=== PATIENT | male | born 1950 | race Two or more races ===

== ENCOUNTER 2020-03-30 10:50 | Emergency (ER) | payer OTHER ==
[~2020-03-30] VITALS: Ht 180.3 cm; Wt 81.6 kg
[2020-03-30] MEDS ORDERED: SODIUM CHLORIDE 0.9% 1,000 ML IVB ONE (11:15)
[2020-03-30 11:41] LABS: Basophils # (auto) 0.1 10 ^3/uL (0-0.2); Basophils % (auto) 0.9 % (0.0-2.0); Eosinophils # (auto) 0.2 10 ^3/uL (0-0.8); Hematocrit 47.5 % (41.0-53.0); Hemoglobin 16.2 g/dL (13.5-17.5); Lymphocytes # (auto) 1.3 10 ^3/uL (0.4-5.4); Lymphocytes % (auto) 19.1 % (10.0-50.0); Mean Corpuscular Hemoglobin 30.5 pg (28.0-32.0); Mean Corpuscular Hgb Conc. 34.1 g/dL (32.0-36.0); Mean Corpuscular Volume 89.4 fL (80.0-100.0); Monocytes # (auto) 0.3 10 ^3/uL (0-1.3); Monocytes % (auto) 5.1 % (0.0-12.0); Neutrophils # (auto) 4.7 10 ^3/uL (1.6-8.6); Neutrophils % (auto) 71.9 % (37.0-80.0); Platelet Count (auto) 198 10^3/uL (140-450); Red Blood Cells 5.31 10^6/uL (4.5-5.90); White Blood Cell 6.6 10^3/uL (4.4-10.8)
[2020-03-30] MEDS ORDERED: LABETALOL HCL 5 MG/ML 4ML SYRINGE IV ONE (11:45)
[2020-03-30 11:54] LABS: Albumin 3.4 g/dL (3.4-5.0); Calcium 8.9 mg/dL (8.5-10.1); Potassium 3.3 mmol/L (3.5-5.1)
[2020-03-30 11:58] LABS: Bilirubin, Total 0.6 mg/dL (0.2-1.0); Total Protein 7.1 g/dL (6.4-8.2)
[2020-03-30] MEDS ORDERED: POTASSIUM EFFERVESENT TAB 25 MEQ PO ONE (12:45)
[2020-03-30 14:39] LABS: Urine Bacteria NONE SEEN /hpf (None Seen); Urine Blood TRACE /uL (Negative); Urine Specific Gravity 1.019 (1.001-1.035); Urine WBC 2 /hpf (0 - 3)
[2020-03-30 14:54] LABS: Alcohol, Urine < 3.0 mg/dL (0-10); Amphetamine Screen, Urine NEGATIVE (NEGATIVE); Barbiturate Scree,Urine NEGATIVE (NEGATIVE); Benzodiazephine Screen, Urine NEGATIVE (NEGATIVE); Cannabinoid Screen, Urine NEGATIVE (NEGATIVE); Cocaine Screen, Urine NEGATIVE (NEGATIVE); Opiate Scree,Urine NEGATIVE (NEGATIVE); Phencyclidine Screen, Urine NEGATIVE (NEGATIVE)
[2020-03-30] MEDS ORDERED: MECLIZINE HCL 25 MG TAB PO ONE (16:00)
[2020-03-30] MEDS ORDERED: SODIUM CHLORIDE 0.9% 1,000 ML IV ONE (16:00)
[2020-03-30] MEDS ORDERED: INSULIN LISPRO (HUMAN) 100 UNITS/ML ML SC ONE ×2 (16:00→18:00)
[2020-03-30] MEDS ORDERED: LISINOPRIL 20 MG TAB PO ONE (18:30)
[2020-03-30 20:00] VITALS: BP 176/91
== END 2020-03-30 20:27 | disposition home or self-care (01) ==
LOC: ER 10:50
DX: I10 Essential (primary) hypertension (principal); E11.65 Type 2 diabetes mellitus with hyperglycemia; H81.10 Benign paroxysmal vertigo, unspecified ear; E11.21 Type 2 diabetes mellitus with diabetic nephropathy; E87.6 Hypokalemia
CPT/HCPCS: 36415; 71046; 80053; 80307; 81001; 82962; 83036; 83690; 83735; 84443; 85025; 93005; 96361; 96372; 96374; 99285; J1815; J3490; J7030; J8597

== ENCOUNTER 2021-03-23 08:07 | Inpatient (IN) | payer OTHER ==
[~2021-03-23] VITALS: Ht 182.9 cm; Wt 83.2 kg
[2021-03-23] MEDS ORDERED: SODIUM CHLORIDE 0.9% 1,000 ML IV ONE ×3 (08:30→16:45)
[2021-03-23] MEDS ORDERED: amLODIPine BESYLATE 5 MG TAB PO ONE (08:30)
[2021-03-23] MEDS ORDERED: ONDANSETRON HCL 4 MG/2 ML VIAL IV ONE (08:30)
[2021-03-23] MEDS ORDERED: LABETALOL HCL 5 MG/ML 4ML SYRINGE IV ONE (08:30)
[2021-03-23] MEDS ORDERED: KETOROLAC TROMETH 30 MG/ML 1ML VIAL IV ONE (08:30)
[2021-03-23 08:43] LABS: Urine Bacteria NONE SEEN /hpf (None Seen); Urine Blood 3+ /uL (Negative); Urine Specific Gravity 1.021 (1.001-1.035); Urine WBC 37 /hpf (0 - 3)
[2021-03-23 08:58] LABS: Basophils # (auto) 0.1 10 ^3/uL (0-0.2); Basophils % (auto) 0.8 % (0.0-2.0); Eosinophils # (auto) 0.1 10 ^3/uL (0-0.8); Eosinophils % (auto) 0.5 % (0.0-7.0); Hematocrit 41.9 % (41.0-53.0); Hemoglobin 14.7 g/dL (13.5-17.5); Lymphocytes # (auto) 0.9 10 ^3/uL (0.4-5.4); Lymphocytes % (auto) 8.1 % (10.0-50.0); Mean Corpuscular Hemoglobin 30.9 pg (28.0-32.0); Mean Corpuscular Hgb Conc. 35.2 g/dL (32.0-36.0); Mean Corpuscular Volume 87.9 fL (80.0-100.0); Monocytes # (auto) 0.4 10 ^3/uL (0-1.3); Neutrophils # (auto) 9.1 10 ^3/uL (1.6-8.6); Neutrophils % (auto) 86.6 % (37.0-80.0); Nucleated Red Blood Cells % 0.1 %; Platelet Count (auto) 284 10^3/uL (140-450); Red Blood Cells 4.77 10^6/uL (4.5-5.90); White Blood Cell 10.6 10^3/uL (4.4-10.8)
[2021-03-23 09:13] LABS: Albumin 3.3 g/dL (3.4-5.0); Anion Gap 10 (5-15); Blood Urea Nitrogen 30 mg/dL (7-18); Calcium 9.4 mg/dL (8.5-10.1); Carbon Dioxide 24 mmol/L (21-32); Chloride 93 mmol/L (98-107); Sodium 127 mmol/L (136-145)
[2021-03-23] MEDS ORDERED: cefTRIAXone 1GM/50ML D5W 50 ML IV ONE (09:15)
[2021-03-23] MEDS ORDERED: TAMSULOSIN HYDROCHLORIDE 0.4 MG CAP PO ONE (09:15)
[2021-03-23 09:17] LABS: Alanine Aminotransferase 54 U/L (16-61); Aspartate Aminotransferase 45 U/L (15-37); BUN/Creatinine Ratio 13.8; GFR African American 39 mL/min; GFR Non-African American 32 mL/min; Total Protein 7.4 g/dL (6.4-8.2)
[2021-03-23 09:22] LABS: Alkaline Phosphatase 269 U/L (45-117)
[2021-03-23 09:28] LABS: CRP High Sensitivity 0.47 mg/dL (< 0.3); Glucose 563 mg/dL (74-106)
[2021-03-23 10:07] LABS: Partial Thromboplastin Time 25.1 sec (23.0-31.2)
[2021-03-23] MEDS ORDERED: SODIUM CHLORIDE 0.9% 1,000 ML IV SCH (10:30)
[2021-03-23] MEDS ORDERED: INSULIN LANTUS (GLARGINE) 1 /0.01ml (100units/ml) SC SCH (10:30)
[2021-03-23] MEDS ORDERED: ACETAMINOPHEN 500 MG TAB PO PRN (10:30)
[2021-03-23] MEDS ORDERED: MORPHINE SULF INJ 2 MG/ML SYRINGE 1ML IV PRN ×2 (10:30)
[2021-03-23] MEDS ORDERED: DEXTROSE (50%) 50ML SYRG IV PRN ×3 (10:30→14:15)
[2021-03-23] MEDS ORDERED: ONDANSETRON HCL 4 MG/2 ML VIAL IV PRN (10:30)
[2021-03-23] MEDS ORDERED: LABETALOL HCL 5 MG/ML 4ML SYRINGE IV PRN (10:30)
[2021-03-23] MEDS ORDERED: NITROGLYCERIN 0.4 MG SL TAB SL PRN (10:30)
[2021-03-23 11:01] LABS: Cholesterol 267 mg/dL (< 200)
[2021-03-23 11:04] LABS: HDL Cholesterol 49 mg/dL (40-59); LDL Cholesterol 140 mg/dL (< 100); Triglycerides 344 mg/dL (< 150)
[2021-03-23] MEDS ORDERED: InsuLIN REG 1unit/0.01ml Soln (100units/ml) SC SCH ×2 (11:30→16:00)
[2021-03-23] MEDS ORDERED: ACCU-CHEK COMFORT CURVE STRIP VI SCH ×2 (11:30→16:00)
[2021-03-23 13:00] VITALS: BP 109/59
[2021-03-23] MEDS ORDERED: InsuLIN REG 1unit/0.01ml Soln (100units/ml) IV ONE ×2 (13:15→16:45)
[2021-03-23] MEDS: InsuLIN REG 1unit/0.01ml Soln (100units/ml) SC SCH ×2 (15:46→21:37)
[2021-03-23] MEDS: ACCU-CHEK COMFORT CURVE STRIP VI SCH ×2 (16:21→21:34)
[2021-03-23 17:00] VITALS: BP_SYST 108; BP_SYST 115; BP_DIAS 62; BP_DIAS 64
[2021-03-23] MEDS: TAMSULOSIN HYDROCHLORIDE 0.4 MG CAP PO SCH (17:52)
[2021-03-23] MEDS: GABAPENTIN 100 MG CAP PO SCH (21:34)
[2021-03-23] MEDS: SODIUM CHLORIDE 0.9% 1,000 ML IV SCH (21:34)
[2021-03-23] MEDS: INSULIN LANTUS (GLARGINE) 1 /0.01ml (100units/ml) SC SCH (21:36)
[2021-03-23 22:00] VITALS: BP 141/77
[2021-03-24] VITALS (12 sets, daily range): BP systolic 108–151; BP diastolic 62–86
[2021-03-24] MEDS: SODIUM CHLORIDE 0.9% 1,000 ML IV SCH ×3 (01:22→16:45)
[2021-03-24] MEDS: ACCU-CHEK COMFORT CURVE STRIP VI SCH ×5 (01:22→21:44)
[2021-03-24] MEDS: HYDROcodone-ACET 5/325MG TAB PO PRN ×2 (01:26→10:07)
[2021-03-24] MEDS: InsuLIN REG 1unit/0.01ml Soln (100units/ml) SC SCH ×5 (01:31→21:40)
[2021-03-24 07:07] LABS: Basophils # (auto) 0.1 10 ^3/uL (0-0.2); Basophils % (auto) 0.7 % (0.0-2.0); Eosinophils # (auto) 0.2 10 ^3/uL (0-0.8); Eosinophils % (auto) 2.8 % (0.0-7.0); Hematocrit 33.4 % (41.0-53.0); Hemoglobin 11.8 g/dL (13.5-17.5); Lymphocytes # (auto) 1.4 10 ^3/uL (0.4-5.4); Lymphocytes % (auto) 18.1 % (10.0-50.0); Mean Corpuscular Hgb Conc. 35.5 g/dL (32.0-36.0); Mean Corpuscular Volume 87.5 fL (80.0-100.0); Monocytes # (auto) 0.6 10 ^3/uL (0-1.3); Monocytes % (auto) 7.1 % (0.0-12.0); Neutrophils # (auto) 5.7 10 ^3/uL (1.6-8.6); Neutrophils % (auto) 71.3 % (37.0-80.0); Nucleated Red Blood Cells % 0.1 %; Platelet Count (auto) 239 10^3/uL (140-450); Red Blood Cells 3.82 10^6/uL (4.5-5.90); Red Cell Distribution Width 14.2 % (11.8-14.3)
[2021-03-24 07:17] LABS: INR 0.99 (0.9-1.15)
[2021-03-24 07:20] LABS: Potassium 4.1 mmol/L (3.5-5.1)
[2021-03-24 07:27] LABS: BUN/Creatinine Ratio 15.7; Calcium 8.4 mg/dL (8.5-10.1)
[2021-03-24] MEDS: cefTRIAXone 1GM/50ML D5W 50 ML IV SCH (08:54)
[2021-03-24] MEDS: ASPirin 81 mg TAB PO SCH (10:00)
[2021-03-24] MEDS: INSULIN LANTUS (GLARGINE) 1 /0.01ml (100units/ml) SC SCH ×2 (10:00→21:41)
[2021-03-24] MEDS: FAMOTIDINE 20 MG TAB PO SCH (10:00)
[2021-03-24] MEDS: GABAPENTIN 100 MG CAP PO SCH ×2 (10:00→21:18)
[2021-03-24] MEDS: amLODIPine BESYLATE 5 MG TAB PO SCH (10:06)
[2021-03-24] MEDS: METOPROLOL SUCCINATE XL 50 MG TAB PO SCH (10:06)
[2021-03-24] MEDS ORDERED: LACTULOSE 20Gm/30ML SOLN PO ONE (12:30)
[2021-03-24] MEDS ORDERED: fentaNYL CITRATE 100 MCG/2 ML VL IV ONE (13:00)
[2021-03-24] MEDS ORDERED: MIDAZOLAM HCL 1MG/1ML-2 ML VIAL IV ONE (13:00)
[2021-03-24] MEDS ORDERED: ATOR20TA50 PO (16:15)
[2021-03-24] MEDS ORDERED: ATEN-60 PO (16:15)
[2021-03-24] MEDS ORDERED: GLIP5TAB12 PO (16:15)
[2021-03-24] MEDS ORDERED: EMPA1TAB PO (16:15)
[2021-03-24] MEDS ORDERED: METF-370 PO (16:15)
[2021-03-24] MEDS ORDERED: INSU0.2I SC (16:15)
[2021-03-24] MEDS ORDERED: SITA100T7 PO (16:15)
[2021-03-24] MEDS ORDERED: ASPI-543 PO (16:15)
[2021-03-24] MEDS ORDERED: FENO145T27 PO (16:15)
[2021-03-24] MEDS: TAMSULOSIN HYDROCHLORIDE 0.4 MG CAP PO SCH (17:22)
[2021-03-24] MEDS: LACTULOSE 20Gm/30ML SOLN PO SCH (21:18)
[2021-03-25 05:30] VITALS: BP 132/81
[2021-03-25] MEDS: ACCU-CHEK COMFORT CURVE STRIP VI SCH ×4 (06:40→21:30)
[2021-03-25] MEDS: InsuLIN REG 1unit/0.01ml Soln (100units/ml) SC SCH ×4 (06:40→21:31)
[2021-03-25] MEDS: LACTULOSE 20Gm/30ML SOLN PO SCH ×2 (08:18→21:30)
[2021-03-25 09:00] VITALS: BP 151/81
[2021-03-25] MEDS: cefTRIAXone 1GM/50ML D5W 50 ML IV SCH (09:48)
[2021-03-25] MEDS: ASPirin 81 mg TAB PO SCH (09:49)
[2021-03-25] MEDS: FAMOTIDINE 20 MG TAB PO SCH (09:50)
[2021-03-25] MEDS: GABAPENTIN 100 MG CAP PO SCH ×2 (09:51→21:30)
[2021-03-25] MEDS: amLODIPine BESYLATE 5 MG TAB PO SCH (09:52)
[2021-03-25] MEDS: METOPROLOL SUCCINATE XL 50 MG TAB PO SCH (09:53)
[2021-03-25] MEDS: SODIUM CHLORIDE 0.9% 1,000 ML IV SCH ×3 (09:55→23:29)
[2021-03-25] MEDS: INSULIN LANTUS (GLARGINE) 1 /0.01ml (100units/ml) SC SCH ×2 (09:56→21:31)
[2021-03-25] MEDS ORDERED: FLEET ENEMA(ADULT) 135 ML PR ONE (10:45)
[2021-03-25 13:00] VITALS: BP 145/84
[2021-03-25] MEDS ORDERED: MAGNESIUM CITRATE SOLUTION 300 ML BTL PO ONE (13:30)
[2021-03-25 17:00] VITALS: BP 134/71
[2021-03-25] MEDS: TAMSULOSIN HYDROCHLORIDE 0.4 MG CAP PO SCH (17:17)
[2021-03-25 22:00] VITALS: BP 108/82
[2021-03-26 05:00] VITALS: BP 124/64
[2021-03-26] MEDS: InsuLIN REG 1unit/0.01ml Soln (100units/ml) SC SCH ×2 (06:32→11:30)
[2021-03-26] MEDS: ACCU-CHEK COMFORT CURVE STRIP VI SCH ×2 (06:32→11:30)
[2021-03-26] MEDS: SODIUM CHLORIDE 0.9% 1,000 ML IV SCH (08:45)
[2021-03-26 09:00] VITALS: BP 120/57
[2021-03-26] MEDS ORDERED: DOCUSATE SOD 100 MG CAP PO SCH (10:00)
[2021-03-26] MEDS: ASPirin 81 mg TAB PO SCH (10:21)
[2021-03-26] MEDS: cefTRIAXone 1GM/50ML D5W 50 ML IV SCH (10:21)
[2021-03-26] MEDS: LACTULOSE 20Gm/30ML SOLN PO SCH (10:22)
[2021-03-26] MEDS: GABAPENTIN 100 MG CAP PO SCH (10:22)
[2021-03-26] MEDS: INSULIN LANTUS (GLARGINE) 1 /0.01ml (100units/ml) SC SCH (10:23)
[2021-03-26] MEDS: METOPROLOL SUCCINATE XL 50 MG TAB PO SCH (10:23)
[2021-03-26] MEDS: amLODIPine BESYLATE 5 MG TAB PO SCH (10:24)
== END 2021-03-26 13:35 | disposition home or self-care (01) | DRG 690 ==
LOC: ER 08:07 → TELE 10:26 → TELE-WESTW 11:53
PROVIDERS: ADMIT Nurse Practitioner Acute Care; ATTEND Family Medicine
PROC: 0T9130Z Drainage of Left Kidney with Drainage Device, Percutaneous Approach (ICD-10-PCS; principal; 2021-03-24)
DX: N13.6 Pyonephrosis (principal); N17.0 Acute kidney failure with tubular necrosis; E11.65 Type 2 diabetes mellitus with hyperglycemia; E78.5 Hyperlipidemia, unspecified; I10 Essential (primary) hypertension; E11.42 Type 2 diabetes mellitus with diabetic polyneuropathy; E78.00 Pure hypercholesterolemia, unspecified; K59.00 Constipation, unspecified; K76.0 Fatty (change of) liver, not elsewhere classified; N40.0 Benign prostatic hyperplasia without lower urinary tract symptoms; Z79.4 Long term (current) use of insulin; Z86.73 Personal history of transient ischemic attack (TIA), and cerebral infarction without residual deficits; Z87.891 Personal history of nicotine dependence; Z87.442 Personal history of urinary calculi; Z93.6 Other artificial openings of urinary tract status; Z20.822 Contact with and (suspected) exposure to COVID-19
CPT/HCPCS: 10022; 36415; 50432; 71045; 74150; 74176; 77012; 80048; 80053; 80061; 81001; 82728; 82962; 83036; 83605; 83615; 84443; 84484; 85025; 85610; 85730; 86141; 87040; 87086; 87426; 93005; 96361; 96365; 96372; 96375; C1729; G0378; J0696; J1815; J1885; J2250; J2405; J3490

== ENCOUNTER 2021-04-09 14:25 | Emergency (ER) | payer OTHER ==
[~2021-04-09] VITALS: Ht 182.9 cm; Wt 81.6 kg
[~2021-04-09 14:25] MED LIST: ASPI-543 PO; ATEN-60 PO; ATOR20TA50 PO; EMPA1TAB PO; FENO145T27 PO; GLIP5TAB12 PO; INSU0.2I SC; METF-370 PO; SITA100T7 PO
[2021-04-09 15:16] LABS: Basophils # (auto) 0.1 10 ^3/uL (0-0.2); Basophils % (auto) 1.4 % (0.0-2.0); Eosinophils # (auto) 0.2 10 ^3/uL (0-0.8); Eosinophils % (auto) 4.4 % (0.0-7.0); Hematocrit 32.1 % (41.0-53.0); Hemoglobin 11.5 g/dL (13.5-17.5); Lymphocytes # (auto) 1.1 10 ^3/uL (0.4-5.4); Lymphocytes % (auto) 23.1 % (10.0-50.0); Mean Corpuscular Hemoglobin 31.4 pg (28.0-32.0); Mean Corpuscular Hgb Conc. 35.7 g/dL (32.0-36.0); Mean Corpuscular Volume 87.9 fL (80.0-100.0); Monocytes # (auto) 0.4 10 ^3/uL (0-1.3); Monocytes % (auto) 7.6 % (0.0-12.0); Neutrophils # (auto) 2.9 10 ^3/uL (1.6-8.6); Neutrophils % (auto) 63.5 % (37.0-80.0); Nucleated Red Blood Cells % 0.1 %; Platelet Count (auto) 242 10^3/uL (140-450); Red Blood Cells 3.66 10^6/uL (4.5-5.90); Red Cell Distribution Width 13.7 % (11.8-14.3); White Blood Cell 4.6 10^3/uL (4.4-10.8)
[2021-04-09 15:26] LABS: BUN/Creatinine Ratio 14.5; Calcium 8.1 mg/dL (8.5-10.1); Potassium 3.9 mmol/L (3.5-5.1)
[2021-04-09 15:30] LABS: Bilirubin, Total 0.4 mg/dL (0.2-1.0); Total Protein 6.1 g/dL (6.4-8.2)
[2021-04-09 16:35] LABS: Urine Bacteria NONE SEEN /hpf (None Seen); Urine Blood TRACE /uL (Negative); Urine Budding Yeast MODERATE /hpf (None Seen); Urine Specific Gravity 1.026 (1.001-1.035); Urine WBC 175 /hpf (0 - 3)
[2021-04-09 16:45] VITALS: BP 128/72
[2021-04-09] MEDS ORDERED: KETOROLAC TROMETH 30 MG/ML 1ML VIAL IV ONE (17:15)
== END 2021-04-09 18:05 | disposition home or self-care (01) ==
LOC: ER 14:25
DX: N20.0 Calculus of kidney (principal); N39.0 Urinary tract infection, site not specified; E11.9 Type 2 diabetes mellitus without complications; E78.5 Hyperlipidemia, unspecified; I10 Essential (primary) hypertension; Z87.891 Personal history of nicotine dependence
CPT/HCPCS: 36415; 74176; 80053; 81001; 85025; 96374; 99284; J1885

== ENCOUNTER 2021-04-18 01:44 | Inpatient (IN) | payer OTHER ==
[~2021-04-18] VITALS: Ht 182.9 cm; Wt 77.4 kg
[2021-04-18 02:52] LABS: Basophils # (auto) 0.1 10 ^3/uL (0-0.2); Basophils % (auto) 0.8 % (0.0-2.0); Eosinophils # (auto) 0 10 ^3/uL (0-0.8); Eosinophils % (auto) 0.1 % (0.0-7.0); Hematocrit 34.8 % (41.0-53.0); Hemoglobin 11.8 g/dL (13.5-17.5); Lymphocytes # (auto) 0.5 10 ^3/uL (0.4-5.4); Lymphocytes % (auto) 5.1 % (10.0-50.0); Mean Corpuscular Hemoglobin 30.2 pg (28.0-32.0); Mean Corpuscular Hgb Conc. 33.8 g/dL (32.0-36.0); Mean Corpuscular Volume 89.4 fL (80.0-100.0); Monocytes # (auto) 0.6 10 ^3/uL (0-1.3); Monocytes % (auto) 6.2 % (0.0-12.0); Neutrophils # (auto) 7.9 10 ^3/uL (1.6-8.6); Neutrophils % (auto) 87.8 % (37.0-80.0); Red Blood Cells 3.89 10^6/uL (4.5-5.90); Red Cell Distribution Width 13.9 % (11.8-14.3)
[2021-04-18 02:59] LABS: INR 1.05 (0.9-1.15); Partial Thromboplastin Time 28.5 sec (23.0-31.2)
[2021-04-18 03:00] LABS: Albumin 2.9 g/dL (3.4-5.0); Amylase 55 U/L (25-115); Anion Gap 12 (5-15); Blood Urea Nitrogen 29 mg/dL (7-18); Calcium 8.7 mg/dL (8.5-10.1); Carbon Dioxide 20 mmol/L (21-32); Chloride 106 mmol/L (98-107); Glucose 248 mg/dL (74-106); Lipase 101 U/L (73-393); Potassium 3.8 mmol/L (3.5-5.1); Sodium 138 mmol/L (136-145)
[2021-04-18 03:02] LABS: Alanine Aminotransferase 22 U/L (16-61); Aspartate Aminotransferase 20 U/L (15-37); BUN/Creatinine Ratio 13.7; GFR African American 40 mL/min; GFR Non-African American 33 mL/min
[2021-04-18 03:08] LABS: Alkaline Phosphatase 128 U/L (45-117); Bilirubin, Total 0.8 mg/dL (0.2-1.0); Total Protein 7.2 g/dL (6.4-8.2)
[2021-04-18 08:05] LABS: Urine Bacteria FEW /hpf (None Seen); Urine Blood 1+ /uL (Negative); Urine Budding Yeast MANY /hpf (None Seen); Urine Mucus FEW (None Seen); Urine Specific Gravity 1.022 (1.001-1.035); Urine WBC 302 /hpf (0 - 3); Urine WBC Clumps PRESENT /hpf (None Seen)
[2021-04-18] MEDS ORDERED: HYDROmorphone HCL 2 MG/ML VL IV ONE (09:15)
[2021-04-18] MEDS ORDERED: PROMETHAZINE HCL 25 MG/ML 1ML IV ONE (09:15)
[2021-04-18] MEDS ORDERED: cefTRIAXone 1GM/50ML D5W 50 ML IV ONE ×2 (10:45→13:45)
[2021-04-18] MEDS ORDERED: MORPHINE SULFATE INJECTION 2 MG/ML SYRG IV PRN (13:00)
[2021-04-18] MEDS ORDERED: NITROGLYCERIN 0.4 MG SL TAB SL PRN (13:00)
[2021-04-18] MEDS ORDERED: ONDANSETRON HCL 4 MG/2 ML VIAL IV PRN (13:45)
[2021-04-18] MEDS ORDERED: LABETALOL HCL 5 MG/ML 4ML SYRINGE IV PRN (13:45)
[2021-04-18] MEDS ORDERED: DEXTROSE (50%) 50ML SYRG IV PRN (13:45)
[2021-04-18] MEDS: SODIUM CHLORIDE 0.9% 1,000 ML IV SCH ×2 (15:06→23:45)
[2021-04-18] MEDS: FAMOTIDINE (10MG/ML) 2ML VL IV SCH (15:06)
[2021-04-18 15:45] VITALS: BP 156/108
[2021-04-18] MEDS: ACCU-CHEK COMFORT CURVE STRIP VI SCH ×2 (16:36→22:03)
[2021-04-18 17:00] VITALS: BP 156/108
[2021-04-18] MEDS: TAMSULOSIN HYDROCHLORIDE 0.4 MG CAP PO SCH (17:11)
[2021-04-18] MEDS: InsuLIN REG 1unit/0.01ml Soln (100units/ml) SC SCH ×2 (17:12→22:00)
[2021-04-18 22:00] VITALS: BP 194/91
[2021-04-18] MEDS: ACETAMINOPHEN 500 MG TAB PO PRN (22:15)
[2021-04-19 05:00] VITALS: BP 156/79
[2021-04-19 05:54] LABS: Basophils # (auto) 0.1 10 ^3/uL (0-0.2); Basophils % (auto) 0.7 % (0.0-2.0); Eosinophils # (auto) 0 10 ^3/uL (0-0.8); Eosinophils % (auto) 0.4 % (0.0-7.0); Hematocrit 31.3 % (41.0-53.0); Hemoglobin 11.1 g/dL (13.5-17.5); Lymphocytes # (auto) 0.3 10 ^3/uL (0.4-5.4); Lymphocytes % (auto) 3.3 % (10.0-50.0); Mean Corpuscular Hemoglobin 31.3 pg (28.0-32.0); Mean Corpuscular Hgb Conc. 35.5 g/dL (32.0-36.0); Mean Corpuscular Volume 88.2 fL (80.0-100.0); Monocytes # (auto) 0.7 10 ^3/uL (0-1.3); Monocytes % (auto) 8.4 % (0.0-12.0); Neutrophils # (auto) 7.2 10 ^3/uL (1.6-8.6); Neutrophils % (auto) 87.2 % (37.0-80.0); Red Blood Cells 3.55 10^6/uL (4.5-5.90); Red Cell Distribution Width 13.5 % (11.8-14.3); White Blood Cell 8.2 10^3/uL (4.4-10.8)
[2021-04-19] MEDS: ACCU-CHEK COMFORT CURVE STRIP VI SCH ×4 (06:03→21:53)
[2021-04-19 06:07] LABS: Albumin 2.6 g/dL (3.4-5.0); Calcium 8.6 mg/dL (8.5-10.1); Potassium 3.9 mmol/L (3.5-5.1)
[2021-04-19 06:11] LABS: BUN/Creatinine Ratio 16.3; Bilirubin, Total 0.9 mg/dL (0.2-1.0); Total Protein 6.5 g/dL (6.4-8.2)
[2021-04-19] MEDS: InsuLIN REG 1unit/0.01ml Soln (100units/ml) SC SCH ×4 (06:15→22:15)
[2021-04-19] MEDS: FAMOTIDINE (10MG/ML) 2ML VL IV SCH (08:57)
[2021-04-19] MEDS: cefTRIAXone 1GM/50ML D5W 50 ML IV SCH (08:57)
[2021-04-19] MEDS: SODIUM CHLORIDE 0.9% 1,000 ML IV SCH ×2 (08:57→22:03)
[2021-04-19 08:59] VITALS: BP 113/69
[2021-04-19] MEDS ORDERED: glipiZIDE 5 MG TAB PO ONE (09:45)
[2021-04-19] MEDS: traMADol HCL 50 MG TAB PO PRN (10:04)
[2021-04-19] MEDS: ASPirin-EC 81 mg tab PO SCH (10:28)
[2021-04-19] MEDS: ATENOLOL 25 MG TAB PO SCH ×2 (10:30→22:02)
[2021-04-19] MEDS: Glucerna Carbsteady SHAKE Vanilla 8oz PO SCH ×2 (12:53→18:29)
[2021-04-19 13:11] VITALS: BP 138/88
[2021-04-19 17:00] VITALS: BP 152/81
[2021-04-19] MEDS: TAMSULOSIN HYDROCHLORIDE 0.4 MG CAP PO SCH (17:20)
[2021-04-19] MEDS: glipiZIDE 5 MG TAB PO SCH (17:20)
[2021-04-19 22:00] VITALS: BP 148/81
[2021-04-19] MEDS: ATORVASTATIN 20 MG TAB PO SCH (22:02)
[2021-04-20 05:00] VITALS: BP 133/92
[2021-04-20] MEDS: SODIUM CHLORIDE 0.9% 1,000 ML IV SCH ×2 (05:45→15:45)
[2021-04-20] MEDS: InsuLIN REG 1unit/0.01ml Soln (100units/ml) SC SCH ×4 (06:16→22:00)
[2021-04-20] MEDS: ACCU-CHEK COMFORT CURVE STRIP VI SCH ×4 (06:16→22:00)
[2021-04-20] MEDS: glipiZIDE 5 MG TAB PO SCH ×2 (06:16→18:14)
[2021-04-20 06:58] LABS: Basophils # (auto) 0 10 ^3/uL (0-0.2); Basophils % (auto) 0.5 % (0.0-2.0); Eosinophils # (auto) 0.2 10 ^3/uL (0-0.8); Hematocrit 29.8 % (41.0-53.0); Hemoglobin 10.7 g/dL (13.5-17.5); Lymphocytes # (auto) 0.5 10 ^3/uL (0.4-5.4); Mean Corpuscular Hemoglobin 31.4 pg (28.0-32.0); Mean Corpuscular Hgb Conc. 35.9 g/dL (32.0-36.0); Mean Corpuscular Volume 87.3 fL (80.0-100.0); Monocytes # (auto) 0.8 10 ^3/uL (0-1.3); Monocytes % (auto) 10.1 % (0.0-12.0); Neutrophils # (auto) 6.3 10 ^3/uL (1.6-8.6); Neutrophils % (auto) 81.4 % (37.0-80.0); Red Blood Cells 3.42 10^6/uL (4.5-5.90); Red Cell Distribution Width 13.5 % (11.8-14.3); White Blood Cell 7.7 10^3/uL (4.4-10.8)
[2021-04-20 07:23] LABS: Calcium 8.6 mg/dL (8.5-10.1); Potassium 3.8 mmol/L (3.5-5.1)
[2021-04-20 07:26] LABS: BUN/Creatinine Ratio 16.6
[2021-04-20 08:00] VITALS: BP 148/81
[2021-04-20] MEDS: Glucerna Carbsteady SHAKE Vanilla 8oz PO SCH ×3 (08:00→18:14)
[2021-04-20 09:00] VITALS: BP 161/85
[2021-04-20] MEDS: FAMOTIDINE (10MG/ML) 2ML VL IV SCH (09:15)
[2021-04-20] MEDS: cefTRIAXone 1GM/50ML D5W 50 ML IV SCH (09:15)
[2021-04-20] MEDS: ATENOLOL 25 MG TAB PO SCH ×3 (09:17→22:52)
[2021-04-20] MEDS: ASPirin-EC 81 mg tab PO SCH (10:00)
[2021-04-20 10:21] LABS: INR 1.13 (0.9-1.15); Partial Thromboplastin Time 32.2 sec (23.0-31.2)
[2021-04-20] MEDS ORDERED: LIDOCAINE 2%HCL (LOCAL ANESTH.) INJ 20ML MDV ONE (11:39)
[2021-04-20 13:00] VITALS: BP 131/91
[2021-04-20] MEDS ORDERED: TADA2.5T PO (13:30)
[2021-04-20] MEDS ORDERED: AMLO-489 PO (13:30)
[2021-04-20] MEDS ORDERED: TAMS1CAP25 PO (13:30)
[2021-04-20] MEDS ORDERED: LEVO-28 PO (13:30)
[2021-04-20] MEDS ORDERED: DOCU1CAP46 PO (13:30)
[2021-04-20 17:00] VITALS: BP 159/73
[2021-04-20] MEDS: TAMSULOSIN HYDROCHLORIDE 0.4 MG CAP PO SCH (18:14)
[2021-04-20 22:00] VITALS: BP 162/87
[2021-04-20] MEDS: ATORVASTATIN 20 MG TAB PO SCH ×2 (22:00→22:52)
[2021-04-20] MEDS: ACETAMINOPHEN 500 MG TAB PO PRN (23:45)
[2021-04-21] MEDS: traMADol HCL 50 MG TAB PO PRN ×2 (01:44→18:10)
[2021-04-21 05:00] VITALS: BP 138/75
[2021-04-21] MEDS: SODIUM CHLORIDE 0.9% 1,000 ML IV SCH (05:25)
[2021-04-21] MEDS: glipiZIDE 5 MG TAB PO SCH ×2 (06:03→18:24)
[2021-04-21] MEDS: ACCU-CHEK COMFORT CURVE STRIP VI SCH ×4 (06:03→21:33)
[2021-04-21] MEDS: InsuLIN REG 1unit/0.01ml Soln (100units/ml) SC SCH ×4 (06:03→21:35)
[2021-04-21] MEDS: Glucerna Carbsteady SHAKE Vanilla 8oz PO SCH ×3 (08:00→18:24)
[2021-04-21] MEDS: cefTRIAXone 1GM/50ML D5W 50 ML IV SCH (09:00)
[2021-04-21] MEDS: ASPirin-EC 81 mg tab PO SCH (10:01)
[2021-04-21] MEDS: FAMOTIDINE (10MG/ML) 2ML VL IV SCH (10:01)
[2021-04-21] MEDS: ATENOLOL 25 MG TAB PO SCH ×2 (10:02→21:33)
[2021-04-21] MEDS ORDERED: amLODIPine BESYLATE 5 MG TAB PO ONE (10:30)
[2021-04-21] MEDS ORDERED: INSULIN LANTUS (GLARGINE) 1 /0.01ml (100units/ml) SC ONE (10:45)
[2021-04-21 14:25] LABS: BUN/Creatinine Ratio 19.6; Calcium 8.4 mg/dL (8.5-10.1); Potassium 3.5 mmol/L (3.5-5.1)
[2021-04-21] MEDS: TAMSULOSIN HYDROCHLORIDE 0.4 MG CAP PO SCH (18:24)
[2021-04-21] MEDS: ATORVASTATIN 20 MG TAB PO SCH (21:33)
[2021-04-21 22:00] VITALS: BP 134/69
[2021-04-22 05:25] VITALS: BP 152/81
[2021-04-22] MEDS: ACCU-CHEK COMFORT CURVE STRIP VI SCH ×4 (06:28→22:06)
[2021-04-22] MEDS: glipiZIDE 5 MG TAB PO SCH ×2 (06:36→18:17)
[2021-04-22] MEDS: InsuLIN REG 1unit/0.01ml Soln (100units/ml) SC SCH ×4 (06:36→22:07)
[2021-04-22] MEDS: DOCUSATE SOD 100 MG CAP PO PRN (06:53)
[2021-04-22 09:00] VITALS: BP 135/75
[2021-04-22] MEDS: Glucerna Carbsteady SHAKE Vanilla 8oz PO SCH ×3 (10:32→18:17)
[2021-04-22] MEDS: amLODIPine BESYLATE 5 MG TAB PO SCH (10:33)
[2021-04-22] MEDS: ATENOLOL 25 MG TAB PO SCH ×2 (10:34→22:06)
[2021-04-22] MEDS: INSULIN LANTUS (GLARGINE) 1 /0.01ml (100units/ml) SC SCH (11:54)
[2021-04-22 13:00] VITALS: BP 142/70
[2021-04-22] MEDS: cefTRIAXone 1GM/50ML D5W 50 ML IV SCH (16:44)
[2021-04-22 17:00] VITALS: BP 146/71
[2021-04-22] MEDS: TAMSULOSIN HYDROCHLORIDE 0.4 MG CAP PO SCH (18:17)
[2021-04-22] MEDS: FLUCONAZOLE 200MG/100ML 100 ML IV SCH (18:31)
[2021-04-22] MEDS: traMADol HCL 50 MG TAB PO PRN (19:54)
[2021-04-22 22:00] VITALS: BP 139/70
[2021-04-22] MEDS: ATORVASTATIN 20 MG TAB PO SCH (22:05)
[2021-04-23 05:00] VITALS: BP 138/71
[2021-04-23] MEDS: ACETAMINOPHEN 500 MG TAB PO PRN (05:37)
[2021-04-23 06:42] LABS: BUN/Creatinine Ratio 19.6; Calcium 8.1 mg/dL (8.5-10.1); Potassium 3.5 mmol/L (3.5-5.1)
[2021-04-23] MEDS: InsuLIN REG 1unit/0.01ml Soln (100units/ml) SC SCH ×3 (06:44→23:54)
[2021-04-23] MEDS: ACCU-CHEK COMFORT CURVE STRIP VI SCH ×4 (06:44→22:00)
[2021-04-23] MEDS: glipiZIDE 5 MG TAB PO SCH (06:44)
[2021-04-23] MEDS: Glucerna Carbsteady SHAKE Vanilla 8oz PO SCH ×3 (08:00→18:00)
[2021-04-23 09:00] VITALS: BP 136/73
[2021-04-23] MEDS: cefTRIAXone 1GM/50ML D5W 50 ML IV SCH (09:30)
[2021-04-23] MEDS: INSULIN LANTUS (GLARGINE) 1 /0.01ml (100units/ml) SC SCH (10:00)
[2021-04-23] MEDS: FLUCONAZOLE 200MG/100ML 100 ML IV SCH (10:32)
[2021-04-23] MEDS: ATENOLOL 25 MG TAB PO SCH ×2 (10:33→23:16)
[2021-04-23] MEDS: amLODIPine BESYLATE 5 MG TAB PO SCH (10:33)
[2021-04-23] MEDS: MORPHINE SULFATE INJECTION 2 MG/ML SYRG IV PRN (12:09)
[2021-04-23 13:00] VITALS: BP 152/89
[2021-04-23] MEDS: traMADol HCL 50 MG TAB PO PRN (14:33)
[2021-04-23] MEDS ORDERED: ONDANSETRON HCL 4 MG/2 ML VIAL ONE (15:57)
[2021-04-23] MEDS ORDERED: SODIUM CHLORIDE LOCK 10 ML ONE (15:57)
[2021-04-23] MEDS ORDERED: MIDAZOLAM HCL 2MG/2ML 2ml VIAL (1mg/ml) ONE (15:57)
[2021-04-23] MEDS ORDERED: fentaNYL CITRATE 100 MCG/2 ML VL ONE (15:57)
[2021-04-23] MEDS ORDERED: PROPOFOL 10 MG/ML 20 ML IV ONE (15:57)
[2021-04-23] MEDS: TAMSULOSIN HYDROCHLORIDE 0.4 MG CAP PO SCH (18:00)
[2021-04-23] MEDS ORDERED: IOHEXOL 300 MG/ML 100ML BOTTLE IJ ONE (18:07)
[2021-04-23] MEDS ORDERED: MORPHINE SULFATE 4 MG/ML SYR/VIAL IV PRN (18:15)
[2021-04-23] MEDS ORDERED: METOCLOPRAMIDE HCL 5MG/ml INJ 2ml VIAL IV PRN (18:15)
[2021-04-23] MEDS ORDERED: HYDROmorphone HCL 2 MG/ML VL IV PRN (18:15)
[2021-04-23] MEDS ORDERED: ACCU-CHEK COMFORT CURVE STRIP VI ONE (18:15)
[2021-04-23] MEDS ORDERED: ROCURONIUM 10MG/ML 10ML VIAL IV ONE (18:18)
[2021-04-23] MEDS: ATORVASTATIN 20 MG TAB PO SCH (23:15)
[2021-04-24 05:00] VITALS: BP 109/63
[2021-04-24] MEDS: glipiZIDE 5 MG TAB PO SCH ×2 (06:54→17:57)
[2021-04-24] MEDS: ACCU-CHEK COMFORT CURVE STRIP VI SCH ×4 (06:54→21:24)
[2021-04-24] MEDS: InsuLIN REG 1unit/0.01ml Soln (100units/ml) SC SCH ×4 (06:55→21:23)
[2021-04-24] MEDS: ACETAMINOPHEN 500 MG TAB PO PRN (07:07)
[2021-04-24] MEDS: Glucerna Carbsteady SHAKE Vanilla 8oz PO SCH ×3 (07:53→17:57)
[2021-04-24 08:00] VITALS: BP 103/59
[2021-04-24] MEDS: cefTRIAXone 1GM/50ML D5W 50 ML IV SCH (09:07)
[2021-04-24] MEDS: FLUCONAZOLE 200MG/100ML 100 ML IV SCH (09:59)
[2021-04-24] MEDS: ENOXAPARIN SOD 40 MG/0.4 ML SYRINGE SC SCH (10:01)
[2021-04-24] MEDS: ATENOLOL 25 MG TAB PO SCH ×2 (10:03→21:24)
[2021-04-24] MEDS: amLODIPine BESYLATE 5 MG TAB PO SCH (10:04)
[2021-04-24 10:22] VITALS: BP 127/62
[2021-04-24] MEDS: INSULIN LANTUS (GLARGINE) 1 /0.01ml (100units/ml) SC SCH (11:36)
[2021-04-24 11:46] VITALS: BP 128/69
[2021-04-24 16:51] VITALS: BP_SYST 126; BP_SYST 127; BP_DIAS 59; BP_DIAS 62
[2021-04-24] MEDS: TAMSULOSIN HYDROCHLORIDE 0.4 MG CAP PO SCH (17:57)
[2021-04-24] MEDS: ATORVASTATIN 20 MG TAB PO SCH (21:24)
[2021-04-24 21:30] VITALS: BP 133/73
[2021-04-25 04:41] VITALS: BP 140/70
[2021-04-25] MEDS: ACCU-CHEK COMFORT CURVE STRIP VI SCH ×4 (05:46→21:53)
[2021-04-25] MEDS: glipiZIDE 5 MG TAB PO SCH ×2 (05:46→17:47)
[2021-04-25] MEDS: InsuLIN REG 1unit/0.01ml Soln (100units/ml) SC SCH ×4 (05:46→22:02)
[2021-04-25] MEDS: Glucerna Carbsteady SHAKE Vanilla 8oz PO SCH ×3 (08:00→17:47)
[2021-04-25 09:00] VITALS: BP 137/71
[2021-04-25] MEDS: cefTRIAXone 1GM/50ML D5W 50 ML IV SCH (09:00)
[2021-04-25] MEDS: FLUCONAZOLE 200MG/100ML 100 ML IV SCH (10:00)
[2021-04-25] MEDS: amLODIPine BESYLATE 5 MG TAB PO SCH (10:00)
[2021-04-25] MEDS: INSULIN LANTUS (GLARGINE) 1 /0.01ml (100units/ml) SC SCH (10:00)
[2021-04-25] MEDS: ENOXAPARIN SOD 40 MG/0.4 ML SYRINGE SC SCH (10:00)
[2021-04-25] MEDS: ATENOLOL 25 MG TAB PO SCH ×2 (10:00→21:53)
[2021-04-25 13:00] VITALS: BP 134/78
[2021-04-25 17:00] VITALS: BP 159/79
[2021-04-25] MEDS: TAMSULOSIN HYDROCHLORIDE 0.4 MG CAP PO SCH (17:46)
[2021-04-25 20:00] VITALS: BP 143/69
[2021-04-25] MEDS: ATORVASTATIN 20 MG TAB PO SCH (21:51)
[2021-04-25 22:00] VITALS: BP 143/69
[2021-04-26 05:00] VITALS: BP 112/76
[2021-04-26] MEDS: ACCU-CHEK COMFORT CURVE STRIP VI SCH ×4 (06:49→22:25)
[2021-04-26] MEDS: InsuLIN REG 1unit/0.01ml Soln (100units/ml) SC SCH ×4 (06:54→22:25)
[2021-04-26] MEDS: glipiZIDE 5 MG TAB PO SCH ×2 (06:58→08:11)
[2021-04-26 07:02] LABS: Calcium 8.2 mg/dL (8.5-10.1); Potassium 3.7 mmol/L (3.5-5.1)
[2021-04-26] MEDS: Glucerna Carbsteady SHAKE Vanilla 8oz PO SCH ×3 (08:12→17:48)
[2021-04-26] MEDS: cefTRIAXone 1GM/50ML D5W 50 ML IV SCH (08:39)
[2021-04-26] MEDS: ENOXAPARIN SOD 40 MG/0.4 ML SYRINGE SC SCH (10:04)
[2021-04-26] MEDS: FLUCONAZOLE 200MG/100ML 100 ML IV SCH (10:04)
[2021-04-26] MEDS: amLODIPine BESYLATE 5 MG TAB PO SCH (10:04)
[2021-04-26] MEDS: ATENOLOL 25 MG TAB PO SCH ×2 (10:04→22:25)
[2021-04-26] MEDS: INSULIN LANTUS (GLARGINE) 1 /0.01ml (100units/ml) SC SCH (12:03)
[2021-04-26] MEDS: TAMSULOSIN HYDROCHLORIDE 0.4 MG CAP PO SCH (17:48)
[2021-04-26 22:00] VITALS: BP 156/82
[2021-04-26] MEDS: ATORVASTATIN 20 MG TAB PO SCH (22:24)
[2021-04-26] MEDS ORDERED: TEMAZEPAM 15 MG CAP PO ONE (23:00)
[2021-04-27 06:00] VITALS: BP 150/77
[2021-04-27] MEDS: glipiZIDE 5 MG TAB PO SCH ×2 (06:15→18:06)
[2021-04-27] MEDS: InsuLIN REG 1unit/0.01ml Soln (100units/ml) SC SCH ×4 (06:16→22:05)
[2021-04-27] MEDS: ACCU-CHEK COMFORT CURVE STRIP VI SCH ×4 (06:25→22:03)
[2021-04-27] MEDS: Glucerna Carbsteady SHAKE Vanilla 8oz PO SCH ×3 (08:00→18:07)
[2021-04-27 09:00] VITALS: BP 133/71
[2021-04-27] MEDS: INSULIN LANTUS (GLARGINE) 1 /0.01ml (100units/ml) SC SCH (10:00)
[2021-04-27] MEDS: FLUCONAZOLE 200MG/100ML 100 ML IV SCH (10:21)
[2021-04-27] MEDS: ATENOLOL 25 MG TAB PO SCH ×2 (10:22→22:04)
[2021-04-27] MEDS: amLODIPine BESYLATE 5 MG TAB PO SCH (10:22)
[2021-04-27] MEDS: ENOXAPARIN SOD 40 MG/0.4 ML SYRINGE SC SCH (10:24)
[2021-04-27 13:00] VITALS: BP 154/78
[2021-04-27 17:00] VITALS: BP 174/83
[2021-04-27] MEDS: TAMSULOSIN HYDROCHLORIDE 0.4 MG CAP PO SCH (18:06)
[2021-04-27 22:00] VITALS: BP 157/83
[2021-04-27] MEDS: ATORVASTATIN 20 MG TAB PO SCH (22:04)
[2021-04-27] MEDS: TEMAZEPAM 15 MG CAP PO PRN (22:46)
[2021-04-28] MEDS: MORPHINE SULFATE INJECTION 2 MG/ML SYRG IV PRN (04:59)
[2021-04-28 05:00] VITALS: BP 156/73
[2021-04-28] MEDS: glipiZIDE 5 MG TAB PO SCH ×2 (06:47→18:29)
[2021-04-28] MEDS: InsuLIN REG 1unit/0.01ml Soln (100units/ml) SC SCH ×4 (06:48→22:17)
[2021-04-28] MEDS: ACCU-CHEK COMFORT CURVE STRIP VI SCH ×4 (06:57→22:16)
[2021-04-28] MEDS: Glucerna Carbsteady SHAKE Vanilla 8oz PO SCH ×3 (08:00→18:00)
[2021-04-28 09:00] VITALS: BP 151/86
[2021-04-28] MEDS: FLUCONAZOLE 200MG/100ML 100 ML IV SCH (10:26)
[2021-04-28] MEDS: ATENOLOL 25 MG TAB PO SCH (10:30)
[2021-04-28] MEDS ORDERED: amLODIPine BESYLATE 5 MG TAB PO ONE ×2 (10:30→11:00)
[2021-04-28] MEDS: ENOXAPARIN SOD 40 MG/0.4 ML SYRINGE SC SCH (10:31)
[2021-04-28] MEDS: INSULIN LANTUS (GLARGINE) 1 /0.01ml (100units/ml) SC SCH (10:35)
[2021-04-28 13:30] VITALS: BP 142/83
[2021-04-28 17:05] VITALS: BP 140/75
[2021-04-28] MEDS: TAMSULOSIN HYDROCHLORIDE 0.4 MG CAP PO SCH (18:28)
[2021-04-28 22:00] VITALS: BP 146/77
[2021-04-28] MEDS: ATORVASTATIN 20 MG TAB PO SCH (22:16)
[2021-04-28] MEDS: TEMAZEPAM 15 MG CAP PO PRN (22:18)
[2021-04-29 05:00] VITALS: BP 143/79
[2021-04-29] MEDS: InsuLIN REG 1unit/0.01ml Soln (100units/ml) SC SCH ×4 (06:04→22:00)
[2021-04-29] MEDS: glipiZIDE 5 MG TAB PO SCH (06:04)
[2021-04-29] MEDS: ACCU-CHEK COMFORT CURVE STRIP VI SCH ×4 (06:05→22:29)
[2021-04-29 07:40] LABS: Anion Gap 8 (5-15); BUN/Creatinine Ratio 16.8; Blood Urea Nitrogen 21 mg/dL (7-18); Calcium 8.1 mg/dL (8.5-10.1); Carbon Dioxide 19 mmol/L (21-32); Chloride 110 mmol/L (98-107); GFR African American 73 mL/min; GFR Non-African American 61 mL/min; Glucose 82 mg/dL (74-106); Potassium 3.7 mmol/L (3.5-5.1); Sodium 137 mmol/L (136-145)
[2021-04-29] MEDS: Glucerna Carbsteady SHAKE Vanilla 8oz PO SCH ×3 (08:00→18:00)
[2021-04-29 08:53] VITALS: BP 150/80
[2021-04-29] MEDS: amLODIPine BESYLATE 5 MG TAB PO SCH (09:55)
[2021-04-29] MEDS: FLUCONAZOLE 200MG/100ML 100 ML IV SCH (09:56)
[2021-04-29] MEDS: ENOXAPARIN SOD 40 MG/0.4 ML SYRINGE SC SCH (09:56)
[2021-04-29] MEDS: INSULIN LANTUS (GLARGINE) 1 /0.01ml (100units/ml) SC SCH (09:59)
[2021-04-29 13:00] VITALS: BP 136/78
[2021-04-29 17:33] VITALS: BP 134/78
[2021-04-29] MEDS: TAMSULOSIN HYDROCHLORIDE 0.4 MG CAP PO SCH (18:00)
[2021-04-29 22:00] VITALS: BP 148/83
[2021-04-29] MEDS: TEMAZEPAM 15 MG CAP PO PRN (22:28)
[2021-04-29] MEDS: ATORVASTATIN 20 MG TAB PO SCH (22:29)
[2021-04-30 05:48] VITALS: BP 147/77
[2021-04-30] MEDS: InsuLIN REG 1unit/0.01ml Soln (100units/ml) SC SCH ×4 (06:53→21:42)
[2021-04-30] MEDS: ACCU-CHEK COMFORT CURVE STRIP VI SCH ×4 (06:53→21:41)
[2021-04-30] MEDS ORDERED: ceFAZolin 1GM/50ML 100 ML IV ONE (07:58)
[2021-04-30] MEDS: Glucerna Carbsteady SHAKE Vanilla 8oz PO SCH ×3 (08:00→17:47)
[2021-04-30 09:06] VITALS: BP 142/77
[2021-04-30] MEDS ORDERED: NEOSTIGMINE 1 MG/ML INJ (10mg/10ML VIAL) IV ONE (09:10)
[2021-04-30] MEDS ORDERED: GLYCOPYRROLATE 0.2 MG/ML 1ML VIAL IV ONE (09:10)
[2021-04-30] MEDS ORDERED: IOHEXOL 300 MG/ML 100ML BOTTLE IJ ONE (09:14)
[2021-04-30] MEDS ORDERED: MIDAZOLAM HCL 2MG/2ML 2ml VIAL (1mg/ml) ONE (09:25)
[2021-04-30] MEDS ORDERED: fentaNYL CITRATE 100 MCG/2 ML VL ONE (09:25)
[2021-04-30] MEDS: amLODIPine BESYLATE 5 MG TAB PO SCH (10:00)
[2021-04-30] MEDS: INSULIN LANTUS (GLARGINE) 1 /0.01ml (100units/ml) SC SCH (10:00)
[2021-04-30] MEDS: FLUCONAZOLE 200MG/100ML 100 ML IV SCH (10:00)
[2021-04-30] MEDS ORDERED: ONDANSETRON HCL 4 MG/2 ML VIAL IV PRN (11:45)
[2021-04-30] MEDS ORDERED: HYDROmorphone HCL 2 MG/ML VL ONE (11:48)
[2021-04-30] MEDS: HYDROmorphone HCL 2 MG/ML VL IV PRN ×3 (12:01→12:22)
[2021-04-30] MEDS ORDERED: TAM04C PO (15:29)
[2021-04-30] MEDS ORDERED: AMLO-496 PO (15:29)
[2021-04-30] MEDS ORDERED: LACTULOSE 20Gm/30ML SOLN PO ONE (16:00)
[2021-04-30 16:50] VITALS: BP 144/81
[2021-04-30] MEDS: TAMSULOSIN HYDROCHLORIDE 0.4 MG CAP PO SCH (17:46)
[2021-04-30] MEDS: ATORVASTATIN 20 MG TAB PO SCH (21:44)
[2021-04-30] MEDS: DOCUSATE SOD 100 MG CAP PO PRN (21:47)
[2021-04-30 22:00] VITALS: BP 145/75
[2021-04-30] MEDS: traMADol HCL 50 MG TAB PO PRN (23:25)
[2021-05-01] MEDS: MORPHINE SULFATE INJECTION 2 MG/ML SYRG IV PRN ×2 (00:06→09:55)
[2021-05-01 05:00] VITALS: BP 105/66
[2021-05-01 05:58] LABS: Basophils # (auto) 0.1 10 ^3/uL (0-0.2); Basophils % (auto) 0.9 % (0.0-2.0); Eosinophils # (auto) 0.1 10 ^3/uL (0-0.8); Eosinophils % (auto) 1.3 % (0.0-7.0); Hemoglobin 9.3 g/dL (13.5-17.5); Lymphocytes # (auto) 0.9 10 ^3/uL (0.4-5.4); Mean Corpuscular Hemoglobin 30.2 pg (28.0-32.0); Mean Corpuscular Hgb Conc. 34.5 g/dL (32.0-36.0); Mean Corpuscular Volume 87.5 fL (80.0-100.0); Monocytes # (auto) 0.5 10 ^3/uL (0-1.3); Monocytes % (auto) 6.1 % (0.0-12.0); Neutrophils # (auto) 7.3 10 ^3/uL (1.6-8.6); Neutrophils % (auto) 81.7 % (37.0-80.0); Red Blood Cells 3.09 10^6/uL (4.5-5.90); Red Cell Distribution Width 13.9 % (11.8-14.3); White Blood Cell 8.9 10^3/uL (4.4-10.8)
[2021-05-01 06:20] LABS: BUN/Creatinine Ratio 16.1; Calcium 7.6 mg/dL (8.5-10.1); Potassium 4.2 mmol/L (3.5-5.1)
[2021-05-01] MEDS: InsuLIN REG 1unit/0.01ml Soln (100units/ml) SC SCH (06:24)
[2021-05-01] MEDS: ACCU-CHEK COMFORT CURVE STRIP VI SCH (06:24)
[2021-05-01] MEDS: Glucerna Carbsteady SHAKE Vanilla 8oz PO SCH (08:00)
[2021-05-01 09:00] VITALS: BP 139/72
[2021-05-01] MEDS: FLUCONAZOLE 200MG/100ML 100 ML IV SCH (09:54)
[2021-05-01] MEDS: amLODIPine BESYLATE 5 MG TAB PO SCH (09:54)
[2021-05-01] MEDS ORDERED: INSULIN LANTUS (GLARGINE) 1 /0.01ml (100units/ml) SC SCH (10:00)
== END 2021-05-01 11:00 | disposition home or self-care (01) | DRG 659 ==
LOC: ER 01:44 → TELE 12:57 → ER 15:38 → TELE-WESTW 15:55 → WEST WING 04-21 10:23
PROVIDERS: ADMIT Internal Medicine; ATTEND Internal Medicine
PROC: 0T25X0Z Change Drainage Device in Kidney, External Approach (ICD-10-PCS; 2021-04-20)
PROC: BT121ZZ Fluoroscopy of Left Kidney using Low Osmolar Contrast (ICD-10-PCS; 2021-04-20)
PROC: 0TC78ZZ Extirpation of Matter from Left Ureter, Via Natural or Artificial Opening Endoscopic (ICD-10-PCS; 2021-04-23)
PROC: 0TJ Urinary System, Inspection (ICD-10-PCS; 2021-04-23)
PROC: 0T778DZ Dilation of Left Ureter with Intraluminal Device, Via Natural or Artificial Opening Endoscopic (ICD-10-PCS; 2021-04-30)
PROC: 0TP5X0Z Removal of Drainage Device from Kidney, External Approach (ICD-10-PCS; 2021-04-30)
PROC: 0T9B70Z Drainage of Bladder with Drainage Device, Via Natural or Artificial Opening (ICD-10-PCS; principal; 2021-04-30 09:20)
DX: N13.6 Pyonephrosis (principal); G93.41 Metabolic encephalopathy; E44.0 Moderate protein-calorie malnutrition; N99.522 Malfunction of incontinent external stoma of urinary tract; N17.0 Acute kidney failure with tubular necrosis; E11.21 Type 2 diabetes mellitus with diabetic nephropathy; D63.8 Anemia in other chronic diseases classified elsewhere; E11.65 Type 2 diabetes mellitus with hyperglycemia; R41.0 Disorientation, unspecified; E11.22 Type 2 diabetes mellitus with diabetic chronic kidney disease; N18.31 Chronic kidney disease, stage 3a; N40.0 Benign prostatic hyperplasia without lower urinary tract symptoms; E78.5 Hyperlipidemia, unspecified; Z68.23 Body mass index [BMI] 23.0-23.9, adult; Z87.442 Personal history of urinary calculi; Z20.822 Contact with and (suspected) exposure to COVID-19
CPT/HCPCS: 36415; 71045; 74018; 74176; 75984; 76001; 76775; 77002; 80048; 80053; 81001; 82150; 82962; 83605; 83690; 83735; 84154; 84443; 84484; 85025; 85049; 85610; 85730; 87040; 87086; 87088; 87426; 93005; 96365; 96375; 97110; 97116; 97530; A4223; C1729; G0378; J0690; J0696; J1450; J1815; J2250; J2405; J2704; J3490

== ENCOUNTER 2021-05-12 21:03 | Emergency (ER) | payer OTHER ==
[~2021-05-12] VITALS: Ht 182.9 cm; Wt 81.6 kg
[~2021-05-12 21:03] MED LIST changes: +AMLO-496 PO; -ASPI-543 PO; -ATEN-60 PO; +DOCU1CAP46 PO; -GLIP5TAB12 PO; -METF-370 PO; -SITA100T7 PO; +TAM04C PO; +TAMS1CAP25 PO
[2021-05-12] MEDS ORDERED: SODIUM CHLORIDE 0.9% 1,000 ML IV ONE (22:00)
[2021-05-12 22:37] LABS: Basophils # (auto) 0.1 10 ^3/uL (0-0.2); Basophils % (auto) 1.5 % (0.0-2.0); Eosinophils # (auto) 0.1 10 ^3/uL (0-0.8); Eosinophils % (auto) 0.9 % (0.0-7.0); Hemoglobin 10.2 g/dL (13.5-17.5); Lymphocytes # (auto) 0.8 10 ^3/uL (0.4-5.4); Lymphocytes % (auto) 8.9 % (10.0-50.0); Mean Corpuscular Hemoglobin 29.7 pg (28.0-32.0); Mean Corpuscular Hgb Conc. 33.9 g/dL (32.0-36.0); Mean Corpuscular Volume 87.6 fL (80.0-100.0); Monocytes # (auto) 0.6 10 ^3/uL (0-1.3); Monocytes % (auto) 7.5 % (0.0-12.0); Neutrophils # (auto) 6.9 10 ^3/uL (1.6-8.6); Neutrophils % (auto) 81.2 % (37.0-80.0); Red Blood Cells 3.43 10^6/uL (4.5-5.90); Red Cell Distribution Width 14.3 % (11.8-14.3); White Blood Cell 8.6 10^3/uL (4.4-10.8)
[2021-05-12 22:45] LABS: Urine Bacteria FEW /hpf (None Seen); Urine Blood TRACE /uL (Negative); Urine Specific Gravity 1.016 (1.001-1.035); Urine WBC 307 /hpf (0 - 3); Urine WBC Clumps PRESENT /hpf (None Seen)
[2021-05-12 22:57] LABS: Albumin 2.8 g/dL (3.4-5.0); Calcium 8.6 mg/dL (8.5-10.1); Potassium 3.8 mmol/L (3.5-5.1)
[2021-05-12 23:00] LABS: Bilirubin, Total 0.7 mg/dL (0.2-1.0); Total Protein 7.7 g/dL (6.4-8.2)
[2021-05-13] MEDS ORDERED: DICYCLOMINE HCL (10MG/ML) 2 ML AMPULE IM ONE (02:00)
[2021-05-13] MEDS ORDERED: cefTRIAXone 1GM/50ML D5W 50 ML IV ONE (02:30)
[2021-05-13 04:00] VITALS: BP 157/79
== END 2021-05-13 04:30 | disposition home or self-care (01) ==
LOC: ER 21:10
DX: K80.20 Calculus of gallbladder without cholecystitis without obstruction (principal); N39.0 Urinary tract infection, site not specified; K59.00 Constipation, unspecified; E11.9 Type 2 diabetes mellitus without complications; E78.5 Hyperlipidemia, unspecified; I10 Essential (primary) hypertension; Z87.442 Personal history of urinary calculi
CPT/HCPCS: 36415; 74176; 80053; 81001; 82962; 83605; 83690; 85025; 96361; 96365; 96372; 99285; J0500; J0696; J7030

== ENCOUNTER 2021-06-25 17:23 | Emergency (ER) | payer OTHER ==
[~2021-06-25] VITALS: Ht 182.9 cm; Wt 81.6 kg
[2021-06-25 17:27] VITALS: BP 139/73
[2021-06-25 19:04] LABS: Basophils # (auto) 0 10 ^3/uL (0-0.2); Basophils % (auto) 0.5 % (0.0-2.0); Eosinophils # (auto) 0.1 10 ^3/uL (0-0.8); Eosinophils % (auto) 1.3 % (0.0-7.0); Hematocrit 33.2 % (41.0-53.0); Hemoglobin 11.2 g/dL (13.5-17.5); Lymphocytes % (auto) 12.6 % (10.0-50.0); Mean Corpuscular Hemoglobin 29.8 pg (28.0-32.0); Mean Corpuscular Hgb Conc. 33.8 g/dL (32.0-36.0); Mean Corpuscular Volume 88.1 fL (80.0-100.0); Monocytes # (auto) 0.7 10 ^3/uL (0-1.3); Neutrophils # (auto) 6.1 10 ^3/uL (1.6-8.6); Neutrophils % (auto) 76.6 % (37.0-80.0); Red Blood Cells 3.77 10^6/uL (4.5-5.90); Red Cell Distribution Width 16.2 % (11.8-14.3); White Blood Cell 7.9 10^3/uL (4.4-10.8)
[2021-06-25 19:21] LABS: Albumin 3.6 g/dL (3.4-5.0); Anion Gap 9 (5-15); Blood Urea Nitrogen 24 mg/dL (7-18); Calcium 9.3 mg/dL (8.5-10.1); Carbon Dioxide 23 mmol/L (21-32); Chloride 106 mmol/L (98-107); Glucose 147 mg/dL (74-106); Potassium 3.8 mmol/L (3.5-5.1); Sodium 138 mmol/L (136-145)
[2021-06-25 19:27] LABS: Alanine Aminotransferase 98 U/L (16-61); Alkaline Phosphatase 144 U/L (45-117); Aspartate Aminotransferase 167 U/L (15-37); BUN/Creatinine Ratio 12.6; Bilirubin, Total 3.4 mg/dL (0.2-1.0); GFR African American 45 mL/min; GFR Non-African American 37 mL/min; Total Protein 8.4 g/dL (6.4-8.2)
== END 2021-06-25 18:44 | disposition left against medical advice (07) ==
LOC: ER 17:23
DX: E11.65 Type 2 diabetes mellitus with hyperglycemia (principal); E78.5 Hyperlipidemia, unspecified; I10 Essential (primary) hypertension; Z87.442 Personal history of urinary calculi
CPT/HCPCS: 36415; 80053; 81001; 84484; 85025; 93005

== ENCOUNTER 2021-11-21 13:09 | Inpatient (IN) | payer OTHER ==
[~2021-11-21] VITALS: Ht 172.7 cm; Wt 82.0 kg
[2021-11-21] MEDS ORDERED: ASPirin 81 mg TAB PO ONE (14:45)
[2021-11-21 18:19] LABS: Basophils # (auto) 0.1 10 ^3/uL (0-0.2); Basophils % (auto) 1.5 % (0.0-2.0); Eosinophils # (auto) 0 10 ^3/uL (0-0.8); Eosinophils % (auto) 1.2 % (0.0-7.0); Hematocrit 38.3 % (41.0-53.0); Lymphocytes # (auto) 0.5 10 ^3/uL (0.4-5.4); Lymphocytes % (auto) 13.1 % (10.0-50.0); Mean Corpuscular Hemoglobin 29.7 pg (28.0-32.0); Mean Corpuscular Volume 87.2 fL (80.0-100.0); Monocytes # (auto) 0.5 10 ^3/uL (0-1.3); Neutrophils # (auto) 2.5 10 ^3/uL (1.6-8.6); Neutrophils % (auto) 71.2 % (37.0-80.0); Nucleated Red Blood Cells % 0.3 %; Red Blood Cells 4.39 10^6/uL (4.5-5.90); Red Cell Distribution Width 13.9 % (11.8-14.3); White Blood Cell 3.5 10^3/uL (4.4-10.8)
[2021-11-21 18:40] LABS: Calcium 9.1 mg/dL (8.5-10.1); Potassium 4.6 mmol/L (3.5-5.1)
[2021-11-21 19:08] LABS: Albumin 3.6 g/dL (3.4-5.0); BUN/Creatinine Ratio 16.4; Bilirubin, Total 0.6 mg/dL (0.2-1.0); Total Protein 7.2 g/dL (6.4-8.2)
[2021-11-21] MEDS ORDERED: cefTRIAXone 1GM/50ML D5W 50 ML IV ONE (19:30)
[2021-11-21] MEDS ORDERED: LACTATED RINGER'S 1,000 ML IV ONE (19:30)
[2021-11-21] MEDS ORDERED: DOCUSATE SOD 100 MG CAP PO PRN (21:45)
[2021-11-21] MEDS ORDERED: ONDANSETRON HCL 4 MG/2 ML VIAL IV PRN (21:45)
[2021-11-21] MEDS ORDERED: HYDROcodone-ACET 5/325MG TAB PO PRN (21:45)
[2021-11-21] MEDS ORDERED: DEXTROSE (50%) 50ML SYRG IV PRN (21:45)
[2021-11-21] MEDS ORDERED: SODIUM CHLORIDE 0.9% 1,000 ML IV SCH (21:45)
[2021-11-21] MEDS ORDERED: ACETAMINOPHEN 325 MG TAB PO PRN (21:45)
[2021-11-21] MEDS: HEPARIN SODIUM (PORCINE) 5000 UNITS/ML 1ML VIAL SC SCH (22:00)
[2021-11-21] MEDS: ASCORBIC ACID 500 MG TAB PO SCH (22:00)
[2021-11-21 23:04] LABS: Urine Bacteria FEW /hpf (None Seen); Urine Blood 1+ /uL (Negative); Urine Budding Yeast MANY /hpf (None Seen); Urine Hyaline Cast FEW /lpf (0 - 2); Urine Specific Gravity 1.018 (1.001-1.035); Urine WBC 208 /hpf (0 - 3); Urine WBC Clumps PRESENT /hpf (None Seen)
[2021-11-21] MEDS: INSULIN LANTUS (GLARGINE) 1 /0.01ml (100units/ml) SC SCH (23:20)
[2021-11-22] MEDS ORDERED: MORPHINE SULFATE INJECTION 2 MG/ML SYRG IV PRN
[2021-11-22] MEDS ORDERED: NITROGLYCERIN 0.4 MG SL TAB SL PRN
[2021-11-22] MEDS: ACCU-CHEK COMFORT CURVE STRIP VI SCH ×7 (00:10→23:25)
[2021-11-22] MEDS: InsuLIN REG 1unit/0.01ml Soln (100units/ml) SC SCH ×7 (00:25→23:26)
[2021-11-22] MEDS ORDERED: LORazepam 2MG/ML-1ML VIAL IV ONE (01:15)
[2021-11-22 02:45] VITALS: BP 149/85
[2021-11-22 04:36] VITALS: BP 137/76
[2021-11-22 06:47] LABS: Basophils # (auto) 0 10 ^3/uL (0-0.2); Basophils % (auto) 1.1 % (0.0-2.0); Eosinophils # (auto) 0 10 ^3/uL (0-0.8); Hematocrit 32.7 % (41.0-53.0); Hemoglobin 11.4 g/dL (13.5-17.5); Lymphocytes # (auto) 0.9 10 ^3/uL (0.4-5.4); Mean Corpuscular Hemoglobin 29.8 pg (28.0-32.0); Mean Corpuscular Hgb Conc. 34.9 g/dL (32.0-36.0); Mean Corpuscular Volume 85.4 fL (80.0-100.0); Monocytes # (auto) 0.4 10 ^3/uL (0-1.3); Monocytes % (auto) 12.5 % (0.0-12.0); Neutrophils # (auto) 1.9 10 ^3/uL (1.6-8.6); Neutrophils % (auto) 57.4 % (37.0-80.0); Nucleated Red Blood Cells % 0.1 %; Red Blood Cells 3.84 10^6/uL (4.5-5.90); Red Cell Distribution Width 13.6 % (11.8-14.3); White Blood Cell 3.3 10^3/uL (4.4-10.8)
[2021-11-22] MEDS: INSULIN LANTUS (GLARGINE) 1 /0.01ml (100units/ml) SC SCH ×2 (06:51→22:43)
[2021-11-22 06:53] LABS: Potassium 3.8 mmol/L (3.5-5.1)
[2021-11-22 07:00] LABS: Albumin 2.9 g/dL (3.4-5.0); BUN/Creatinine Ratio 17.8; Bilirubin, Total 0.3 mg/dL (0.2-1.0); Calcium 8.5 mg/dL (8.5-10.1); Total Protein 5.9 g/dL (6.4-8.2)
[2021-11-22] MEDS: FAMOTIDINE (10MG/ML) 2ML VL IV SCH (07:55)
[2021-11-22] MEDS: MULTIPLE VITAMIN TAB PO SCH (07:56)
[2021-11-22] MEDS: ZINC SULFATE 220mg CAP or TAB PO SCH (07:56)
[2021-11-22] MEDS: HEPARIN SODIUM (PORCINE) 5000 UNITS/ML 1ML VIAL SC SCH ×2 (07:57→22:42)
[2021-11-22] MEDS: ASCORBIC ACID 500 MG TAB PO SCH ×2 (07:57→22:41)
[2021-11-22 09:00] VITALS: BP 108/60
[2021-11-22 13:00] VITALS: BP 147/82
[2021-11-22] MEDS: SODIUM CHLORIDE 0.9% 1,000 ML IV SCH ×2 (15:40→21:30)
[2021-11-22 17:00] VITALS: BP 142/84
[2021-11-22] MEDS: TAMSULOSIN HYDROCHLORIDE 0.4 MG CAP PO SCH (17:09)
[2021-11-22 22:00] VITALS: BP 132/76
[2021-11-23] MEDS: SODIUM CHLORIDE 0.9% 1,000 ML IV SCH ×2 (01:03→18:25)
[2021-11-23] MEDS: ACCU-CHEK COMFORT CURVE STRIP VI SCH ×4 (03:20→18:25)
[2021-11-23] MEDS: InsuLIN REG 1unit/0.01ml Soln (100units/ml) SC SCH ×4 (03:20→18:26)
[2021-11-23 05:00] VITALS: BP 142/84
[2021-11-23 05:48] LABS: Basophils # (auto) 0 10 ^3/uL (0-0.2); Eosinophils # (auto) 0.1 10 ^3/uL (0-0.8); Eosinophils % (auto) 1.8 % (0.0-7.0); Hematocrit 31.4 % (41.0-53.0); Hemoglobin 10.8 g/dL (13.5-17.5); Lymphocytes # (auto) 1.1 10 ^3/uL (0.4-5.4); Lymphocytes % (auto) 32.7 % (10.0-50.0); Mean Corpuscular Hemoglobin 29.6 pg (28.0-32.0); Mean Corpuscular Hgb Conc. 34.4 g/dL (32.0-36.0); Mean Corpuscular Volume 86.1 fL (80.0-100.0); Monocytes # (auto) 0.4 10 ^3/uL (0-1.3); Monocytes % (auto) 11.7 % (0.0-12.0); Neutrophils # (auto) 1.7 10 ^3/uL (1.6-8.6); Neutrophils % (auto) 52.8 % (37.0-80.0); Nucleated Red Blood Cells % 0.2 %; Red Blood Cells 3.65 10^6/uL (4.5-5.90); White Blood Cell 3.3 10^3/uL (4.4-10.8)
[2021-11-23 06:01] LABS: Albumin 2.7 g/dL (3.4-5.0); Calcium 8.1 mg/dL (8.5-10.1); Potassium 3.9 mmol/L (3.5-5.1)
[2021-11-23 06:04] LABS: BUN/Creatinine Ratio 17.9; Bilirubin, Total 0.3 mg/dL (0.2-1.0); Total Protein 5.5 g/dL (6.4-8.2)
[2021-11-23] MEDS: INSULIN LANTUS (GLARGINE) 1 /0.01ml (100units/ml) SC SCH (06:48)
[2021-11-23 09:00] VITALS: BP 168/88
[2021-11-23] MEDS: ZINC SULFATE 220mg CAP or TAB PO SCH (09:11)
[2021-11-23] MEDS: FAMOTIDINE (10MG/ML) 2ML VL IV SCH (09:11)
[2021-11-23] MEDS: MULTIPLE VITAMIN TAB PO SCH (09:12)
[2021-11-23] MEDS: ASCORBIC ACID 500 MG TAB PO SCH (09:12)
[2021-11-23] MEDS: HEPARIN SODIUM (PORCINE) 5000 UNITS/ML 1ML VIAL SC SCH (09:22)
[2021-11-23 13:00] VITALS: BP 140/77
[2021-11-23] MEDS ORDERED: ASCO500T11 PO (15:50)
[2021-11-23] MEDS ORDERED: CHOL20007 OR (15:50)
[2021-11-23] MEDS ORDERED: ZINC220C10 PO (15:50)
[2021-11-23 17:00] VITALS: BP 143/58
[2021-11-23] MEDS: TAMSULOSIN HYDROCHLORIDE 0.4 MG CAP PO SCH (18:25)
== END 2021-11-23 19:16 | disposition home or self-care (01) | DRG 178 ==
LOC: EDUNIT# 13:09 → ER 13:09 → EDBD 13:09 → OVERFLOW 23:47 → EAST 11-22 01:50
PROVIDERS: ADMIT Nurse Practitioner Family; ATTEND Internal Medicine
DX: U07.1 COVID-19 (principal); E87.3 Alkalosis; N17.9 Acute kidney failure, unspecified; E87.1 Hypo-osmolality and hyponatremia; E11.65 Type 2 diabetes mellitus with hyperglycemia; D72.819 Decreased white blood cell count, unspecified; E11.22 Type 2 diabetes mellitus with diabetic chronic kidney disease; E78.5 Hyperlipidemia, unspecified; I12.9 Hypertensive chronic kidney disease with stage 1 through stage 4 chronic kidney disease, or unspecified chronic kidney disease; N18.9 Chronic kidney disease, unspecified; Z87.442 Personal history of urinary calculi
CPT/HCPCS: 36415; 36600; 70450; 71045; 80053; 81001; 82010; 82805; 82962; 83036; 83880; 84484; 85025; 87040; 87077; 87086; 87088; 87186; 87426; 93005; 96361; 96365; 96375; G0378; J0696; J1815; J3490

== ENCOUNTER 2022-03-09 05:58 | Inpatient (IN) | payer OTHER ==
[~2022-03-09] VITALS: Ht 172.7 cm; Wt 82.4 kg
[~2022-03-09 05:58] MED LIST changes: +ASCO500T11 PO; +CHOL20007 OR; +ZINC220C10 PO
[2022-03-09] MEDS ORDERED: SODIUM CHLORIDE 0.9% 1,000 ML IV ONE ×2 (06:45)
[2022-03-09 07:04] LABS: Urine Bacteria None Seen /hpf (None Seen)
[2022-03-09 07:50] LABS: Basophils # (auto) 0.1 10 ^3/uL (0-0.2); Basophils % (auto) 1.1 % (0.0-2.0); Eosinophils # (auto) 0.3 10 ^3/uL (0-0.8); Eosinophils % (auto) 5.3 % (0.0-7.0); Hematocrit 30.8 % (41.0-53.0); Hemoglobin 10.6 g/dL (13.5-17.5); Lymphocytes # (auto) 1.3 10 ^3/uL (0.4-5.4); Lymphocytes % (auto) 24.2 % (10.0-50.0); Mean Corpuscular Hgb Conc. 34.3 g/dL (32.0-36.0); Mean Corpuscular Volume 87.4 fL (80.0-100.0); Monocytes # (auto) 0.4 10 ^3/uL (0-1.3); Monocytes % (auto) 7.1 % (0.0-12.0); Neutrophils # (auto) 3.4 10 ^3/uL (1.6-8.6); Neutrophils % (auto) 62.3 % (37.0-80.0); Red Blood Cells 3.52 10^6/uL (4.5-5.90); Red Cell Distribution Width 14.6 % (11.8-14.3); White Blood Cell 5.5 10^3/uL (4.4-10.8)
[2022-03-09 08:06] LABS: Calcium 9.1 mg/dL (8.5-10.1); Potassium 3.6 mmol/L (3.5-5.1)
[2022-03-09 08:12] LABS: Albumin 3.6 g/dL (3.4-5.0); BUN/Creatinine Ratio 16.9; Bilirubin, Total 0.3 mg/dL (0.2-1.0); Total Protein 7.4 g/dL (6.4-8.2)
[2022-03-09 08:14] LABS: Urine Blood 1+ /uL (Negative); Urine Specific Gravity 1.015 (1.001-1.035)
[2022-03-09 08:18] LABS: Urine WBC TNTC /hpf (0 - 3)
[2022-03-09] MEDS ORDERED: DEXTROSE (50%) 50ML SYRG IV PRN (10:30)
[2022-03-09] MEDS ORDERED: NITROGLYCERIN 0.4 MG SL TAB SL PRN (10:30)
[2022-03-09] MEDS ORDERED: cefTRIAXone 1GM/50ML D5W 50 ML IV ONE ×2 (10:30→10:45)
[2022-03-09] MEDS ORDERED: MORPHINE SULFATE INJECTION 2 MG/ML SYRG IV PRN ×2 (10:30→12:00)
[2022-03-09] MEDS: InsuLIN REG 1unit/0.01ml Soln (100units/ml) SC SCH ×3 (11:16→22:20)
[2022-03-09] MEDS: ACCU-CHEK COMFORT CURVE STRIP VI SCH ×3 (11:33→22:20)
[2022-03-09] MEDS ORDERED: HYDROcodone-ACET 5/325MG TAB PO PRN (12:00)
[2022-03-09] MEDS ORDERED: ACETAMINOPHEN 325 MG TAB PO PRN (12:00)
[2022-03-09] MEDS ORDERED: LORazepam 0.5 MG TAB PO PRN (12:00)
[2022-03-09] MEDS ORDERED: ONDANSETRON HCL 4 MG/2 ML VIAL IV PRN (12:00)
[2022-03-09] MEDS ORDERED: PANTOPRAZOLE 40 MG/10 ML VIAL INJ IV ONE (12:00)
[2022-03-09] MEDS ORDERED: NIFEdipine ER 30 MG TAB PO ONE (12:00)
[2022-03-09 12:29] LABS: INR 1.1 (0.9-1.15); Partial Thromboplastin Time 27.9 sec (23.6-33.0)
[2022-03-09 12:29] LABS: Magnesium 2.2 mg/dL (1.6-2.6); Phosphorus 3.4 mg/dL (2.5-4.90)
[2022-03-09] MEDS ORDERED: LORazepam 2MG/ML-1ML VIAL IV PRN (12:45)
[2022-03-09] MEDS ORDERED: HALOPERIDOL LACTATE 5 MG/ML INJ VIAL IM PRN (12:45)
[2022-03-09 13:31] LABS: Folate (Folic Acid) 23.18 ng/mL (5.38-24)
[2022-03-09 14:51] VITALS: BP 110/91
[2022-03-09] MEDS: QUEtiapine FUMARATE 25 MG TAB PO SCH ×2 (16:24→21:40)
[2022-03-09] MEDS: SODIUM CHLORIDE 0.9% 1,000 ML IV SCH (16:25)
[2022-03-09] MEDS: TAMSULOSIN HYDROCHLORIDE 0.4 MG CAP PO SCH (17:59)
[2022-03-09] MEDS: ATORVASTATIN 20 MG TAB PO SCH (21:40)
[2022-03-09 22:00] VITALS: BP 125/62
[2022-03-10] MEDS: SODIUM CHLORIDE 0.9% 1,000 ML IV SCH ×2 (03:10→08:48)
[2022-03-10 05:00] VITALS: BP 125/65
[2022-03-10 06:21] LABS: INR 1.1 (0.9-1.15); Partial Thromboplastin Time 26.6 sec (23.6-33.0)
[2022-03-10 06:22] LABS: Potassium 4.1 mmol/L (3.5-5.1)
[2022-03-10 06:26] LABS: Basophils # (auto) 0.1 10 ^3/uL (0-0.2); Eosinophils # (auto) 0.3 10 ^3/uL (0-0.8); Eosinophils % (auto) 4.5 % (0.0-7.0); Hematocrit 30.4 % (41.0-53.0); Hemoglobin 10.3 g/dL (13.5-17.5); Lymphocytes # (auto) 1.4 10 ^3/uL (0.4-5.4); Lymphocytes % (auto) 23.5 % (10.0-50.0); Mean Corpuscular Hemoglobin 29.6 pg (28.0-32.0); Mean Corpuscular Hgb Conc. 33.9 g/dL (32.0-36.0); Mean Corpuscular Volume 87.3 fL (80.0-100.0); Monocytes # (auto) 0.4 10 ^3/uL (0-1.3); Monocytes % (auto) 6.4 % (0.0-12.0); Neutrophils # (auto) 3.9 10 ^3/uL (1.6-8.6); Neutrophils % (auto) 64.6 % (37.0-80.0); Red Blood Cells 3.48 10^6/uL (4.5-5.90); Red Cell Distribution Width 14.7 % (11.8-14.3)
[2022-03-10 06:48] LABS: Albumin 3.5 g/dL (3.4-5.0); BUN/Creatinine Ratio 16.4; Bilirubin, Total 0.5 mg/dL (0.2-1.0); CRP High Sensitivity 0.35 mg/dL (< 0.3); Calcium 9.1 mg/dL (8.5-10.1); Magnesium 2.5 mg/dL (1.6-2.6); Phosphorus 3.4 mg/dL (2.5-4.90); Total Protein 7.5 g/dL (6.4-8.2); Uric Acid 8.9 mg/dL (3.5-7.2)
[2022-03-10] MEDS: InsuLIN REG 1unit/0.01ml Soln (100units/ml) SC SCH ×4 (07:04→20:56)
[2022-03-10] MEDS: ACCU-CHEK COMFORT CURVE STRIP VI SCH ×4 (07:05→20:57)
[2022-03-10] MEDS: QUEtiapine FUMARATE 25 MG TAB PO SCH ×3 (07:05→20:47)
[2022-03-10 08:00] VITALS: BP 126/83
[2022-03-10 09:11] VITALS: BP 126/83
[2022-03-10] MEDS: cefTRIAXone 1GM/50ML D5W 50 ML IV SCH (09:51)
[2022-03-10] MEDS: ENOXAPARIN SOD 30 MG/0.3 ML SYRINGE SC SCH (09:52)
[2022-03-10] MEDS: ASPirin 81 mg TAB PO SCH (09:52)
[2022-03-10] MEDS: NIFEdipine ER 30 MG TAB PO SCH (09:54)
[2022-03-10] MEDS ORDERED: ENOXAPARIN SOD 40 MG/0.4 ML SYRINGE SC SCH (10:00)
[2022-03-10] MEDS ORDERED: PANTOPRAZOLE 40 MG/10 ML VIAL INJ IV SCH (10:00)
[2022-03-10 13:00] VITALS: BP 126/78
[2022-03-10 16:58] VITALS: BP 120/64
[2022-03-10] MEDS: TAMSULOSIN HYDROCHLORIDE 0.4 MG CAP PO SCH (17:27)
[2022-03-10] MEDS: ATORVASTATIN 20 MG TAB PO SCH (20:47)
[2022-03-10 22:00] VITALS: BP 137/71
[2022-03-11 05:00] VITALS: BP 142/71
[2022-03-11 05:16] LABS: Basophils # (auto) 0.1 10 ^3/uL (0-0.2); Basophils % (auto) 1.2 % (0.0-2.0); Eosinophils # (auto) 0.3 10 ^3/uL (0-0.8); Hematocrit 26.9 % (41.0-53.0); Hemoglobin 9.4 g/dL (13.5-17.5); Lymphocytes # (auto) 1.4 10 ^3/uL (0.4-5.4); Lymphocytes % (auto) 26.3 % (10.0-50.0); Mean Corpuscular Hemoglobin 30.6 pg (28.0-32.0); Mean Corpuscular Hgb Conc. 35.1 g/dL (32.0-36.0); Mean Corpuscular Volume 87.1 fL (80.0-100.0); Monocytes # (auto) 0.4 10 ^3/uL (0-1.3); Monocytes % (auto) 7.1 % (0.0-12.0); Neutrophils # (auto) 3.3 10 ^3/uL (1.6-8.6); Neutrophils % (auto) 60.4 % (37.0-80.0); Nucleated Red Blood Cells % 0.1 %; Red Blood Cells 3.08 10^6/uL (4.5-5.90); Red Cell Distribution Width 14.6 % (11.8-14.3); White Blood Cell 5.5 10^3/uL (4.4-10.8)
[2022-03-11 05:39] LABS: BUN/Creatinine Ratio 16.1; Calcium 8.5 mg/dL (8.5-10.1); Potassium 3.8 mmol/L (3.5-5.1)
[2022-03-11] MEDS: QUEtiapine FUMARATE 25 MG TAB PO SCH ×3 (06:27→21:03)
[2022-03-11] MEDS: InsuLIN REG 1unit/0.01ml Soln (100units/ml) SC SCH ×4 (06:31→21:23)
[2022-03-11] MEDS: ACCU-CHEK COMFORT CURVE STRIP VI SCH ×4 (06:31→21:24)
[2022-03-11 08:00] VITALS: BP 108/66
[2022-03-11 09:00] VITALS: BP 108/66
[2022-03-11] MEDS: ASPirin 81 mg TAB PO SCH (09:36)
[2022-03-11] MEDS: cefTRIAXone 1GM/50ML D5W 50 ML IV SCH (09:36)
[2022-03-11] MEDS: ENOXAPARIN SOD 30 MG/0.3 ML SYRINGE SC SCH (09:37)
[2022-03-11] MEDS: NIFEdipine ER 30 MG TAB PO SCH (09:37)
[2022-03-11 13:00] VITALS: BP 146/74
[2022-03-11 17:00] VITALS: BP 147/71
[2022-03-11] MEDS: TAMSULOSIN HYDROCHLORIDE 0.4 MG CAP PO SCH (17:31)
[2022-03-11] MEDS: DONEPEZIL HYDROCHLORIDE 5 MG TAB PO SCH (21:03)
[2022-03-11] MEDS: ATORVASTATIN 20 MG TAB PO SCH (21:03)
[2022-03-11 22:00] VITALS: BP 145/76
[2022-03-12 05:00] VITALS: BP 152/73
[2022-03-12] MEDS: QUEtiapine FUMARATE 25 MG TAB PO SCH ×3 (05:49→21:39)
[2022-03-12] MEDS: InsuLIN REG 1unit/0.01ml Soln (100units/ml) SC SCH ×4 (05:51→21:46)
[2022-03-12 05:52] LABS: BUN/Creatinine Ratio 16.2; Potassium 4.1 mmol/L (3.5-5.1)
[2022-03-12] MEDS: ACCU-CHEK COMFORT CURVE STRIP VI SCH ×4 (05:52→21:39)
[2022-03-12 09:00] VITALS: BP 159/77
[2022-03-12] MEDS: cefTRIAXone 1GM/50ML D5W 50 ML IV SCH (10:00)
[2022-03-12] MEDS: NIFEdipine ER 30 MG TAB PO SCH (10:00)
[2022-03-12] MEDS: ENOXAPARIN SOD 30 MG/0.3 ML SYRINGE SC SCH (10:01)
[2022-03-12 13:00] VITALS: BP 148/74
[2022-03-12 16:32] VITALS: BP 122/78
[2022-03-12] MEDS: TAMSULOSIN HYDROCHLORIDE 0.4 MG CAP PO SCH (17:32)
[2022-03-12] MEDS: DONEPEZIL HYDROCHLORIDE 5 MG TAB PO SCH (21:38)
[2022-03-12] MEDS: ATORVASTATIN 20 MG TAB PO SCH (21:39)
[2022-03-12 22:00] VITALS: BP 139/71
[2022-03-13 05:00] VITALS: BP 154/86
[2022-03-13 05:59] LABS: BUN/Creatinine Ratio 18.5; Calcium 8.7 mg/dL (8.5-10.1); Potassium 3.8 mmol/L (3.5-5.1)
[2022-03-13] MEDS: ACCU-CHEK COMFORT CURVE STRIP VI SCH ×4 (06:06→21:16)
[2022-03-13] MEDS: QUEtiapine FUMARATE 25 MG TAB PO SCH ×3 (06:06→21:15)
[2022-03-13] MEDS: InsuLIN REG 1unit/0.01ml Soln (100units/ml) SC SCH ×4 (06:18→21:31)
[2022-03-13 07:43] VITALS: BP 125/72
[2022-03-13 08:00] VITALS: BP 138/80
[2022-03-13] MEDS: ENOXAPARIN SOD 30 MG/0.3 ML SYRINGE SC SCH (09:04)
[2022-03-13] MEDS: cefTRIAXone 1GM/50ML D5W 50 ML IV SCH (09:04)
[2022-03-13] MEDS: NIFEdipine ER 30 MG TAB PO SCH (09:04)
[2022-03-13 13:00] VITALS: BP 140/69
[2022-03-13 16:23] VITALS: BP 132/71
[2022-03-13] MEDS: TAMSULOSIN HYDROCHLORIDE 0.4 MG CAP PO SCH (17:32)
[2022-03-13] MEDS: ATORVASTATIN 20 MG TAB PO SCH (21:15)
[2022-03-13] MEDS: DONEPEZIL HYDROCHLORIDE 5 MG TAB PO SCH (21:15)
[2022-03-13 21:56] VITALS: BP 147/81
[2022-03-14 05:04] VITALS: BP 153/81
[2022-03-14] MEDS: ACCU-CHEK COMFORT CURVE STRIP VI SCH ×4 (06:04→22:18)
[2022-03-14] MEDS: InsuLIN REG 1unit/0.01ml Soln (100units/ml) SC SCH ×4 (06:05→22:22)
[2022-03-14] MEDS: hydrALAZINE HCL 20 MG/ML VL IV PRN (06:11)
[2022-03-14] MEDS: QUEtiapine FUMARATE 25 MG TAB PO SCH ×3 (06:11→22:18)
[2022-03-14 08:30] VITALS: BP 145/73
[2022-03-14 08:45] VITALS: BP 145/73
[2022-03-14] MEDS: cefTRIAXone 1GM/50ML D5W 50 ML IV SCH (09:21)
[2022-03-14] MEDS: NIFEdipine ER 30 MG TAB PO SCH (09:22)
[2022-03-14] MEDS: ENOXAPARIN SOD 30 MG/0.3 ML SYRINGE SC SCH (09:23)
[2022-03-14] MEDS ORDERED: FLUCONAZOLE 100 MG TAB PO ONE (11:30)
[2022-03-14 12:00] VITALS: BP 144/79
[2022-03-14 17:00] VITALS: BP 149/74
[2022-03-14] MEDS: TAMSULOSIN HYDROCHLORIDE 0.4 MG CAP PO SCH (18:43)
[2022-03-14] MEDS: DONEPEZIL HYDROCHLORIDE 5 MG TAB PO SCH (22:17)
[2022-03-14] MEDS: ATORVASTATIN 20 MG TAB PO SCH (22:17)
[2022-03-14 22:22] VITALS: BP 142/70
[2022-03-15 05:00] VITALS: BP 158/81
[2022-03-15 05:33] LABS: Basophils # (auto) 0.1 10 ^3/uL (0-0.2); Basophils % (auto) 1.4 % (0.0-2.0); Eosinophils # (auto) 0.3 10 ^3/uL (0-0.8); Eosinophils % (auto) 5.5 % (0.0-7.0); Hematocrit 30.4 % (41.0-53.0); Hemoglobin 10.4 g/dL (13.5-17.5); Lymphocytes # (auto) 1.4 10 ^3/uL (0.4-5.4); Lymphocytes % (auto) 27.1 % (10.0-50.0); Mean Corpuscular Hemoglobin 30.1 pg (28.0-32.0); Mean Corpuscular Hgb Conc. 34.3 g/dL (32.0-36.0); Mean Corpuscular Volume 87.8 fL (80.0-100.0); Monocytes # (auto) 0.4 10 ^3/uL (0-1.3); Monocytes % (auto) 8.1 % (0.0-12.0); Neutrophils # (auto) 2.9 10 ^3/uL (1.6-8.6); Neutrophils % (auto) 57.9 % (37.0-80.0); Nucleated Red Blood Cells % 0.1 %; Red Blood Cells 3.46 10^6/uL (4.5-5.90); Red Cell Distribution Width 14.8 % (11.8-14.3)
[2022-03-15 05:50] LABS: Potassium 4.2 mmol/L (3.5-5.1)
[2022-03-15 05:52] LABS: BUN/Creatinine Ratio 17.4
[2022-03-15] MEDS: QUEtiapine FUMARATE 25 MG TAB PO SCH ×3 (06:45→21:50)
[2022-03-15] MEDS: ACCU-CHEK COMFORT CURVE STRIP VI SCH ×4 (06:45→21:50)
[2022-03-15] MEDS: InsuLIN REG 1unit/0.01ml Soln (100units/ml) SC SCH ×4 (06:46→21:56)
[2022-03-15] MEDS: cefTRIAXone 1GM/50ML D5W 50 ML IV SCH (08:58)
[2022-03-15] MEDS: NIFEdipine ER 30 MG TAB PO SCH (08:59)
[2022-03-15 09:00] VITALS: BP 142/75
[2022-03-15] MEDS: FLUCONAZOLE 100 MG TAB PO SCH (09:00)
[2022-03-15] MEDS: ENOXAPARIN SOD 30 MG/0.3 ML SYRINGE SC SCH (09:00)
[2022-03-15 13:00] VITALS: BP 157/76
[2022-03-15 16:04] VITALS: BP 92/50
[2022-03-15] MEDS: TAMSULOSIN HYDROCHLORIDE 0.4 MG CAP PO SCH (18:02)
[2022-03-15] MEDS: ATORVASTATIN 20 MG TAB PO SCH (21:49)
[2022-03-15] MEDS: DONEPEZIL HYDROCHLORIDE 5 MG TAB PO SCH (21:49)
[2022-03-15 22:00] VITALS: BP 116/74
[2022-03-16 05:00] VITALS: BP 142/78
[2022-03-16] MEDS: ACCU-CHEK COMFORT CURVE STRIP VI SCH ×4 (06:10→22:15)
[2022-03-16] MEDS: QUEtiapine FUMARATE 25 MG TAB PO SCH ×3 (06:10→22:15)
[2022-03-16] MEDS: InsuLIN REG 1unit/0.01ml Soln (100units/ml) SC SCH ×4 (06:12→22:16)
[2022-03-16 08:30] VITALS: BP 133/77
[2022-03-16] MEDS: cefTRIAXone 1GM/50ML D5W 50 ML IV SCH (09:26)
[2022-03-16] MEDS: NIFEdipine ER 30 MG TAB PO SCH (09:27)
[2022-03-16] MEDS: ENOXAPARIN SOD 30 MG/0.3 ML SYRINGE SC SCH (09:28)
[2022-03-16] MEDS: FLUCONAZOLE 100 MG TAB PO SCH (09:28)
[2022-03-16 12:30] VITALS: BP 136/69
[2022-03-16 16:51] VITALS: BP 157/85
[2022-03-16] MEDS: TAMSULOSIN HYDROCHLORIDE 0.4 MG CAP PO SCH (18:05)
[2022-03-16 20:00] VITALS: BP 145/79
[2022-03-16 22:00] VITALS: BP 145/79
[2022-03-16] MEDS: ATORVASTATIN 20 MG TAB PO SCH (22:15)
[2022-03-16] MEDS: DONEPEZIL HYDROCHLORIDE 5 MG TAB PO SCH (22:15)
[2022-03-17 05:00] VITALS: BP 163/87
[2022-03-17] MEDS: hydrALAZINE HCL 20 MG/ML VL IV PRN (05:31)
[2022-03-17] MEDS: QUEtiapine FUMARATE 25 MG TAB PO SCH ×2 (05:31→14:31)
[2022-03-17] MEDS: ACCU-CHEK COMFORT CURVE STRIP VI SCH ×3 (06:10→17:08)
[2022-03-17] MEDS: InsuLIN REG 1unit/0.01ml Soln (100units/ml) SC SCH ×3 (06:12→18:42)
[2022-03-17 09:00] VITALS: BP 153/81
[2022-03-17] MEDS: FLUCONAZOLE 100 MG TAB PO SCH (09:29)
[2022-03-17] MEDS: cefTRIAXone 1GM/50ML D5W 50 ML IV SCH (09:30)
[2022-03-17] MEDS: ENOXAPARIN SOD 30 MG/0.3 ML SYRINGE SC SCH (09:30)
[2022-03-17] MEDS: NIFEdipine ER 30 MG TAB PO SCH (09:30)
[2022-03-17 13:00] VITALS: BP 146/76
[2022-03-17 17:00] VITALS: BP 139/88
[2022-03-17 17:53] VITALS: BP 139/88
[2022-03-17] MEDS: TAMSULOSIN HYDROCHLORIDE 0.4 MG CAP PO SCH (18:30)
== END 2022-03-17 19:56 | DRG 70 ==
LOC: EDBD 05:58 → EDUNIT# 05:58 → ER 05:58 → OVERFLOW 10:30 → EAST 13:19
PROVIDERS: ADMIT Hospitalist; ATTEND Internal Medicine Geriatric Medicine
DX: G93.41 Metabolic encephalopathy (principal); N17.0 Acute kidney failure with tubular necrosis; F02.81 Dementia in other diseases classified elsewhere, unspecified severity, with behavioral disturbance; N20.2 Calculus of kidney with calculus of ureter; N13.6 Pyonephrosis; N18.4 Chronic kidney disease, stage 4 (severe); I25.10 Atherosclerotic heart disease of native coronary artery without angina pectoris; E11.65 Type 2 diabetes mellitus with hyperglycemia; G30.9 Alzheimer's disease, unspecified; N13.9 Obstructive and reflux uropathy, unspecified; N40.0 Benign prostatic hyperplasia without lower urinary tract symptoms; E11.22 Type 2 diabetes mellitus with diabetic chronic kidney disease; Z20.822 Contact with and (suspected) exposure to COVID-19; D64.9 Anemia, unspecified; I12.9 Hypertensive chronic kidney disease with stage 1 through stage 4 chronic kidney disease, or unspecified chronic kidney disease; E78.5 Hyperlipidemia, unspecified; F41.9 Anxiety disorder, unspecified; G93.0 Cerebral cysts; E11.40 Type 2 diabetes mellitus with diabetic neuropathy, unspecified; K59.00 Constipation, unspecified; Z75.1 Person awaiting admission to adequate facility elsewhere; Z79.82 Long term (current) use of aspirin; Z79.899 Other long term (current) drug therapy; Z83.3 Family history of diabetes mellitus; Z86.73 Personal history of transient ischemic attack (TIA), and cerebral infarction without residual deficits; Z87.442 Personal history of urinary calculi; Z87.891 Personal history of nicotine dependence; Z91.19 Patient's noncompliance with other medical treatment and regimen; Z79.4 Long term (current) use of insulin
CPT/HCPCS: 36415; 70450; 70551; 74176; 76775; 80048; 80053; 80061; 81001; 82550; 82607; 82728; 82746; 82962; 83036; 83615; 83690; 83735; 83880; 83970; 84100; 84154; 84443; 84484; 84550; 85025; 85379; 85610; 85730; 86141; 87040; 87086; 87088; 93005; 93306; 93886; 95819; 96361; 96365; 97163; C9113; G0378; J0696; J1815

== ENCOUNTER 2022-07-21 23:20 | Inpatient (IN) | payer OTHER ==
[~2022-07-21] VITALS: Ht 182.9 cm; Wt 78.7 kg
[2022-07-21] MEDS ORDERED: ACETAMINOPHEN 325 MG TAB PO ONE (23:45)
[2022-07-22] MEDS ORDERED: ACETAMINOPHEN 500 MG TAB PO ONE ×2 (01:02→01:15)
[2022-07-22 01:26] LABS: Basophils # (auto) 0.1 10 ^3/uL (0-0.2); Basophils % (auto) 0.6 % (0.0-2.0); Eosinophils # (auto) 0.4 10 ^3/uL (0-0.8); Eosinophils % (auto) 4.6 % (0.0-7.0); Hematocrit 29.4 % (41.0-53.0); Hemoglobin 9.9 g/dL (13.5-17.5); Lymphocytes # (auto) 0.3 10 ^3/uL (0.4-5.4); Lymphocytes % (auto) 4.3 % (10.0-50.0); Mean Corpuscular Hemoglobin 29.7 pg (28.0-32.0); Mean Corpuscular Hgb Conc. 33.8 g/dL (32.0-36.0); Mean Corpuscular Volume 87.9 fL (80.0-100.0); Monocytes # (auto) 0.4 10 ^3/uL (0-1.3); Monocytes % (auto) 5.1 % (0.0-12.0); Neutrophils # (auto) 6.9 10 ^3/uL (1.6-8.6); Neutrophils % (auto) 85.4 % (37.0-80.0); Red Blood Cells 3.35 10^6/uL (4.5-5.90); Red Cell Distribution Width 13.8 % (11.8-14.3)
[2022-07-22] MEDS ORDERED: SODIUM CHLORIDE 0.9% 1,000 ML IV ONE (01:45)
[2022-07-22 01:49] LABS: Albumin 2.6 g/dL (3.4-5.0); Calcium 8.2 mg/dL (8.5-10.1); Potassium 4.3 mmol/L (3.5-5.1)
[2022-07-22 01:52] LABS: BUN/Creatinine Ratio 18.5
[2022-07-22 01:54] LABS: Bilirubin, Total 0.4 mg/dL (0.2-1.0); Total Protein 6.4 g/dL (6.4-8.2)
[2022-07-22 02:58] LABS: Urine Bacteria NONE SEEN /hpf (None Seen); Urine Blood 1+ /uL (Negative); Urine WBC 129 /hpf (0 - 3); Urine WBC Clumps PRESENT /hpf (None Seen)
[2022-07-22] MEDS ORDERED: cefTRIAXone 1GM/50ML D5W 50 ML IV ONE (05:15)
[2022-07-22] MEDS ORDERED: AZITHROMYCIN 250 MG TAB PO ONE (05:15)
[2022-07-22] MEDS: VANCOMYCIN 1GM/250ML 250 ML IV ONE ×2 (05:16→08:50)
[2022-07-22] MEDS ORDERED: DEXTROSE (50%) 50ML SYRG IV PRN (10:45)
[2022-07-22] MEDS: SOD CHL 0.45% 1,000 ML IV SCH ×2 (10:45→21:12)
[2022-07-22 11:03] LABS: Cholesterol 108 mg/dL (< 200)
[2022-07-22 11:05] LABS: HDL Cholesterol 35 mg/dL (40-59); LDL Cholesterol 55 mg/dL (< 100); Triglycerides 116 mg/dL (< 150)
[2022-07-22] MEDS: ACCU-CHEK COMFORT CURVE STRIP VI SCH ×3 (11:36→21:13)
[2022-07-22] MEDS: InsuLIN REG 1unit/0.01ml Soln (100units/ml) SC SCH ×3 (11:42→21:13)
[2022-07-22] MEDS: CLINDAMYCIN 600MG IV 50 ML IV SCH ×2 (14:14→21:13)
[2022-07-22] MEDS: hydrALAZINE HCL 20 MG/ML VL IV PRN (18:15)
[2022-07-22 20:57] VITALS: BP 158/83
[2022-07-22] MEDS: MORPHINE SULFATE INJ 2 MG/ml SYRG IV PRN (21:55)
[2022-07-22 22:00] VITALS: BP 179/86
[2022-07-23 05:00] VITALS: BP 154/79
[2022-07-23] MEDS: InsuLIN REG 1unit/0.01ml Soln (100units/ml) SC SCH ×4 (05:46→22:50)
[2022-07-23] MEDS: ACCU-CHEK COMFORT CURVE STRIP VI SCH ×4 (05:47→22:06)
[2022-07-23] MEDS: SOD CHL 0.45% 1,000 ML IV SCH (06:36)
[2022-07-23] MEDS: CLINDAMYCIN 600MG IV 50 ML IV SCH ×4 (06:36→22:05)
[2022-07-23 06:59] LABS: Basophils # (auto) 0.1 10 ^3/uL (0-0.2); Eosinophils # (auto) 0.8 10 ^3/uL (0-0.8); Eosinophils % (auto) 10.9 % (0.0-7.0); Hemoglobin 9.2 g/dL (13.5-17.5); Lymphocytes # (auto) 0.9 10 ^3/uL (0.4-5.4); Lymphocytes % (auto) 13.7 % (10.0-50.0); Mean Corpuscular Hemoglobin 29.8 pg (28.0-32.0); Mean Corpuscular Hgb Conc. 34.2 g/dL (32.0-36.0); Monocytes # (auto) 0.5 10 ^3/uL (0-1.3); Monocytes % (auto) 7.1 % (0.0-12.0); Neutrophils # (auto) 4.7 10 ^3/uL (1.6-8.6); Neutrophils % (auto) 67.3 % (37.0-80.0); Nucleated Red Blood Cells % 0.1 %; Red Cell Distribution Width 13.6 % (11.8-14.3); White Blood Cell 6.9 10^3/uL (4.4-10.8)
[2022-07-23 07:00] LABS: Potassium 4.2 mmol/L (3.5-5.1)
[2022-07-23 07:07] LABS: Albumin 2.4 g/dL (3.4-5.0); BUN/Creatinine Ratio 15.4; Bilirubin, Total 0.4 mg/dL (0.2-1.0); Calcium 8.3 mg/dL (8.5-10.1); Total Protein 5.5 g/dL (6.4-8.2)
[2022-07-23 09:22] VITALS: BP 174/81
[2022-07-23] MEDS: cefTRIAXone 1GM/50ML D5W 50 ML IV SCH (10:16)
[2022-07-23] MEDS: ENOXAPARIN SOD 40 MG/0.4 ML SYRINGE SC SCH (10:16)
[2022-07-23] MEDS: hydrALAZINE HCL 20 MG/ML VL IV PRN ×2 (10:19→21:13)
[2022-07-23 13:00] VITALS: BP 179/85
[2022-07-23 13:06] LABS: INR 1.14 (0.9-1.15); Partial Thromboplastin Time 38.9 sec (24.6-33.4)
[2022-07-23] MEDS: SODIUM CHLORIDE 0.9% 1,000 ML IV SCH (15:17)
[2022-07-23 17:23] VITALS: BP 158/88
[2022-07-23] MEDS ORDERED: LIDOCAINE 1% (LOCAL ANESTH.) PF 5ml SDV ID ONE (18:30)
[2022-07-23 22:00] VITALS: BP 185/85
[2022-07-23] MEDS ORDERED: DAKINS QUARTER STR 0.125% (NaHypochlorite) 473 ML TOPICAL SOL TOP SCH (22:00)
[2022-07-23] MEDS: SODIUM CHLOR 0.9% PF (SALINE LOCK) 10ML VIAL/SYR IV SCH (22:06)
[2022-07-23] MEDS: MORPHINE SULFATE INJ 2 MG/ml SYRG IV PRN (23:45)
[2022-07-24] VITALS (7 sets, daily range): BP systolic 113–182; BP diastolic 72–92
[2022-07-24] MEDS: SODIUM CHLORIDE 0.9% 1,000 ML IV SCH ×3 (00:15→22:05)
[2022-07-24] MEDS: diphenhdrAMINE HCL 50 MG/1 ML VL IV PRN ×2 (01:11→23:35)
[2022-07-24] MEDS: hydrALAZINE HCL 20 MG/ML VL IV PRN ×2 (05:01→18:33)
[2022-07-24] MEDS: CLINDAMYCIN 600MG IV 50 ML IV SCH ×3 (05:01→21:57)
[2022-07-24] MEDS: InsuLIN REG 1unit/0.01ml Soln (100units/ml) SC SCH ×4 (06:36→22:04)
[2022-07-24] MEDS: ACCU-CHEK COMFORT CURVE STRIP VI SCH ×4 (06:36→21:58)
[2022-07-24] MEDS: DAKINS QUARTER STR 0.125% (NaHypochlorite) 473 ML TOPICAL SOL TOP SCH (07:44)
[2022-07-24] MEDS: cefTRIAXone 1GM/50ML D5W 50 ML IV SCH (08:25)
[2022-07-24] MEDS: ASPirin 81 mg TAB PO SCH (08:26)
[2022-07-24] MEDS: ENOXAPARIN SOD 40 MG/0.4 ML SYRINGE SC SCH (08:26)
[2022-07-24] MEDS: SODIUM CHLOR 0.9% PF (SALINE LOCK) 10ML VIAL/SYR IV SCH ×2 (08:27→21:58)
[2022-07-24] MEDS ORDERED: TAMSULOSIN HYDROCHLORIDE 0.4 MG CAP PO SCH (18:00)
[2022-07-24] MEDS ORDERED: ATORVASTATIN 20 MG TAB PO SCH (22:00)
[2022-07-25 05:00] VITALS: BP 155/83
[2022-07-25] MEDS: CLINDAMYCIN 600MG IV 50 ML IV SCH (06:00)
[2022-07-25] MEDS: SODIUM CHLORIDE 0.9% 1,000 ML IV SCH (06:15)
[2022-07-25] MEDS: ACCU-CHEK COMFORT CURVE STRIP VI SCH ×2 (06:39→11:30)
[2022-07-25] MEDS: InsuLIN REG 1unit/0.01ml Soln (100units/ml) SC SCH ×2 (06:42→11:30)
[2022-07-25] MEDS: cefTRIAXone 1GM/50ML D5W 50 ML IV SCH (09:00)
[2022-07-25] MEDS: SODIUM CHLOR 0.9% PF (SALINE LOCK) 10ML VIAL/SYR IV SCH (10:00)
[2022-07-25] MEDS: ENOXAPARIN SOD 40 MG/0.4 ML SYRINGE SC SCH (10:31)
[2022-07-25] MEDS: ASPirin 81 mg TAB PO SCH (10:31)
[2022-07-25] MEDS ORDERED: QUET100T47 PO (10:35)
[2022-07-25] MEDS ORDERED: LORA0.5T20 PO (10:35)
[2022-07-25] MEDS ORDERED: TAM04C PO (11:02)
[2022-07-25] MEDS ORDERED: HYDR-4902 PO (11:02)
[2022-07-25] MEDS ORDERED: ASPI-498 PO (11:02)
[2022-07-25] MEDS ORDERED: ATO40T PO (11:02)
[2022-07-25] MEDS ORDERED: CLIN300C8 PO (11:02)
[2022-07-25] MEDS: DAKINS QUARTER STR 0.125% (NaHypochlorite) 473 ML TOPICAL SOL TOP SCH (11:46)
== END 2022-07-25 12:16 | disposition home health service (06) | DRG 871 ==
LOC: ER 23:20 → EDBD 23:20 → TELE 07-22 10:22 → TELE-WESTW 07-22 19:21
PROVIDERS: ADMIT Registered Nurse; ATTEND Family Medicine
PROC: 02HV33Z Insertion of Infusion Device into Superior Vena Cava, Percutaneous Approach (ICD-10-PCS; principal; 2022-07-23)
PROC: B548ZZA Ultrasonography of Superior Vena Cava, Guidance (ICD-10-PCS; 2022-07-23)
DX: A41.9 Sepsis, unspecified organism (principal); J18.9 Pneumonia, unspecified organism; L03.116 Cellulitis of left lower limb; N17.9 Acute kidney failure, unspecified; N18.4 Chronic kidney disease, stage 4 (severe); M86.171 Other acute osteomyelitis, right ankle and foot; N20.2 Calculus of kidney with calculus of ureter; N13.8 Other obstructive and reflux uropathy; L03.115 Cellulitis of right lower limb; N39.0 Urinary tract infection, site not specified; E11.621 Type 2 diabetes mellitus with foot ulcer; E11.65 Type 2 diabetes mellitus with hyperglycemia; E78.5 Hyperlipidemia, unspecified; E11.22 Type 2 diabetes mellitus with diabetic chronic kidney disease; E11.628 Type 2 diabetes mellitus with other skin complications; E11.69 Type 2 diabetes mellitus with other specified complication; F03.90 Unspecified dementia, unspecified severity, without behavioral disturbance, psychotic disturbance, mood disturbance, and anxiety; I25.10 Atherosclerotic heart disease of native coronary artery without angina pectoris; I12.9 Hypertensive chronic kidney disease with stage 1 through stage 4 chronic kidney disease, or unspecified chronic kidney disease; R33.8 Other retention of urine; R21 Rash and other nonspecific skin eruption; Z20.822 Contact with and (suspected) exposure to COVID-19; E11.51 Type 2 diabetes mellitus with diabetic peripheral angiopathy without gangrene; I70.201 Unspecified atherosclerosis of native arteries of extremities, right leg; L97.519 Non-pressure chronic ulcer of other part of right foot with unspecified severity; N40.1 Benign prostatic hyperplasia with lower urinary tract symptoms; Z53.20 Procedure and treatment not carried out because of patient's decision for unspecified reasons; Z79.4 Long term (current) use of insulin; Z79.899 Other long term (current) drug therapy; Z86.73 Personal history of transient ischemic attack (TIA), and cerebral infarction without residual deficits; Z87.442 Personal history of urinary calculi; Z87.891 Personal history of nicotine dependence
CPT/HCPCS: 36415; 36569; 71045; 73630; 73718; 74176; 80053; 80061; 81001; 82962; 83036; 83605; 83880; 84154; 84484; 85025; 85610; 85730; 87040; 87077; 87086; 87088; 87186; 87205; 93925; 93970; G0378; J0696; J1815; J3490

== ENCOUNTER 2022-08-13 15:02 | Inpatient (IN) | payer MEDICARE, OTHER ==
[~2022-08-13] VITALS: Ht 182.9 cm; Wt 88.0 kg
[~2022-08-13 15:02] MED LIST changes: +ASPI-498 PO; +ATO40T PO; +CLIN300C8 PO; +HYDR-4902 PO; +LORA0.5T20 PO; +QUET100T47 PO
[2022-08-13] MEDS ORDERED: PIPERACILLIN-TAZOB 3.375GM 100 ML IV ONE (15:45)
[2022-08-13 15:56] LABS: Basophils # (auto) 0.1 10 ^3/uL (0-0.2); Basophils % (auto) 0.7 % (0.0-2.0); Eosinophils # (auto) 0.3 10 ^3/uL (0-0.8); Hemoglobin 9.7 g/dL (13.5-17.5); Lymphocytes # (auto) 1.1 10 ^3/uL (0.4-5.4); Lymphocytes % (auto) 13.7 % (10.0-50.0); Mean Corpuscular Hemoglobin 28.7 pg (28.0-32.0); Mean Corpuscular Hgb Conc. 32.5 g/dL (32.0-36.0); Mean Corpuscular Volume 88.5 fL (80.0-100.0); Monocytes # (auto) 0.4 10 ^3/uL (0-1.3); Monocytes % (auto) 5.5 % (0.0-12.0); Neutrophils % (auto) 76.1 % (37.0-80.0); Red Blood Cells 3.39 10^6/uL (4.5-5.90); Red Cell Distribution Width 14.7 % (11.8-14.3); White Blood Cell 7.9 10^3/uL (4.4-10.8)
[2022-08-13 16:15] LABS: Albumin 2.8 g/dL (3.4-5.0); Calcium 8.2 mg/dL (8.5-10.1); Potassium 4.7 mmol/L (3.5-5.1)
[2022-08-13 16:18] LABS: INR 1.08 (0.9-1.15); Partial Thromboplastin Time 31.5 sec (24.6-33.4)
[2022-08-13 16:20] LABS: BUN/Creatinine Ratio 16.7; Bilirubin, Total 0.4 mg/dL (0.2-1.0); Total Protein 6.5 g/dL (6.4-8.2)
[2022-08-13] MEDS ORDERED: ACETAMINOPHEN 325 MG TAB PO PRN (19:45)
[2022-08-13] MEDS ORDERED: DOCUSATE SOD 100 MG CAP PO PRN (19:45)
[2022-08-13] MEDS ORDERED: DEXTROSE (50%) 50ML SYRG IV PRN (19:45)
[2022-08-13] MEDS ORDERED: ONDANSETRON HCL 4 MG/2 ML VIAL IV PRN (19:45)
[2022-08-13 20:31] LABS: Cholesterol 129 mg/dL (< 200)
[2022-08-13 20:32] LABS: % Iron Saturation 13.8 % (20-55)
[2022-08-13 20:33] LABS: HDL Cholesterol 37 mg/dL (40-59); LDL Cholesterol 72 mg/dL (< 100); Triglycerides 124 mg/dL (< 150)
[2022-08-13] MEDS: ACCU-CHEK COMFORT CURVE STRIP VI SCH (22:54)
[2022-08-13] MEDS: InsuLIN REG 1unit/0.01ml Soln (100units/ml) SC SCH (22:54)
[2022-08-13] MEDS: PIPERACILLIN-TAZOB 3.375GM 100 ML IV SCH (22:54)
[2022-08-14 04:45] LABS: Basophils # (auto) 0.1 10 ^3/uL (0-0.2); Basophils % (auto) 0.9 % (0.0-2.0); Eosinophils # (auto) 0.4 10 ^3/uL (0-0.8); Hematocrit 26.2 % (41.0-53.0); Hemoglobin 8.7 g/dL (13.5-17.5); Lymphocytes # (auto) 1.1 10 ^3/uL (0.4-5.4); Lymphocytes % (auto) 20.6 % (10.0-50.0); Mean Corpuscular Hemoglobin 29.2 pg (28.0-32.0); Mean Corpuscular Hgb Conc. 33.2 g/dL (32.0-36.0); Mean Corpuscular Volume 87.9 fL (80.0-100.0); Monocytes # (auto) 0.4 10 ^3/uL (0-1.3); Monocytes % (auto) 6.8 % (0.0-12.0); Neutrophils # (auto) 3.5 10 ^3/uL (1.6-8.6); Neutrophils % (auto) 64.7 % (37.0-80.0); Red Blood Cells 2.98 10^6/uL (4.5-5.90); Red Cell Distribution Width 14.5 % (11.8-14.3); White Blood Cell 5.5 10^3/uL (4.4-10.8)
[2022-08-14 04:59] LABS: Albumin 2.5 g/dL (3.4-5.0); Potassium 4.7 mmol/L (3.5-5.1)
[2022-08-14 05:03] LABS: BUN/Creatinine Ratio 18.5
[2022-08-14 05:05] LABS: Bilirubin, Total 0.3 mg/dL (0.2-1.0); Total Protein 5.7 g/dL (6.4-8.2)
[2022-08-14] MEDS: PIPERACILLIN-TAZOB 3.375GM 100 ML IV SCH ×3 (05:57→22:00)
[2022-08-14] MEDS: ACCU-CHEK COMFORT CURVE STRIP VI SCH ×4 (06:46→21:36)
[2022-08-14] MEDS: InsuLIN REG 1unit/0.01ml Soln (100units/ml) SC SCH ×4 (06:51→21:43)
[2022-08-14] MEDS ORDERED: ENOXAPARIN SOD 40 MG/0.4 ML SYRINGE SC SCH (10:00)
[2022-08-14] MEDS: PANTOPRAZOLE 40 MG/10 ML VIAL INJ IV SCH (11:44)
[2022-08-14] MEDS: ENOXAPARIN SOD 80 MG/0.8ML SYRINGE SC SCH (11:44)
[2022-08-14] MEDS ORDERED: VANCOMYCIN PER PHARMACY 0 MG IV SCH (12:15)
[2022-08-14] MEDS ORDERED: VANCOMYCIN 1GM/250ML 250 ML IV ONE (12:15)
[2022-08-15] VITALS (7 sets, daily range): BP systolic 129–167; BP diastolic 60–92
[2022-08-15] MEDS ORDERED: MELATONIN 5 MG TAB PO ONE (02:11)
[2022-08-15] MEDS: MORPHINE SULFATE INJ 2 MG/ml SYRG IV PRN (02:38)
[2022-08-15 05:06] LABS: Basophils # (auto) 0.1 10 ^3/uL (0-0.2); Eosinophils # (auto) 0.4 10 ^3/uL (0-0.8); Eosinophils % (auto) 5.7 % (0.0-7.0); Hematocrit 24.5 % (41.0-53.0); Hemoglobin 8.4 g/dL (13.5-17.5); Lymphocytes % (auto) 14.9 % (10.0-50.0); Mean Corpuscular Hemoglobin 29.5 pg (28.0-32.0); Mean Corpuscular Hgb Conc. 34.4 g/dL (32.0-36.0); Mean Corpuscular Volume 85.8 fL (80.0-100.0); Monocytes # (auto) 0.4 10 ^3/uL (0-1.3); Neutrophils # (auto) 4.9 10 ^3/uL (1.6-8.6); Neutrophils % (auto) 72.4 % (37.0-80.0); Nucleated Red Blood Cells % 0.1 %; Red Blood Cells 2.85 10^6/uL (4.5-5.90); Red Cell Distribution Width 14.2 % (11.8-14.3); White Blood Cell 6.7 10^3/uL (4.4-10.8)
[2022-08-15 05:09] LABS: Urine Blood 2+ /uL (Negative); Urine Budding Yeast MODERATE /hpf (None Seen); Urine Specific Gravity 1.015 (1.001-1.035); Urine WBC 1024 /hpf (0 - 3); Urine WBC Clumps PRESENT /hpf (None Seen)
[2022-08-15 05:11] LABS: Urine Bacteria FEW /hpf (None Seen)
[2022-08-15 05:18] LABS: Potassium 4.4 mmol/L (3.5-5.1)
[2022-08-15 05:21] LABS: BUN/Creatinine Ratio 15.6
[2022-08-15 05:41] LABS: Sodium Urine 99 mmol/L (40-220)
[2022-08-15 05:42] LABS: Creatinine, Urine 59 mg/dL (30.0-125.0)
[2022-08-15] MEDS: PIPERACILLIN-TAZOB 3.375GM 100 ML IV SCH ×3 (06:11→21:00)
[2022-08-15] MEDS: ACCU-CHEK COMFORT CURVE STRIP VI SCH ×4 (06:27→21:04)
[2022-08-15] MEDS: InsuLIN REG 1unit/0.01ml Soln (100units/ml) SC SCH ×4 (06:37→21:12)
[2022-08-15] MEDS: PANTOPRAZOLE 40 MG/10 ML VIAL INJ IV SCH (09:45)
[2022-08-15] MEDS: VANCOMYCIN 1GM/250ML 250 ML IV SCH (09:45)
[2022-08-15] MEDS: ENOXAPARIN SOD 80 MG/0.8ML SYRINGE SC SCH (09:46)
[2022-08-15] MEDS: SOD CHL 0.45% 1,000 ML IV SCH ×3 (11:15→13:30)
[2022-08-15] MEDS ORDERED: amLODIPine BESYLATE 5 MG TAB PO ONE (12:45)
[2022-08-15] MEDS ORDERED: ZINC SULFATE 220 MG PO SCH (12:45)
[2022-08-15] MEDS: ALPRAZolam 0.25 MG TAB PO PRN (13:30)
[2022-08-15] MEDS: TAMSULOSIN HYDROCHLORIDE 0.4 MG CAP PO SCH (17:50)
[2022-08-15] MEDS: TEMAZEPAM 15 MG CAP PO PRN (19:51)
[2022-08-15] MEDS: DOCUSATE SOD 100 MG CAP PO SCH (21:00)
[2022-08-15] MEDS: ATORVASTATIN 20 MG TAB PO SCH (21:00)
[2022-08-15] MEDS: ASCORBIC ACID 500 MG TAB PO SCH (21:01)
[2022-08-16] VITALS (7 sets, daily range): BP systolic 120–154; BP diastolic 70–85
[2022-08-16] MEDS: PIPERACILLIN-TAZOB 3.375GM 100 ML IV SCH (05:25)
[2022-08-16] MEDS: ACCU-CHEK COMFORT CURVE STRIP VI SCH ×4 (06:37→22:06)
[2022-08-16] MEDS: InsuLIN REG 1unit/0.01ml Soln (100units/ml) SC SCH ×4 (06:39→22:07)
[2022-08-16 06:48] LABS: Basophils # (auto) 0.1 10 ^3/uL (0-0.2); Basophils % (auto) 1.3 % (0.0-2.0); Eosinophils # (auto) 0.4 10 ^3/uL (0-0.8); Lymphocytes # (auto) 1.1 10 ^3/uL (0.4-5.4); Lymphocytes % (auto) 24.9 % (10.0-50.0); Mean Corpuscular Hemoglobin 29.2 pg (28.0-32.0); Mean Corpuscular Hgb Conc. 33.3 g/dL (32.0-36.0); Mean Corpuscular Volume 87.5 fL (80.0-100.0); Monocytes # (auto) 0.4 10 ^3/uL (0-1.3); Monocytes % (auto) 8.1 % (0.0-12.0); Neutrophils # (auto) 2.6 10 ^3/uL (1.6-8.6); Neutrophils % (auto) 56.7 % (37.0-80.0); Red Blood Cells 2.74 10^6/uL (4.5-5.90); Red Cell Distribution Width 14.2 % (11.8-14.3); White Blood Cell 4.5 10^3/uL (4.4-10.8)
[2022-08-16 06:54] LABS: BUN/Creatinine Ratio 14.1; Calcium 7.9 mg/dL (8.5-10.1); Phosphorus 2.6 mg/dL (2.5-4.90); Potassium 4.2 mmol/L (3.5-5.1)
[2022-08-16] MEDS: SOD CHL 0.45% 1,000 ML IV SCH ×2 (07:15→17:17)
[2022-08-16] MEDS ORDERED: EMPAGLIFLOZIN 10 MG TAB PO SCH (10:00)
[2022-08-16] MEDS: VANCOMYCIN 1GM/250ML 250 ML IV SCH (10:49)
[2022-08-16] MEDS: ZINC SULFATE 220mg CAP or TAB PO SCH (10:49)
[2022-08-16] MEDS: PATIENTS OWN MEDICATION (Fenofibrate 160 MG) PO SCH (10:49)
[2022-08-16] MEDS: JARDIANCE 10 MG PO SCH (10:49)
[2022-08-16] MEDS: PANTOPRAZOLE 40 MG/10 ML VIAL INJ IV SCH (10:49)
[2022-08-16] MEDS: ASCORBIC ACID 500 MG TAB PO SCH ×2 (10:50→22:05)
[2022-08-16] MEDS: amLODIPine BESYLATE 5 MG TAB PO SCH (10:50)
[2022-08-16] MEDS: ENOXAPARIN SOD 80 MG/0.8ML SYRINGE SC SCH (10:50)
[2022-08-16] MEDS: DOCUSATE SOD 100 MG CAP PO SCH ×2 (10:50→22:04)
[2022-08-16] MEDS: ASPirin-EC 81 mg tab PO SCH (10:50)
[2022-08-16] MEDS: DAKINS QUARTER STR 0.125% (NaHypochlorite) 473 ML TOPICAL SOL TOP SCH (10:51)
[2022-08-16] MEDS: ALPRAZolam 0.25 MG TAB PO PRN (10:51)
[2022-08-16] MEDS: cefTRIAXone 1GM/50ML D5W 50 ML IV SCH (13:31)
[2022-08-16] MEDS: TAMSULOSIN HYDROCHLORIDE 0.4 MG CAP PO SCH (18:08)
[2022-08-16] MEDS: ATORVASTATIN 20 MG TAB PO SCH (22:04)
[2022-08-16] MEDS: TEMAZEPAM 15 MG CAP PO PRN (22:05)
[2022-08-17] MEDS: SOD CHL 0.45% 1,000 ML IV SCH ×3 (03:15→21:59)
[2022-08-17 05:01] VITALS: BP 169/87
[2022-08-17] MEDS: cloNIDine HCL 0.1 MG TAB PO PRN ×3 (05:18→06:32)
[2022-08-17 05:38] LABS: Calcium 8.4 mg/dL (8.5-10.1); Potassium 4.3 mmol/L (3.5-5.1)
[2022-08-17] MEDS: InsuLIN REG 1unit/0.01ml Soln (100units/ml) SC SCH ×4 (06:14→21:58)
[2022-08-17] MEDS: ACCU-CHEK COMFORT CURVE STRIP VI SCH ×4 (06:14→21:57)
[2022-08-17 07:30] VITALS: BP 159/83
[2022-08-17 09:00] VITALS: BP 159/83
[2022-08-17] MEDS: cefTRIAXone 1GM/50ML D5W 50 ML IV SCH (09:00)
[2022-08-17] MEDS: PATIENTS OWN MEDICATION (Fenofibrate 160 MG) PO SCH (10:00)
[2022-08-17] MEDS: ASPirin-EC 81 mg tab PO SCH (10:10)
[2022-08-17] MEDS: ASCORBIC ACID 500 MG TAB PO SCH ×2 (10:10→21:57)
[2022-08-17] MEDS: amLODIPine BESYLATE 5 MG TAB PO SCH (10:10)
[2022-08-17] MEDS: DOCUSATE SOD 100 MG CAP PO SCH ×2 (10:10→21:57)
[2022-08-17] MEDS: VANCOMYCIN 1GM/250ML 250 ML IV SCH (10:10)
[2022-08-17] MEDS: ZINC SULFATE 220mg CAP or TAB PO SCH (10:10)
[2022-08-17] MEDS: JARDIANCE 10 MG PO SCH (10:11)
[2022-08-17] MEDS ORDERED: LOSARTAN POTASSIUM 50 MG TAB PO ONE (10:45)
[2022-08-17] MEDS: DAKINS QUARTER STR 0.125% (NaHypochlorite) 473 ML TOPICAL SOL TOP SCH (10:51)
[2022-08-17] MEDS: ENOXAPARIN SOD 80 MG/0.8ML SYRINGE SC SCH (10:51)
[2022-08-17 13:00] VITALS: BP 167/81
[2022-08-17] MEDS: MORPHINE SULFATE INJ 2 MG/ml SYRG IV PRN (13:05)
[2022-08-17 17:00] VITALS: BP 134/59
[2022-08-17] MEDS: TAMSULOSIN HYDROCHLORIDE 0.4 MG CAP PO SCH (19:50)
[2022-08-17] MEDS: TEMAZEPAM 15 MG CAP PO PRN (21:57)
[2022-08-17] MEDS: ATORVASTATIN 20 MG TAB PO SCH (21:57)
[2022-08-17 22:00] VITALS: BP 140/85
[2022-08-18 05:00] VITALS: BP 155/85
[2022-08-18] MEDS: ACCU-CHEK COMFORT CURVE STRIP VI SCH ×4 (05:36→22:45)
[2022-08-18] MEDS: InsuLIN REG 1unit/0.01ml Soln (100units/ml) SC SCH ×4 (06:30→22:00)
[2022-08-18 06:42] LABS: Basophils # (auto) 0.1 10 ^3/uL (0-0.2); Basophils % (auto) 1.6 % (0.0-2.0); Eosinophils # (auto) 0.4 10 ^3/uL (0-0.8); Eosinophils % (auto) 7.6 % (0.0-7.0); Hematocrit 24.3 % (41.0-53.0); Hemoglobin 8.2 g/dL (13.5-17.5); Lymphocytes % (auto) 21.4 % (10.0-50.0); Mean Corpuscular Hemoglobin 29.8 pg (28.0-32.0); Mean Corpuscular Hgb Conc. 33.9 g/dL (32.0-36.0); Mean Corpuscular Volume 87.7 fL (80.0-100.0); Monocytes # (auto) 0.4 10 ^3/uL (0-1.3); Monocytes % (auto) 8.9 % (0.0-12.0); Neutrophils # (auto) 2.9 10 ^3/uL (1.6-8.6); Neutrophils % (auto) 60.5 % (37.0-80.0); Red Blood Cells 2.77 10^6/uL (4.5-5.90); Red Cell Distribution Width 13.9 % (11.8-14.3); White Blood Cell 4.8 10^3/uL (4.4-10.8)
[2022-08-18 06:51] LABS: BUN/Creatinine Ratio 15.6
[2022-08-18 06:52] LABS: Calcium 8.3 mg/dL (8.5-10.1)
[2022-08-18 07:42] VITALS: BP 161/74
[2022-08-18] MEDS: ZINC SULFATE 220mg CAP or TAB PO SCH (09:56)
[2022-08-18] MEDS: cefTRIAXone 1GM/50ML D5W 50 ML IV SCH (09:56)
[2022-08-18] MEDS: LOSARTAN POTASSIUM 50 MG TAB PO SCH (09:57)
[2022-08-18] MEDS: DOCUSATE SOD 100 MG CAP PO SCH ×2 (09:57→22:50)
[2022-08-18] MEDS: amLODIPine BESYLATE 5 MG TAB PO SCH (09:58)
[2022-08-18] MEDS: ASCORBIC ACID 500 MG TAB PO SCH ×2 (09:58→22:51)
[2022-08-18] MEDS: ASPirin-EC 81 mg tab PO SCH (09:58)
[2022-08-18] MEDS: ENOXAPARIN SOD 80 MG/0.8ML SYRINGE SC SCH (09:58)
[2022-08-18] MEDS: DAKINS QUARTER STR 0.125% (NaHypochlorite) 473 ML TOPICAL SOL TOP SCH (09:59)
[2022-08-18] MEDS: PATIENTS OWN MEDICATION (Fenofibrate 160 MG) PO SCH (10:00)
[2022-08-18 10:49] LABS: INR 1.14 (0.9-1.15); Partial Thromboplastin Time 32.5 sec (24.6-33.4)
[2022-08-18] MEDS: VANCOMYCIN 1GM/250ML 250 ML IV SCH (11:14)
[2022-08-18] MEDS: JARDIANCE 10 MG PO SCH (11:36)
[2022-08-18 12:02] VITALS: BP 157/67
[2022-08-18 16:31] VITALS: BP 137/74
[2022-08-18] MEDS: TAMSULOSIN HYDROCHLORIDE 0.4 MG CAP PO SCH (17:29)
[2022-08-18 22:00] VITALS: BP 153/75
[2022-08-18] MEDS: ATORVASTATIN 20 MG TAB PO SCH (22:50)
[2022-08-19] MEDS: TEMAZEPAM 15 MG CAP PO PRN ×2 (00:29→22:58)
[2022-08-19 05:00] VITALS: BP 163/83
[2022-08-19] MEDS: ACCU-CHEK COMFORT CURVE STRIP VI SCH ×4 (06:33→21:46)
[2022-08-19] MEDS: InsuLIN REG 1unit/0.01ml Soln (100units/ml) SC SCH ×4 (06:36→21:49)
[2022-08-19] MEDS: ASPirin-EC 81 mg tab PO SCH (09:26)
[2022-08-19] MEDS: amLODIPine BESYLATE 5 MG TAB PO SCH (09:27)
[2022-08-19] MEDS: LOSARTAN POTASSIUM 50 MG TAB PO SCH (09:27)
[2022-08-19] MEDS: DOCUSATE SOD 100 MG CAP PO SCH ×2 (09:28→21:50)
[2022-08-19] MEDS: ZINC SULFATE 220mg CAP or TAB PO SCH (09:29)
[2022-08-19] MEDS: ASCORBIC ACID 500 MG TAB PO SCH ×2 (09:29→21:50)
[2022-08-19] MEDS: ENOXAPARIN SOD 80 MG/0.8ML SYRINGE SC SCH (09:30)
[2022-08-19] MEDS: cefTRIAXone 1GM/50ML D5W 50 ML IV SCH (09:31)
[2022-08-19] MEDS: VANCOMYCIN 1GM/250ML 250 ML IV SCH (09:31)
[2022-08-19] MEDS: PATIENTS OWN MEDICATION (Fenofibrate 160 MG) PO SCH (09:32)
[2022-08-19] MEDS: DAKINS QUARTER STR 0.125% (NaHypochlorite) 473 ML TOPICAL SOL TOP SCH (09:37)
[2022-08-19] MEDS: JARDIANCE 10 MG PO SCH (10:00)
[2022-08-19 12:34] VITALS: BP 157/98
[2022-08-19] MEDS ORDERED: LIDOCAINE 1% (LOCAL ANESTH.) PF 5ml SDV ID ONE (15:00)
[2022-08-19 16:32] VITALS: BP 155/72
[2022-08-19] MEDS: TAMSULOSIN HYDROCHLORIDE 0.4 MG CAP PO SCH (18:24)
[2022-08-19] MEDS: SODIUM CHLOR 0.9% PF (SALINE LOCK) 10ML VIAL/SYR IV SCH (21:49)
[2022-08-19] MEDS: ATORVASTATIN 20 MG TAB PO SCH (21:50)
[2022-08-19] MEDS: cloNIDine HCL 0.1 MG TAB PO PRN (21:51)
[2022-08-19 22:00] VITALS: BP 175/76
[2022-08-20] VITALS (7 sets, daily range): BP systolic 136–160; BP diastolic 65–78
[2022-08-20 05:55] LABS: Basophils # (auto) 0.1 10 ^3/uL (0-0.2); Eosinophils # (auto) 0.4 10 ^3/uL (0-0.8); Hemoglobin 8.4 g/dL (13.5-17.5); Monocytes # (auto) 0.5 10 ^3/uL (0-1.3); Nucleated Red Blood Cells % 0.2 %
[2022-08-20 06:00] LABS: Basophils % (auto) 1.7 % (0.0-2.0); Eosinophils % (auto) 7.5 % (0.0-7.0); Hematocrit 25.1 % (41.0-53.0); Lymphocytes # (auto) 1.3 10 ^3/uL (0.4-5.4); Lymphocytes % (auto) 22.8 % (10.0-50.0); Mean Corpuscular Hemoglobin 29.8 pg (28.0-32.0); Mean Corpuscular Hgb Conc. 33.6 g/dL (32.0-36.0); Mean Corpuscular Volume 88.6 fL (80.0-100.0); Monocytes % (auto) 9.1 % (0.0-12.0); Neutrophils # (auto) 3.4 10 ^3/uL (1.6-8.6); Neutrophils % (auto) 58.9 % (37.0-80.0); Red Blood Cells 2.83 10^6/uL (4.5-5.90); Red Cell Distribution Width 14.6 % (11.8-14.3); White Blood Cell 5.8 10^3/uL (4.4-10.8)
[2022-08-20 06:12] LABS: Potassium 4.1 mmol/L (3.5-5.1)
[2022-08-20] MEDS: ACCU-CHEK COMFORT CURVE STRIP VI SCH ×4 (06:12→21:36)
[2022-08-20] MEDS: InsuLIN REG 1unit/0.01ml Soln (100units/ml) SC SCH ×4 (06:14→21:47)
[2022-08-20] MEDS: cefTRIAXone 1GM/50ML D5W 50 ML IV SCH (09:21)
[2022-08-20] MEDS: VANCOMYCIN 1GM/250ML 250 ML IV SCH (09:21)
[2022-08-20] MEDS: ZINC SULFATE 220mg CAP or TAB PO SCH (09:21)
[2022-08-20] MEDS: ASCORBIC ACID 500 MG TAB PO SCH ×2 (09:22→21:35)
[2022-08-20] MEDS: DOCUSATE SOD 100 MG CAP PO SCH ×2 (09:22→21:35)
[2022-08-20] MEDS: LOSARTAN POTASSIUM 50 MG TAB PO SCH (09:22)
[2022-08-20] MEDS: amLODIPine BESYLATE 5 MG TAB PO SCH (09:22)
[2022-08-20] MEDS: ASPirin-EC 81 mg tab PO SCH (09:22)
[2022-08-20] MEDS: ENOXAPARIN SOD 80 MG/0.8ML SYRINGE SC SCH (09:25)
[2022-08-20] MEDS: DAKINS QUARTER STR 0.125% (NaHypochlorite) 473 ML TOPICAL SOL TOP SCH (09:25)
[2022-08-20] MEDS ORDERED: CLOPIDOGREL 300 MG TAB PO ONE (09:30)
[2022-08-20] MEDS: PATIENTS OWN MEDICATION (Fenofibrate 160 MG) PO SCH (10:00)
[2022-08-20] MEDS: JARDIANCE 10 MG PO SCH (10:00)
[2022-08-20] MEDS ORDERED: EPOETIN ALFA-EPBX 10,000 UNIT/1ML VIAL SC ONE (12:00)
[2022-08-20] MEDS: SODIUM CHLOR 0.9% PF (SALINE LOCK) 10ML VIAL/SYR IV SCH ×2 (12:21→21:38)
[2022-08-20] MEDS: SODIUM FERR GLUC 62.5MG/5ML 125 MG in SODIUM CHL 0.9% 100 ML IV SCH (13:36)
[2022-08-20] MEDS: Juven Fruit Punch Powder PACKET 28.8gm PO SCH (18:30)
[2022-08-20] MEDS: TAMSULOSIN HYDROCHLORIDE 0.4 MG CAP PO SCH (20:20)
[2022-08-20] MEDS: TEMAZEPAM 15 MG CAP PO PRN (21:34)
[2022-08-20] MEDS: ATORVASTATIN 20 MG TAB PO SCH (21:35)
[2022-08-21 05:14] VITALS: BP 144/80
[2022-08-21] MEDS: ACCU-CHEK COMFORT CURVE STRIP VI SCH ×4 (05:43→22:00)
[2022-08-21] MEDS: InsuLIN REG 1unit/0.01ml Soln (100units/ml) SC SCH ×4 (05:49→22:00)
[2022-08-21 06:45] LABS: Basophils # (auto) 0.1 10 ^3/uL (0-0.2); Basophils % (auto) 1.1 % (0.0-2.0); Eosinophils # (auto) 0.4 10 ^3/uL (0-0.8); Eosinophils % (auto) 7.1 % (0.0-7.0); Hematocrit 25.4 % (41.0-53.0); Hemoglobin 8.7 g/dL (13.5-17.5); Lymphocytes # (auto) 1.2 10 ^3/uL (0.4-5.4); Lymphocytes % (auto) 23.3 % (10.0-50.0); Mean Corpuscular Hemoglobin 29.3 pg (28.0-32.0); Mean Corpuscular Hgb Conc. 34.2 g/dL (32.0-36.0); Mean Corpuscular Volume 85.7 fL (80.0-100.0); Monocytes # (auto) 0.4 10 ^3/uL (0-1.3); Monocytes % (auto) 8.4 % (0.0-12.0); Neutrophils # (auto) 3.1 10 ^3/uL (1.6-8.6); Neutrophils % (auto) 60.1 % (37.0-80.0); Red Blood Cells 2.96 10^6/uL (4.5-5.90); Red Cell Distribution Width 14.6 % (11.8-14.3); White Blood Cell 5.1 10^3/uL (4.4-10.8)
[2022-08-21 06:58] LABS: Calcium 8.3 mg/dL (8.5-10.1); Potassium 3.8 mmol/L (3.5-5.1)
[2022-08-21 07:02] LABS: BUN/Creatinine Ratio 22.1
[2022-08-21] MEDS: Juven Fruit Punch Powder PACKET 28.8gm PO SCH ×2 (08:30→17:49)
[2022-08-21 08:43] VITALS: BP 148/72
[2022-08-21] MEDS: DAKINS QUARTER STR 0.125% (NaHypochlorite) 473 ML TOPICAL SOL TOP SCH (10:00)
[2022-08-21] MEDS: JARDIANCE 10 MG PO SCH (10:00)
[2022-08-21] MEDS: SODIUM CHLOR 0.9% PF (SALINE LOCK) 10ML VIAL/SYR IV SCH (10:00)
[2022-08-21] MEDS: PATIENTS OWN MEDICATION (Fenofibrate 160 MG) PO SCH (10:00)
[2022-08-21] MEDS: cefTRIAXone 1GM/50ML D5W 50 ML IV SCH (10:04)
[2022-08-21] MEDS: VANCOMYCIN 1GM/250ML 250 ML IV SCH (10:04)
[2022-08-21] MEDS: ZINC SULFATE 220mg CAP or TAB PO SCH (10:06)
[2022-08-21] MEDS: ENOXAPARIN SOD 80 MG/0.8ML SYRINGE SC SCH (10:06)
[2022-08-21] MEDS: DOCUSATE SOD 100 MG CAP PO SCH ×2 (10:06→20:41)
[2022-08-21] MEDS: ASPirin-EC 81 mg tab PO SCH (10:06)
[2022-08-21] MEDS: ASCORBIC ACID 500 MG TAB PO SCH (10:07)
[2022-08-21] MEDS: CLOPIDOGREL BISULFATE 75 MG TAB PO SCH (10:07)
[2022-08-21] MEDS: amLODIPine BESYLATE 5 MG TAB PO SCH (10:08)
[2022-08-21] MEDS: LOSARTAN POTASSIUM 50 MG TAB PO SCH (10:08)
[2022-08-21] MEDS: SODIUM FERR GLUC 62.5MG/5ML 125 MG in SODIUM CHL 0.9% 100 ML IV SCH (12:30)
[2022-08-21 13:29] VITALS: BP 152/75
[2022-08-21 17:20] VITALS: BP 155/75
[2022-08-21] MEDS: TAMSULOSIN HYDROCHLORIDE 0.4 MG CAP PO SCH (17:48)
[2022-08-21 20:00] VITALS: BP 148/72
[2022-08-21] MEDS: TEMAZEPAM 15 MG CAP PO PRN (21:00)
[2022-08-21 22:00] VITALS: BP 155/75
[2022-08-22] MEDS: SODIUM CHLOR 0.9% PF (SALINE LOCK) 10ML VIAL/SYR IV SCH ×3 (04:01→21:23)
[2022-08-22] MEDS: ATORVASTATIN 20 MG TAB PO SCH ×2 (04:01→21:23)
[2022-08-22] MEDS: ASCORBIC ACID 500 MG TAB PO SCH ×3 (04:02→21:23)
[2022-08-22 05:00] VITALS: BP 203/93
[2022-08-22] MEDS: InsuLIN REG 1unit/0.01ml Soln (100units/ml) SC SCH ×4 (05:18→23:00)
[2022-08-22] MEDS: ACCU-CHEK COMFORT CURVE STRIP VI SCH ×4 (05:24→22:59)
[2022-08-22] MEDS: cloNIDine HCL 0.1 MG TAB PO PRN (06:00)
[2022-08-22 08:50] VITALS: BP 130/59
[2022-08-22] MEDS: cefTRIAXone 1GM/50ML D5W 50 ML IV SCH (09:26)
[2022-08-22] MEDS: Juven Fruit Punch Powder PACKET 28.8gm PO SCH ×2 (09:26→18:11)
[2022-08-22] MEDS: JARDIANCE 10 MG PO SCH (10:00)
[2022-08-22] MEDS: DOCUSATE SOD 100 MG CAP PO SCH ×2 (10:04→21:23)
[2022-08-22] MEDS: ZINC SULFATE 220mg CAP or TAB PO SCH (10:04)
[2022-08-22] MEDS: VANCOMYCIN 1GM/250ML 250 ML IV SCH (10:04)
[2022-08-22] MEDS: CLOPIDOGREL BISULFATE 75 MG TAB PO SCH (10:05)
[2022-08-22] MEDS: LOSARTAN POTASSIUM 50 MG TAB PO SCH (10:05)
[2022-08-22] MEDS: ASPirin-EC 81 mg tab PO SCH (10:05)
[2022-08-22] MEDS: amLODIPine BESYLATE 5 MG TAB PO SCH (10:05)
[2022-08-22] MEDS: ENOXAPARIN SOD 80 MG/0.8ML SYRINGE SC SCH (10:06)
[2022-08-22] MEDS: DAKINS QUARTER STR 0.125% (NaHypochlorite) 473 ML TOPICAL SOL TOP SCH (10:06)
[2022-08-22] MEDS: SODIUM FERR GLUC 62.5MG/5ML 125 MG in SODIUM CHL 0.9% 100 ML IV SCH (11:46)
[2022-08-22 12:30] VITALS: BP 136/66
[2022-08-22 16:50] VITALS: BP 146/69
[2022-08-22] MEDS: TAMSULOSIN HYDROCHLORIDE 0.4 MG CAP PO SCH (18:11)
[2022-08-22 22:00] VITALS: BP 156/71
[2022-08-22] MEDS: TEMAZEPAM 15 MG CAP PO PRN (22:58)
[2022-08-23 05:00] VITALS: BP 155/70
[2022-08-23] MEDS: ACCU-CHEK COMFORT CURVE STRIP VI SCH ×4 (06:11→21:36)
[2022-08-23] MEDS: InsuLIN REG 1unit/0.01ml Soln (100units/ml) SC SCH ×4 (06:11→21:37)
[2022-08-23 06:31] LABS: BUN/Creatinine Ratio 17.7; Calcium 8.2 mg/dL (8.5-10.1); Magnesium 2.3 mg/dL (1.6-2.6); Potassium 3.6 mmol/L (3.5-5.1)
[2022-08-23 06:39] LABS: INR 1.06 (0.9-1.15); Partial Thromboplastin Time 31.1 sec (24.6-33.4)
[2022-08-23 06:41] LABS: Basophils # (auto) 0.1 10 ^3/uL (0-0.2); Basophils % (auto) 1.3 % (0.0-2.0); Eosinophils # (auto) 0.4 10 ^3/uL (0-0.8); Eosinophils % (auto) 7.5 % (0.0-7.0); Hematocrit 24.7 % (41.0-53.0); Hemoglobin 8.5 g/dL (13.5-17.5); Lymphocytes # (auto) 1.3 10 ^3/uL (0.4-5.4); Lymphocytes % (auto) 21.4 % (10.0-50.0); Mean Corpuscular Hemoglobin 30.1 pg (28.0-32.0); Mean Corpuscular Hgb Conc. 34.4 g/dL (32.0-36.0); Mean Corpuscular Volume 87.3 fL (80.0-100.0); Monocytes # (auto) 0.5 10 ^3/uL (0-1.3); Monocytes % (auto) 8.4 % (0.0-12.0); Neutrophils # (auto) 3.7 10 ^3/uL (1.6-8.6); Neutrophils % (auto) 61.4 % (37.0-80.0); Nucleated Red Blood Cells % 0.1 %; Red Blood Cells 2.83 10^6/uL (4.5-5.90); Red Cell Distribution Width 14.9 % (11.8-14.3)
[2022-08-23] MEDS: Juven Fruit Punch Powder PACKET 28.8gm PO SCH ×2 (08:00→18:09)
[2022-08-23 08:57] VITALS: BP 158/74
[2022-08-23] MEDS: JARDIANCE 10 MG PO SCH (08:59)
[2022-08-23] MEDS: ZINC SULFATE 220mg CAP or TAB PO SCH (09:00)
[2022-08-23] MEDS: SODIUM CHLOR 0.9% PF (SALINE LOCK) 10ML VIAL/SYR IV SCH ×2 (09:00→21:37)
[2022-08-23] MEDS: ASPirin-EC 81 mg tab PO SCH (09:01)
[2022-08-23] MEDS: LOSARTAN POTASSIUM 50 MG TAB PO SCH (09:01)
[2022-08-23] MEDS: DOCUSATE SOD 100 MG CAP PO SCH ×2 (09:01→21:34)
[2022-08-23] MEDS: ASCORBIC ACID 500 MG TAB PO SCH ×2 (09:02→21:35)
[2022-08-23] MEDS: amLODIPine BESYLATE 5 MG TAB PO SCH (09:02)
[2022-08-23] MEDS: DAKINS QUARTER STR 0.125% (NaHypochlorite) 473 ML TOPICAL SOL TOP SCH (09:02)
[2022-08-23] MEDS: CLOPIDOGREL BISULFATE 75 MG TAB PO SCH (09:02)
[2022-08-23] MEDS: cefTRIAXone 1GM/50ML D5W 50 ML IV SCH (09:03)
[2022-08-23 12:51] VITALS: BP 153/67
[2022-08-23] MEDS: SODIUM FERR GLUC 62.5MG/5ML 125 MG in SODIUM CHL 0.9% 100 ML IV SCH (13:02)
[2022-08-23] MEDS: VANCOMYCIN 1GM/250ML 250 ML IV SCH (15:44)
[2022-08-23 16:52] VITALS: BP 152/68
[2022-08-23] MEDS: TAMSULOSIN HYDROCHLORIDE 0.4 MG CAP PO SCH (17:08)
[2022-08-23] MEDS: ATORVASTATIN 20 MG TAB PO SCH (21:34)
[2022-08-23] MEDS: TEMAZEPAM 15 MG CAP PO PRN (21:34)
[2022-08-23 22:00] VITALS: BP 155/79
[2022-08-24] VITALS (10 sets, daily range): BP systolic 121–162; BP diastolic 63–86
[2022-08-24] MEDS: ACCU-CHEK COMFORT CURVE STRIP VI SCH ×4 (06:09→21:54)
[2022-08-24] MEDS: InsuLIN REG 1unit/0.01ml Soln (100units/ml) SC SCH ×4 (06:10→22:03)
[2022-08-24 06:45] LABS: Basophils # (auto) 0.1 10 ^3/uL (0-0.2); Eosinophils # (auto) 0.5 10 ^3/uL (0-0.8); Eosinophils % (auto) 7.8 % (0.0-7.0); Hematocrit 26.4 % (41.0-53.0); Hemoglobin 9.1 g/dL (13.5-17.5); Lymphocytes # (auto) 1.1 10 ^3/uL (0.4-5.4); Lymphocytes % (auto) 17.8 % (10.0-50.0); Mean Corpuscular Hemoglobin 30.2 pg (28.0-32.0); Mean Corpuscular Hgb Conc. 34.5 g/dL (32.0-36.0); Mean Corpuscular Volume 87.6 fL (80.0-100.0); Monocytes # (auto) 0.5 10 ^3/uL (0-1.3); Monocytes % (auto) 7.7 % (0.0-12.0); Neutrophils # (auto) 3.9 10 ^3/uL (1.6-8.6); Neutrophils % (auto) 65.7 % (37.0-80.0); Red Blood Cells 3.01 10^6/uL (4.5-5.90); Red Cell Distribution Width 14.8 % (11.8-14.3)
[2022-08-24] MEDS: Juven Fruit Punch Powder PACKET 28.8gm PO SCH ×2 (08:00→17:53)
[2022-08-24] MEDS: SODIUM CHLOR 0.9% PF (SALINE LOCK) 10ML VIAL/SYR IV SCH ×2 (10:04→21:54)
[2022-08-24] MEDS: cefTRIAXone 1GM/50ML D5W 50 ML IV SCH (10:13)
[2022-08-24] MEDS: LOSARTAN POTASSIUM 50 MG TAB PO SCH (10:31)
[2022-08-24] MEDS: CLOPIDOGREL BISULFATE 75 MG TAB PO SCH (10:32)
[2022-08-24] MEDS: amLODIPine BESYLATE 5 MG TAB PO SCH (10:32)
[2022-08-24] MEDS: ASPirin-EC 81 mg tab PO SCH (10:32)
[2022-08-24] MEDS: DAKINS QUARTER STR 0.125% (NaHypochlorite) 473 ML TOPICAL SOL TOP SCH (10:33)
[2022-08-24] MEDS: JARDIANCE 10 MG PO SCH (10:33)
[2022-08-24] MEDS: ZINC SULFATE 220mg CAP or TAB PO SCH (10:33)
[2022-08-24] MEDS: ASCORBIC ACID 500 MG TAB PO SCH ×2 (10:33→21:54)
[2022-08-24] MEDS: DOCUSATE SOD 100 MG CAP PO SCH ×2 (10:33→21:53)
[2022-08-24] MEDS ORDERED: IODIXANOL 320MG/ML 100ML BTL IV ONE (14:22)
[2022-08-24] MEDS ORDERED: SODIUM CHL 0.9% 50 ML ONE (14:22)
[2022-08-24] MEDS ORDERED: fentaNYL CITRATE 100 MCG/2 ML VL ONE (14:22)
[2022-08-24] MEDS ORDERED: ANGIOMAX 250 MG VIAL IV ONE (14:22)
[2022-08-24] MEDS ORDERED: MIDAZOLAM HCL 2MG/2ML 2ml VIAL (1mg/ml) ONE (14:22)
[2022-08-24] MEDS ORDERED: LIDOCAINE 2%HCL (LOCAL ANESTH.) INJ 20ML MDV ONE (14:23)
[2022-08-24] MEDS ORDERED: diphenhdrAMINE HCL 50 MG/1 ML VL ONE (15:10)
[2022-08-24] MEDS ORDERED: diphenhdrAMINE-ZINC ACETATE 1 APPLIC APPL TOP PRN (17:00)
[2022-08-24] MEDS: SODIUM FERR GLUC 62.5MG/5ML 125 MG in SODIUM CHL 0.9% 100 ML IV SCH (17:02)
[2022-08-24] MEDS: TAMSULOSIN HYDROCHLORIDE 0.4 MG CAP PO SCH (17:53)
[2022-08-24] MEDS: ATORVASTATIN 20 MG TAB PO SCH (21:54)
[2022-08-24] MEDS: VANCOMYCIN 1GM/250ML 250 ML IV SCH (22:45)
[2022-08-25 05:00] VITALS: BP 148/72
[2022-08-25 05:33] LABS: Basophils # (auto) 0.1 10 ^3/uL (0-0.2); Basophils % (auto) 1.1 % (0.0-2.0); Eosinophils # (auto) 0.5 10 ^3/uL (0-0.8); Eosinophils % (auto) 8.7 % (0.0-7.0); Hematocrit 26.8 % (41.0-53.0); Hemoglobin 9.4 g/dL (13.5-17.5); Lymphocytes % (auto) 17.4 % (10.0-50.0); Mean Corpuscular Hemoglobin 30.5 pg (28.0-32.0); Monocytes # (auto) 0.6 10 ^3/uL (0-1.3); Monocytes % (auto) 9.9 % (0.0-12.0); Neutrophils # (auto) 3.7 10 ^3/uL (1.6-8.6); Neutrophils % (auto) 62.9 % (37.0-80.0); Red Blood Cells 3.08 10^6/uL (4.5-5.90); Red Cell Distribution Width 15.3 % (11.8-14.3); White Blood Cell 5.9 10^3/uL (4.4-10.8)
[2022-08-25 05:53] LABS: Calcium 8.3 mg/dL (8.5-10.1); Potassium 3.9 mmol/L (3.5-5.1)
[2022-08-25 05:55] LABS: BUN/Creatinine Ratio 20.3
[2022-08-25] MEDS: ACCU-CHEK COMFORT CURVE STRIP VI SCH ×4 (06:27→21:36)
[2022-08-25] MEDS: InsuLIN REG 1unit/0.01ml Soln (100units/ml) SC SCH ×4 (06:41→22:02)
[2022-08-25] MEDS: Juven Fruit Punch Powder PACKET 28.8gm PO SCH ×2 (07:41→17:36)
[2022-08-25 08:00] VITALS: BP 151/63
[2022-08-25] MEDS: cefTRIAXone 1GM/50ML D5W 50 ML IV SCH (08:50)
[2022-08-25] MEDS: ASPirin-EC 81 mg tab PO SCH (08:57)
[2022-08-25] MEDS: amLODIPine BESYLATE 5 MG TAB PO SCH (08:58)
[2022-08-25] MEDS: CLOPIDOGREL BISULFATE 75 MG TAB PO SCH (08:59)
[2022-08-25] MEDS: DOCUSATE SOD 100 MG CAP PO SCH ×2 (08:59→21:34)
[2022-08-25] MEDS: ASCORBIC ACID 500 MG TAB PO SCH ×2 (08:59→21:34)
[2022-08-25] MEDS: ZINC SULFATE 220mg CAP or TAB PO SCH (08:59)
[2022-08-25 09:00] VITALS: BP 153/68
[2022-08-25] MEDS: SODIUM CHLOR 0.9% PF (SALINE LOCK) 10ML VIAL/SYR IV SCH ×2 (09:00→21:36)
[2022-08-25] MEDS: LOSARTAN POTASSIUM 50 MG TAB PO SCH (09:00)
[2022-08-25] MEDS: JARDIANCE 10 MG PO SCH (09:00)
[2022-08-25] MEDS: DAKINS QUARTER STR 0.125% (NaHypochlorite) 473 ML TOPICAL SOL TOP SCH (10:00)
[2022-08-25] MEDS: SODIUM FERR GLUC 62.5MG/5ML 125 MG in SODIUM CHL 0.9% 100 ML IV SCH (12:33)
[2022-08-25 13:00] VITALS: BP 148/67
[2022-08-25] MEDS: diphenhdrAMINE HCL 50 MG/1 ML VL IV PRN ×2 (16:00→16:50)
[2022-08-25 16:30] VITALS: BP 153/86
[2022-08-25] MEDS: TAMSULOSIN HYDROCHLORIDE 0.4 MG CAP PO SCH (17:36)
[2022-08-25] MEDS: ATORVASTATIN 20 MG TAB PO SCH (21:34)
[2022-08-25 22:00] VITALS: BP 143/71
[2022-08-26] MEDS: VANCOMYCIN 1GM/250ML 250 ML IV SCH (03:56)
[2022-08-26] MEDS: diphenhdrAMINE HCL 50 MG/1 ML VL IV PRN (04:11)
[2022-08-26 05:00] VITALS: BP 151/71
[2022-08-26] MEDS: ACCU-CHEK COMFORT CURVE STRIP VI SCH ×4 (06:30→22:15)
[2022-08-26] MEDS: InsuLIN REG 1unit/0.01ml Soln (100units/ml) SC SCH ×4 (06:35→22:32)
[2022-08-26] MEDS: DAKINS QUARTER STR 0.125% (NaHypochlorite) 473 ML TOPICAL SOL TOP SCH (07:02)
[2022-08-26 07:42] VITALS: BP 151/63
[2022-08-26 08:00] VITALS: BP 150/69
[2022-08-26] MEDS: Juven Fruit Punch Powder PACKET 28.8gm PO SCH ×2 (08:04→17:39)
[2022-08-26] MEDS: JARDIANCE 10 MG PO SCH (08:33)
[2022-08-26] MEDS: cefTRIAXone 1GM/50ML D5W 50 ML IV SCH (08:48)
[2022-08-26] MEDS: ZINC SULFATE 220mg CAP or TAB PO SCH (08:49)
[2022-08-26] MEDS: ASPirin-EC 81 mg tab PO SCH (08:49)
[2022-08-26] MEDS: DOCUSATE SOD 100 MG CAP PO SCH ×2 (08:49→22:12)
[2022-08-26] MEDS: CLOPIDOGREL BISULFATE 75 MG TAB PO SCH (08:49)
[2022-08-26] MEDS: ASCORBIC ACID 500 MG TAB PO SCH ×2 (08:49→22:12)
[2022-08-26] MEDS: ALPRAZolam 0.25 MG TAB PO PRN (08:49)
[2022-08-26] MEDS: LOSARTAN POTASSIUM 50 MG TAB PO SCH (08:50)
[2022-08-26] MEDS: SODIUM CHLOR 0.9% PF (SALINE LOCK) 10ML VIAL/SYR IV SCH ×2 (08:50→22:15)
[2022-08-26] MEDS: amLODIPine BESYLATE 5 MG TAB PO SCH (10:06)
[2022-08-26] MEDS: SODIUM FERR GLUC 62.5MG/5ML 125 MG in SODIUM CHL 0.9% 100 ML IV SCH (11:51)
[2022-08-26 12:00] VITALS: BP 138/70
[2022-08-26 16:00] VITALS: BP 147/72
[2022-08-26] MEDS: TAMSULOSIN HYDROCHLORIDE 0.4 MG CAP PO SCH (17:38)
[2022-08-26 22:00] VITALS: BP 163/87
[2022-08-26] MEDS: ATORVASTATIN 20 MG TAB PO SCH (22:12)
[2022-08-26] MEDS: TEMAZEPAM 15 MG CAP PO PRN (22:12)
[2022-08-27] MEDS: cloNIDine HCL 0.1 MG TAB PO PRN (00:48)
[2022-08-27 05:07] VITALS: BP 144/67
[2022-08-27] MEDS: InsuLIN REG 1unit/0.01ml Soln (100units/ml) SC SCH ×4 (06:21→21:17)
[2022-08-27] MEDS: ACCU-CHEK COMFORT CURVE STRIP VI SCH ×4 (06:21→21:14)
[2022-08-27 08:00] VITALS: BP 160/70
[2022-08-27] MEDS: Juven Fruit Punch Powder PACKET 28.8gm PO SCH ×2 (08:00→17:48)
[2022-08-27] MEDS: DAKINS QUARTER STR 0.125% (NaHypochlorite) 473 ML TOPICAL SOL TOP SCH (10:00)
[2022-08-27] MEDS: JARDIANCE 10 MG PO SCH (10:00)
[2022-08-27] MEDS: cefTRIAXone 1GM/50ML D5W 50 ML IV SCH (10:25)
[2022-08-27] MEDS: VANCOMYCIN 1GM/250ML 250 ML IV SCH (10:25)
[2022-08-27] MEDS: DOCUSATE SOD 100 MG CAP PO SCH ×2 (10:26→21:13)
[2022-08-27] MEDS: CLOPIDOGREL BISULFATE 75 MG TAB PO SCH (10:26)
[2022-08-27] MEDS: ASPirin-EC 81 mg tab PO SCH (10:26)
[2022-08-27] MEDS: amLODIPine BESYLATE 5 MG TAB PO SCH (10:26)
[2022-08-27] MEDS: ZINC SULFATE 220mg CAP or TAB PO SCH (10:27)
[2022-08-27] MEDS: ASCORBIC ACID 500 MG TAB PO SCH ×2 (10:27→21:12)
[2022-08-27] MEDS: LOSARTAN POTASSIUM 50 MG TAB PO SCH (10:27)
[2022-08-27] MEDS: SODIUM CHLOR 0.9% PF (SALINE LOCK) 10ML VIAL/SYR IV SCH ×2 (10:28→21:15)
[2022-08-27] MEDS: diphenhdrAMINE HCL 50 MG/1 ML VL IV PRN (10:32)
[2022-08-27 13:00] VITALS: BP 148/73
[2022-08-27] MEDS: SODIUM FERR GLUC 62.5MG/5ML 125 MG in SODIUM CHL 0.9% 100 ML IV SCH (15:08)
[2022-08-27 17:01] VITALS: BP 113/82
[2022-08-27 17:03] VITALS: BP 142/67
[2022-08-27] MEDS: TAMSULOSIN HYDROCHLORIDE 0.4 MG CAP PO SCH (17:51)
[2022-08-27] MEDS: ATORVASTATIN 20 MG TAB PO SCH (21:12)
[2022-08-27 22:00] VITALS: BP 109/67
[2022-08-27] MEDS: TEMAZEPAM 15 MG CAP PO PRN (22:05)
[2022-08-28 05:00] VITALS: BP 130/58
[2022-08-28] MEDS: InsuLIN REG 1unit/0.01ml Soln (100units/ml) SC SCH ×4 (05:58→22:19)
[2022-08-28] MEDS: ACCU-CHEK COMFORT CURVE STRIP VI SCH ×4 (05:58→22:03)
[2022-08-28 06:15] LABS: Calcium 8.2 mg/dL (8.5-10.1); Potassium 4.2 mmol/L (3.5-5.1)
[2022-08-28 06:17] LABS: BUN/Creatinine Ratio 16.5
[2022-08-28] MEDS: Juven Fruit Punch Powder PACKET 28.8gm PO SCH ×2 (08:00→18:00)
[2022-08-28 09:00] VITALS: BP 156/75
[2022-08-28] MEDS: cefTRIAXone 1GM/50ML D5W 50 ML IV SCH (09:40)
[2022-08-28] MEDS: ASPirin-EC 81 mg tab PO SCH (09:42)
[2022-08-28] MEDS: ASCORBIC ACID 500 MG TAB PO SCH ×2 (09:42→22:20)
[2022-08-28] MEDS: CLOPIDOGREL BISULFATE 75 MG TAB PO SCH (09:42)
[2022-08-28] MEDS: DOCUSATE SOD 100 MG CAP PO SCH ×2 (09:42→22:26)
[2022-08-28] MEDS: ZINC SULFATE 220mg CAP or TAB PO SCH (09:42)
[2022-08-28] MEDS: LOSARTAN POTASSIUM 50 MG TAB PO SCH (09:43)
[2022-08-28] MEDS: amLODIPine BESYLATE 5 MG TAB PO SCH (09:43)
[2022-08-28] MEDS: SODIUM CHLOR 0.9% PF (SALINE LOCK) 10ML VIAL/SYR IV SCH ×2 (09:54→22:27)
[2022-08-28] MEDS: DAKINS QUARTER STR 0.125% (NaHypochlorite) 473 ML TOPICAL SOL TOP SCH (10:00)
[2022-08-28] MEDS: JARDIANCE 10 MG PO SCH (10:00)
[2022-08-28 13:00] VITALS: BP 129/75
[2022-08-28] MEDS: SODIUM FERR GLUC 62.5MG/5ML 125 MG in SODIUM CHL 0.9% 100 ML IV SCH (13:21)
[2022-08-28 17:00] VITALS: BP 153/73
[2022-08-28] MEDS: VANCOMYCIN 1GM/250ML 250 ML IV SCH (17:56)
[2022-08-28] MEDS: TAMSULOSIN HYDROCHLORIDE 0.4 MG CAP PO SCH (17:56)
[2022-08-28 20:00] VITALS: BP 154/69
[2022-08-28 22:00] VITALS: BP 154/69
[2022-08-28] MEDS: TEMAZEPAM 15 MG CAP PO PRN (22:20)
[2022-08-28] MEDS: ATORVASTATIN 20 MG TAB PO SCH (22:21)
[2022-08-29 05:00] VITALS: BP 161/78
[2022-08-29] MEDS: cloNIDine HCL 0.1 MG TAB PO PRN (05:31)
[2022-08-29] MEDS: InsuLIN REG 1unit/0.01ml Soln (100units/ml) SC SCH ×4 (07:00→22:34)
[2022-08-29] MEDS: ACCU-CHEK COMFORT CURVE STRIP VI SCH ×4 (07:06→22:40)
[2022-08-29] MEDS: Juven Fruit Punch Powder PACKET 28.8gm PO SCH ×2 (08:00→18:13)
[2022-08-29 08:59] VITALS: BP 151/70
[2022-08-29] MEDS: SODIUM CHLOR 0.9% PF (SALINE LOCK) 10ML VIAL/SYR IV SCH ×2 (10:00→22:35)
[2022-08-29] MEDS: DAKINS QUARTER STR 0.125% (NaHypochlorite) 473 ML TOPICAL SOL TOP SCH (10:00)
[2022-08-29] MEDS: JARDIANCE 10 MG PO SCH (10:00)
[2022-08-29] MEDS: CLOPIDOGREL BISULFATE 75 MG TAB PO SCH (10:24)
[2022-08-29] MEDS: ZINC SULFATE 220mg CAP or TAB PO SCH (10:24)
[2022-08-29] MEDS: cefTRIAXone 1GM/50ML D5W 50 ML IV SCH (10:24)
[2022-08-29] MEDS: DOCUSATE SOD 100 MG CAP PO SCH ×2 (10:24→22:35)
[2022-08-29] MEDS: ASPirin-EC 81 mg tab PO SCH (10:24)
[2022-08-29] MEDS: ASCORBIC ACID 500 MG TAB PO SCH ×2 (10:24→22:36)
[2022-08-29] MEDS: LOSARTAN POTASSIUM 50 MG TAB PO SCH (10:25)
[2022-08-29] MEDS: amLODIPine BESYLATE 5 MG TAB PO SCH (10:25)
[2022-08-29] MEDS: SODIUM FERR GLUC 62.5MG/5ML 125 MG in SODIUM CHL 0.9% 100 ML IV SCH (13:07)
[2022-08-29 13:08] VITALS: BP 143/70
[2022-08-29 16:53] VITALS: BP 135/69
[2022-08-29] MEDS: TAMSULOSIN HYDROCHLORIDE 0.4 MG CAP PO SCH (17:29)
[2022-08-29 20:00] VITALS: BP 133/64
[2022-08-29 22:00] VITALS: BP 133/64
[2022-08-29] MEDS ORDERED: VANCOMYCIN 1GM/250ML 250 ML IV ONE (22:18)
[2022-08-29] MEDS: ATORVASTATIN 20 MG TAB PO SCH (22:35)
[2022-08-29] MEDS: VANCOMYCIN 1GM/250ML 250 ML IV SCH ×2 (22:35→23:28)
[2022-08-29] MEDS: TEMAZEPAM 15 MG CAP PO PRN (22:41)
[2022-08-30 05:00] VITALS: BP 145/64
[2022-08-30] MEDS: InsuLIN REG 1unit/0.01ml Soln (100units/ml) SC SCH ×2 (06:44→13:03)
[2022-08-30] MEDS: ACCU-CHEK COMFORT CURVE STRIP VI SCH ×2 (06:44→11:30)
[2022-08-30] MEDS: Juven Fruit Punch Powder PACKET 28.8gm PO SCH (08:00)
[2022-08-30 09:00] VITALS: BP 161/78
[2022-08-30] MEDS: JARDIANCE 10 MG PO SCH (10:00)
[2022-08-30] MEDS: SODIUM CHLOR 0.9% PF (SALINE LOCK) 10ML VIAL/SYR IV SCH (10:00)
[2022-08-30] MEDS: DAKINS QUARTER STR 0.125% (NaHypochlorite) 473 ML TOPICAL SOL TOP SCH (10:00)
[2022-08-30] MEDS: ASCORBIC ACID 500 MG TAB PO SCH (10:05)
[2022-08-30] MEDS: DOCUSATE SOD 100 MG CAP PO SCH (10:05)
[2022-08-30] MEDS: ASPirin-EC 81 mg tab PO SCH (10:05)
[2022-08-30] MEDS: ZINC SULFATE 220mg CAP or TAB PO SCH (10:05)
[2022-08-30] MEDS: cefTRIAXone 1GM/50ML D5W 50 ML IV SCH (10:05)
[2022-08-30] MEDS: CLOPIDOGREL BISULFATE 75 MG TAB PO SCH (10:06)
[2022-08-30] MEDS: diphenhdrAMINE HCL 50 MG/1 ML VL IV PRN (10:26)
[2022-08-30] MEDS: amLODIPine BESYLATE 5 MG TAB PO SCH (10:27)
[2022-08-30] MEDS: LOSARTAN POTASSIUM 50 MG TAB PO SCH (10:27)
[2022-08-30 13:00] VITALS: BP 171/77
[2022-08-30] MEDS: SODIUM FERR GLUC 62.5MG/5ML 125 MG in SODIUM CHL 0.9% 100 ML IV SCH (13:33)
[2022-08-30 17:00] VITALS: BP 166/84
== END 2022-08-30 17:19 | DRG 270 ==
LOC: ER 15:02 → OVERFLOW 19:48 → WEST WING 08-14 22:38
PROVIDERS: ADMIT Nurse Practitioner Family; ATTEND Internal Medicine Geriatric Medicine
PROC: 05HY33Z Insertion of Infusion Device into Upper Vein, Percutaneous Approach (ICD-10-PCS; 2022-08-19)
PROC: B54MZZA Ultrasonography of Right Upper Extremity Veins, Guidance (ICD-10-PCS; 2022-08-19)
PROC: 04CP3ZZ Extirpation of Matter from Right Anterior Tibial Artery, Percutaneous Approach (ICD-10-PCS; principal; 2022-08-24)
PROC: 047P3ZZ Dilation of Right Anterior Tibial Artery, Percutaneous Approach (ICD-10-PCS; 2022-08-24)
PROC: 047T3ZZ Dilation of Right Peroneal Artery, Percutaneous Approach (ICD-10-PCS; 2022-08-24)
PROC: 04CT3ZZ Extirpation of Matter from Right Peroneal Artery, Percutaneous Approach (ICD-10-PCS; 2022-08-24)
PROC: B41G1ZZ Fluoroscopy of Left Lower Extremity Arteries using Low Osmolar Contrast (ICD-10-PCS; 2022-08-24)
PROC: B41F1ZZ Fluoroscopy of Right Lower Extremity Arteries using Low Osmolar Contrast (ICD-10-PCS; 2022-08-24)
DX: E11.51 Type 2 diabetes mellitus with diabetic peripheral angiopathy without gangrene (principal); N17.0 Acute kidney failure with tubular necrosis; E44.0 Moderate protein-calorie malnutrition; M86.171 Other acute osteomyelitis, right ankle and foot; L03.115 Cellulitis of right lower limb; N39.0 Urinary tract infection, site not specified; J98.11 Atelectasis; E11.69 Type 2 diabetes mellitus with other specified complication; Z20.822 Contact with and (suspected) exposure to COVID-19; L03.031 Cellulitis of right toe; E78.5 Hyperlipidemia, unspecified; L97.519 Non-pressure chronic ulcer of other part of right foot with unspecified severity; D63.8 Anemia in other chronic diseases classified elsewhere; N18.32 Chronic kidney disease, stage 3b; E11.621 Type 2 diabetes mellitus with foot ulcer; E11.65 Type 2 diabetes mellitus with hyperglycemia; E83.51 Hypocalcemia; E11.22 Type 2 diabetes mellitus with diabetic chronic kidney disease; E11.21 Type 2 diabetes mellitus with diabetic nephropathy; D63.1 Anemia in chronic kidney disease; I12.9 Hypertensive chronic kidney disease with stage 1 through stage 4 chronic kidney disease, or unspecified chronic kidney disease; M20.40 Other hammer toe(s) (acquired), unspecified foot; Z91.199 Patient's noncompliance with other medical treatment and regimen due to unspecified reason; Z68.25 Body mass index [BMI] 25.0-25.9, adult; Z79.4 Long term (current) use of insulin; Z87.442 Personal history of urinary calculi; Z79.84 Long term (current) use of oral hypoglycemic drugs; Z79.899 Other long term (current) drug therapy
CPT/HCPCS: 36415; 36569; 71045; 73700; 73718; 76775; 78582; 80048; 80053; 80061; 80202; 81001; 82270; 82565; 82570; 82728; 82962; 83540; 83550; 83605; 83735; 83880; 84100; 84300; 84443; 84484; 84550; 85025; 85379; 85610; 85730; 86850; 86900; 86901; 87040; 87077; 87081; 87086; 87186; 87205; 87426; 93926; 93971; 96361; 96365; 96375; 97163; 99152; 99153; C1769; C9113; G0378; J0696; J1815; J2250; J2405; J2543; Q9967

== ENCOUNTER 2023-01-29 17:29 | Inpatient (IN) | payer OTHER ==
[~2023-01-29] VITALS: Ht 182.9 cm; Wt 79.0 kg
[2023-01-29 20:01] LABS: Urine Bacteria NONE SEEN /hpf (None Seen); Urine Blood 1+ /uL (Negative); Urine Mucus FEW (None Seen); Urine Specific Gravity 1.014 (1.001-1.035); Urine WBC 1770 /hpf (0 - 3); Urine WBC Clumps PRESENT /hpf (None Seen)
[2023-01-29 23:17] LABS: Basophils # (auto) 0.2 10 ^3/uL (0-0.2); Basophils % (auto) 1.4 % (0.0-2.0); Eosinophils # (auto) 0.4 10 ^3/uL (0-0.8); Eosinophils % (auto) 3.8 % (0.0-7.0); Hematocrit 30.8 % (41.0-53.0); Hemoglobin 10.5 g/dL (13.5-17.5); Lymphocytes # (auto) 1.2 10 ^3/uL (0.4-5.4); Lymphocytes % (auto) 10.8 % (10.0-50.0); Mean Corpuscular Hemoglobin 30.7 pg (28.0-32.0); Mean Corpuscular Hgb Conc. 33.9 g/dL (32.0-36.0); Mean Corpuscular Volume 90.3 fL (80.0-100.0); Monocytes # (auto) 0.6 10 ^3/uL (0-1.3); Monocytes % (auto) 5.5 % (0.0-12.0); Neutrophils % (auto) 78.5 % (37.0-80.0); Red Blood Cells 3.41 10^6/uL (4.5-5.90); Red Cell Distribution Width 14.7 % (11.8-14.3); White Blood Cell 11.4 10^3/uL (4.4-10.8)
[2023-01-29 23:32] LABS: Albumin 3.4 g/dL (3.4-5.0); Calcium 8.9 mg/dL (8.5-10.1); Potassium 4.5 mmol/L (3.5-5.1)
[2023-01-29 23:37] LABS: BUN/Creatinine Ratio 16.5 (10.0-20.0); Bilirubin, Total 0.4 mg/dL (0.2-1.0); Total Protein 7.3 g/dL (6.4-8.2)
[2023-01-30] MEDS ORDERED: cefTRIAXone 1GM/50ML D5W 50 ML IV ONE
[2023-01-30] MEDS ORDERED: CEPH-510 PO ×2 (01:18)
[2023-01-30] MEDS ORDERED: MORPHINE SULFATE INJ 2 MG/ml SYRG IV ONE (03:00)
[2023-01-30] MEDS ORDERED: SODIUM CHLORIDE 0.9% 500 ML IV ONE (03:00)
[2023-01-30] MEDS ORDERED: MORPHINE SULFATE 4 MG/ML SYR/VIAL IM ONE (03:30)
[2023-01-30] MEDS ORDERED: DOCUSATE SOD 100 MG CAP PO PRN (05:15)
[2023-01-30] MEDS ORDERED: ACETAMINOPHEN 325 MG TAB PO PRN (05:15)
[2023-01-30] MEDS ORDERED: NITROGLYCERIN 0.4 MG SL TAB SL PRN (05:15)
[2023-01-30] MEDS ORDERED: ONDANSETRON HCL 4 MG/2 ML VIAL IV PRN (05:15)
[2023-01-30] MEDS ORDERED: MORPHINE SULFATE INJ 2 MG/ml SYRG IV PRN (05:15)
[2023-01-30] MEDS ORDERED: DEXTROSE (50%) 50ML SYRG IV PRN (05:15)
[2023-01-30 06:09] LABS: Basophils # (auto) 0.1 10 ^3/uL (0-0.2); Basophils % (auto) 0.7 % (0.0-2.0); Eosinophils # (auto) 0.4 10 ^3/uL (0-0.8); Eosinophils % (auto) 4.5 % (0.0-7.0); Hemoglobin 10.6 g/dL (13.5-17.5); Lymphocytes # (auto) 1.1 10 ^3/uL (0.4-5.4); Mean Corpuscular Hemoglobin 32.5 pg (28.0-32.0); Mean Corpuscular Hgb Conc. 33.1 g/dL (32.0-36.0); Mean Corpuscular Volume 98.2 fL (80.0-100.0); Monocytes # (auto) 0.6 10 ^3/uL (0-1.3); Monocytes % (auto) 7.2 % (0.0-12.0); Neutrophils # (auto) 6.1 10 ^3/uL (1.6-8.6); Neutrophils % (auto) 74.6 % (37.0-80.0); Nucleated Red Blood Cells % 0.1 %; Red Blood Cells 3.26 10^6/uL (4.5-5.90); Red Cell Distribution Width 15.1 % (11.8-14.3); White Blood Cell 8.1 10^3/uL (4.4-10.8)
[2023-01-30 06:29] LABS: Potassium 4.1 mmol/L (3.5-5.1)
[2023-01-30 06:39] LABS: Albumin 3.2 g/dL (3.4-5.0); BUN/Creatinine Ratio 16.1 (10.0-20.0); Bilirubin, Total 0.4 mg/dL (0.2-1.0); Calcium 8.8 mg/dL (8.5-10.1); Total Protein 7.3 g/dL (6.4-8.2)
[2023-01-30] MEDS: SODIUM CHLORIDE 0.9% 1,000 ML IV SCH ×2 (07:39→22:42)
[2023-01-30] MEDS: InsuLIN REG 1unit/0.01ml Soln (100units/ml) SC SCH ×4 (07:39→22:30)
[2023-01-30] MEDS: ACCU-CHEK COMFORT CURVE STRIP VI SCH ×4 (07:39→22:29)
[2023-01-30] MEDS: HYDROcodone-ACET 5/325MG TAB PO PRN (08:13)
[2023-01-30] MEDS: cefTRIAXone 1GM/50ML D5W 50 ML IV SCH (09:38)
[2023-01-30] MEDS: FAMOTIDINE (10MG/ML) 2ML VL IV SCH ×2 (10:12→22:00)
[2023-01-30] MEDS: ASPirin 81 mg TAB PO SCH (10:13)
[2023-01-30] MEDS: diphenhdrAMINE HCL 25 MG CAP PO PRN (10:21)
[2023-01-30] MEDS ORDERED: CLOP75TA28 PO (16:44)
[2023-01-30] MEDS ORDERED: GLIP5TAB12 PO (16:45)
[2023-01-30] MEDS: TAMSULOSIN HYDROCHLORIDE 0.4 MG CAP PO SCH (17:50)
[2023-01-30] MEDS: MORPHINE SULFATE INJ 2 MG/ml SYRG IV PRN (19:12)
[2023-01-30] MEDS: ATORVASTATIN 20 MG TAB PO SCH (22:29)
[2023-01-30] MEDS ORDERED: TEMAZEPAM 15 MG CAP PO ONE (23:30)
[2023-01-31] MEDS: diphenhdrAMINE HCL 25 MG CAP PO PRN ×2 (00:32→23:27)
[2023-01-31 05:30] LABS: Basophils # (auto) 0.1 10 ^3/uL (0-0.2); Eosinophils # (auto) 0.4 10 ^3/uL (0-0.8); Eosinophils % (auto) 6.6 % (0.0-7.0); Hematocrit 26.5 % (41.0-53.0); Hemoglobin 9.1 g/dL (13.5-17.5); Lymphocytes # (auto) 1.2 10 ^3/uL (0.4-5.4); Lymphocytes % (auto) 17.9 % (10.0-50.0); Mean Corpuscular Hemoglobin 31.1 pg (28.0-32.0); Mean Corpuscular Hgb Conc. 34.2 g/dL (32.0-36.0); Mean Corpuscular Volume 90.8 fL (80.0-100.0); Monocytes # (auto) 0.5 10 ^3/uL (0-1.3); Monocytes % (auto) 7.7 % (0.0-12.0); Neutrophils # (auto) 4.5 10 ^3/uL (1.6-8.6); Neutrophils % (auto) 66.8 % (37.0-80.0); Red Blood Cells 2.92 10^6/uL (4.5-5.90); Red Cell Distribution Width 14.4 % (11.8-14.3); White Blood Cell 6.8 10^3/uL (4.4-10.8)
[2023-01-31 05:47] LABS: Albumin 2.8 g/dL (3.4-5.0); Calcium 8.4 mg/dL (8.5-10.1)
[2023-01-31 05:50] LABS: BUN/Creatinine Ratio 17.6 (10.0-20.0); Bilirubin, Total 0.3 mg/dL (0.2-1.0); Total Protein 6.4 g/dL (6.4-8.2)
[2023-01-31] MEDS: InsuLIN REG 1unit/0.01ml Soln (100units/ml) SC SCH ×4 (07:00→23:28)
[2023-01-31] MEDS: ACCU-CHEK COMFORT CURVE STRIP VI SCH ×4 (07:28→23:27)
[2023-01-31] MEDS: cefTRIAXone 1GM/50ML D5W 50 ML IV SCH (09:09)
[2023-01-31] MEDS: FAMOTIDINE (10MG/ML) 2ML VL IV SCH ×2 (10:08→21:39)
[2023-01-31] MEDS: ASPirin 81 mg TAB PO SCH (10:08)
[2023-01-31] MEDS: SODIUM CHLORIDE 0.9% 1,000 ML IV SCH (14:37)
[2023-01-31] MEDS: TAMSULOSIN HYDROCHLORIDE 0.4 MG CAP PO SCH (17:59)
[2023-01-31] MEDS: MORPHINE SULFATE INJ 2 MG/ml SYRG IV PRN (20:34)
[2023-01-31] MEDS ORDERED: TEMAZEPAM 15 MG CAP PO ONE (21:30)
[2023-01-31] MEDS: ATORVASTATIN 20 MG TAB PO SCH (21:39)
[2023-01-31] MEDS: HYDROcodone-ACET 5/325MG TAB PO PRN (21:39)
[2023-02-01 05:50] LABS: Basophils # (auto) 0.1 10 ^3/uL (0-0.2); Basophils % (auto) 0.8 % (0.0-2.0); Eosinophils # (auto) 0.4 10 ^3/uL (0-0.8); Eosinophils % (auto) 6.9 % (0.0-7.0); Hemoglobin 8.9 g/dL (13.5-17.5); Lymphocytes # (auto) 1.3 10 ^3/uL (0.4-5.4); Lymphocytes % (auto) 20.8 % (10.0-50.0); Mean Corpuscular Hemoglobin 31.9 pg (28.0-32.0); Mean Corpuscular Hgb Conc. 35.6 g/dL (32.0-36.0); Mean Corpuscular Volume 89.6 fL (80.0-100.0); Monocytes # (auto) 0.5 10 ^3/uL (0-1.3); Monocytes % (auto) 8.3 % (0.0-12.0); Neutrophils # (auto) 4.1 10 ^3/uL (1.6-8.6); Neutrophils % (auto) 63.2 % (37.0-80.0); Red Blood Cells 2.79 10^6/uL (4.5-5.90); Red Cell Distribution Width 14.5 % (11.8-14.3); White Blood Cell 6.5 10^3/uL (4.4-10.8)
[2023-02-01 06:08] LABS: Potassium 4.6 mmol/L (3.5-5.1)
[2023-02-01 06:18] LABS: Albumin 2.8 g/dL (3.4-5.0); BUN/Creatinine Ratio 22.1 (10.0-20.0); Bilirubin, Total 0.2 mg/dL (0.2-1.0); Calcium 8.4 mg/dL (8.5-10.1); Total Protein 6.4 g/dL (6.4-8.2)
[2023-02-01] MEDS: SODIUM CHLORIDE 0.9% 1,000 ML IV SCH (07:15)
[2023-02-01] MEDS: ACCU-CHEK COMFORT CURVE STRIP VI SCH ×3 (07:35→17:00)
[2023-02-01] MEDS: InsuLIN REG 1unit/0.01ml Soln (100units/ml) SC SCH ×3 (07:39→18:04)
[2023-02-01] MEDS: cefTRIAXone 1GM/50ML D5W 50 ML IV SCH (10:11)
[2023-02-01] MEDS: FAMOTIDINE (10MG/ML) 2ML VL IV SCH (10:12)
[2023-02-01] MEDS: ASPirin 81 mg TAB PO SCH (10:12)
[2023-02-01] MEDS ORDERED: CIPR250T3 PO (15:44)
[2023-02-01] MEDS ORDERED: TAM04C PO (15:44)
[2023-02-01 17:00] VITALS: BP 156/76
[2023-02-01] MEDS: TAMSULOSIN HYDROCHLORIDE 0.4 MG CAP PO SCH (18:00)
== END 2023-02-01 18:15 | disposition home or self-care (01) | DRG 690 ==
LOC: ER 17:29 → OVERFLOW 01-30 05:22
PROVIDERS: ADMIT Nurse Practitioner Family; ATTEND Internal Medicine
DX: N13.6 Pyonephrosis (principal); N18.4 Chronic kidney disease, stage 4 (severe); Z20.822 Contact with and (suspected) exposure to COVID-19; N40.1 Benign prostatic hyperplasia with lower urinary tract symptoms; E78.5 Hyperlipidemia, unspecified; R33.8 Other retention of urine; I12.9 Hypertensive chronic kidney disease with stage 1 through stage 4 chronic kidney disease, or unspecified chronic kidney disease; E11.22 Type 2 diabetes mellitus with diabetic chronic kidney disease; Z87.442 Personal history of urinary calculi
CPT/HCPCS: 36415; 74176; 80053; 81001; 82962; 83036; 85025; 87086; 87088; 87426; 96361; 96365; 96372; G0378; J0696; J1815; J2405; J3490

== ENCOUNTER 2023-02-05 10:36 | Inpatient (IN) | payer OTHER, MEDICAID ==
[~2023-02-05] VITALS: Ht 182.9 cm; Wt 86.6 kg
[~2023-02-05 10:36] MED LIST changes: +CIPR250T3 PO; -CLIN300C8 PO; +CLOP75TA28 PO; -DOCU1CAP46 PO; +GLIP5TAB12 PO; -HYDR-4902 PO; -TAMS1CAP25 PO
[2023-02-05 11:45] LABS: Urine Bacteria FEW /hpf (None Seen); Urine Blood 2+ /uL (Negative); Urine Specific Gravity 1.013 (1.001-1.035); Urine WBC 1792 /hpf (0 - 3); Urine WBC Clumps PRESENT /hpf (None Seen)
[2023-02-05 11:55] LABS: Amphetamine Screen, Urine NEGATIVE (NEGATIVE); Barbiturate Scree,Urine NEGATIVE (NEGATIVE); Benzodiazephine Screen, Urine NEGATIVE (NEGATIVE); Cannabinoid Screen, Urine NEGATIVE (NEGATIVE); Cocaine Screen, Urine NEGATIVE (NEGATIVE); Opiate Scree,Urine NEGATIVE (NEGATIVE); Phencyclidine Screen, Urine NEGATIVE (NEGATIVE)
[2023-02-05 11:57] LABS: Basophils # (auto) 0.1 10 ^3/uL (0-0.2); Basophils % (auto) 1.1 % (0.0-2.0); Eosinophils # (auto) 0.4 10 ^3/uL (0-0.8); Eosinophils % (auto) 5.8 % (0.0-7.0); Hematocrit 30.6 % (41.0-53.0); Hemoglobin 10.3 g/dL (13.5-17.5); Lymphocytes # (auto) 1.1 10 ^3/uL (0.4-5.4); Lymphocytes % (auto) 16.1 % (10.0-50.0); Mean Corpuscular Hemoglobin 31.3 pg (28.0-32.0); Mean Corpuscular Hgb Conc. 33.8 g/dL (32.0-36.0); Mean Corpuscular Volume 92.5 fL (80.0-100.0); Monocytes # (auto) 0.5 10 ^3/uL (0-1.3); Monocytes % (auto) 7.4 % (0.0-12.0); Neutrophils # (auto) 4.7 10 ^3/uL (1.6-8.6); Neutrophils % (auto) 69.6 % (37.0-80.0); Nucleated Red Blood Cells % 0.1 %; Red Blood Cells 3.31 10^6/uL (4.5-5.90); White Blood Cell 6.7 10^3/uL (4.4-10.8)
[2023-02-05 12:23] LABS: Albumin 3.1 g/dL (3.4-5.0); Calcium 8.9 mg/dL (8.5-10.1); Potassium 4.1 mmol/L (3.5-5.1)
[2023-02-05 12:28] LABS: BUN/Creatinine Ratio 18.1 (10.0-20.0); Bilirubin, Total 0.4 mg/dL (0.2-1.0); Total Protein 6.6 g/dL (6.4-8.2)
[2023-02-05] MEDS ORDERED: PIPERACILLIN-TAZOB 3.375GM 100 ML IV ONE (12:30)
[2023-02-05] MEDS ORDERED: SODIUM CHLORIDE 0.9% 500 ML IV ONE (13:30)
[2023-02-05] MEDS ORDERED: MORPHINE SULFATE INJ 2 MG/ml SYRG IV PRN (13:30)
[2023-02-05] MEDS ORDERED: DEXTROSE (50%) 50ML SYRG IV PRN (13:30)
[2023-02-05] MEDS ORDERED: TAMSULOSIN HYDROCHLORIDE 0.4 MG CAP PO ONE (13:30)
[2023-02-05] MEDS ORDERED: cefTRIAXone 1GM/50ML D5W 50 ML IV ONE (13:30)
[2023-02-05] MEDS ORDERED: DOCUSATE SOD 100 MG CAP PO PRN (13:30)
[2023-02-05] MEDS ORDERED: NITROGLYCERIN 0.4 MG SL TAB SL PRN (13:30)
[2023-02-05] MEDS ORDERED: ONDANSETRON HCL 4 MG/2 ML VIAL IV PRN (13:30)
[2023-02-05] MEDS: QUEtiapine FUMARATE 100 MG TAB PO SCH ×2 (14:00→21:56)
[2023-02-05] MEDS: SODIUM CHLORIDE 0.9% 1,000 ML IV SCH (14:00)
[2023-02-05] MEDS: ACCU-CHEK COMFORT CURVE STRIP VI SCH ×2 (16:59→21:56)
[2023-02-05] MEDS: InsuLIN REG 1unit/0.01ml Soln (100units/ml) SC SCH ×2 (17:04→21:57)
[2023-02-05] MEDS ORDERED: hydrALAZINE HCL 20 MG/ML VL IV ONE (20:00)
[2023-02-05] MEDS ORDERED: MELATONIN 5 MG TAB PO ONE (21:10)
[2023-02-05] MEDS: glipiZIDE 5 MG TAB PO SCH (21:55)
[2023-02-05] MEDS: ATORVASTATIN 20 MG TAB PO SCH (21:55)
[2023-02-06] MEDS: LORazepam 0.5 MG TAB PO PRN ×3 (04:28→17:13)
[2023-02-06 05:28] VITALS: BP 150/76
[2023-02-06 05:40] LABS: Basophils # (auto) 0.1 10 ^3/uL (0-0.2); Basophils % (auto) 0.9 % (0.0-2.0); Eosinophils # (auto) 0.4 10 ^3/uL (0-0.8); Eosinophils % (auto) 5.9 % (0.0-7.0); Hematocrit 27.3 % (41.0-53.0); Hemoglobin 9.4 g/dL (13.5-17.5); Lymphocytes # (auto) 1.2 10 ^3/uL (0.4-5.4); Lymphocytes % (auto) 18.7 % (10.0-50.0); Mean Corpuscular Hemoglobin 31.7 pg (28.0-32.0); Mean Corpuscular Hgb Conc. 34.3 g/dL (32.0-36.0); Mean Corpuscular Volume 92.4 fL (80.0-100.0); Monocytes # (auto) 0.6 10 ^3/uL (0-1.3); Monocytes % (auto) 8.9 % (0.0-12.0); Neutrophils # (auto) 4.3 10 ^3/uL (1.6-8.6); Neutrophils % (auto) 65.6 % (37.0-80.0); Nucleated Red Blood Cells % 0.1 %; Red Blood Cells 2.96 10^6/uL (4.5-5.90); Red Cell Distribution Width 14.6 % (11.8-14.3); White Blood Cell 6.5 10^3/uL (4.4-10.8)
[2023-02-06 05:55] LABS: Albumin 2.9 g/dL (3.4-5.0); BUN/Creatinine Ratio 19.2 (10.0-20.0); Bilirubin, Total 0.3 mg/dL (0.2-1.0); Calcium 8.9 mg/dL (8.5-10.1); Total Protein 6.1 g/dL (6.4-8.2)
[2023-02-06] MEDS: QUEtiapine FUMARATE 100 MG TAB PO SCH ×3 (06:00→22:06)
[2023-02-06] MEDS: SODIUM CHLORIDE 0.9% 1,000 ML IV SCH ×2 (06:10→22:50)
[2023-02-06] MEDS: InsuLIN REG 1unit/0.01ml Soln (100units/ml) SC SCH ×4 (06:46→21:53)
[2023-02-06] MEDS: ACCU-CHEK COMFORT CURVE STRIP VI SCH ×4 (06:46→21:53)
[2023-02-06 08:30] VITALS: BP 160/74
[2023-02-06] MEDS ORDERED: PANTOPRAZOLE 40 MG/10 ML VIAL INJ IV SCH (10:00)
[2023-02-06] MEDS ORDERED: CLOPIDOGREL BISULFATE 75 MG TAB PO SCH (10:00)
[2023-02-06] MEDS: cefTRIAXone 1GM/50ML D5W 50 ML IV SCH (11:27)
[2023-02-06] MEDS: EMPAGLIFLOZIN 10 MG TAB PO SCH (11:29)
[2023-02-06] MEDS: glipiZIDE 5 MG TAB PO SCH ×2 (11:29→22:05)
[2023-02-06] MEDS: amLODIPine BESYLATE 5 MG TAB PO SCH (11:29)
[2023-02-06] MEDS: ASPirin-EC 81 mg tab PO SCH (11:30)
[2023-02-06 12:30] VITALS: BP 172/85
[2023-02-06] MEDS: TAMSULOSIN HYDROCHLORIDE 0.4 MG CAP PO SCH (17:13)
[2023-02-06 17:15] VITALS: BP 163/80
[2023-02-06 22:00] VITALS: BP 164/78
[2023-02-06] MEDS: ATORVASTATIN 20 MG TAB PO SCH (22:06)
[2023-02-06] MEDS ORDERED: cloNIDine HCL 0.1 MG TAB PO ONE (23:00)
[2023-02-06] MEDS ORDERED: cloNIDine HCL 0.1 MG TAB ONE (23:13)
[2023-02-07 05:00] VITALS: BP 172/92
[2023-02-07] MEDS: QUEtiapine FUMARATE 100 MG TAB PO SCH ×3 (06:00→22:00)
[2023-02-07] MEDS: InsuLIN REG 1unit/0.01ml Soln (100units/ml) SC SCH ×4 (06:30→21:59)
[2023-02-07] MEDS: ACCU-CHEK COMFORT CURVE STRIP VI SCH ×4 (06:30→21:47)
[2023-02-07 08:00] VITALS: BP 178/85
[2023-02-07 09:00] VITALS: BP 208/84
[2023-02-07] MEDS: FINASTERIDE 5 MG TAB PO SCH (09:31)
[2023-02-07] MEDS: ASPirin-EC 81 mg tab PO SCH (09:31)
[2023-02-07] MEDS: EMPAGLIFLOZIN 10 MG TAB PO SCH (09:32)
[2023-02-07] MEDS: amLODIPine BESYLATE 5 MG TAB PO SCH (09:32)
[2023-02-07] MEDS: cefTRIAXone 1GM/50ML D5W 50 ML IV SCH (09:33)
[2023-02-07] MEDS: glipiZIDE 5 MG TAB PO SCH ×2 (09:47→22:00)
[2023-02-07 10:57] LABS: INR 1.04 (0.9-1.15)
[2023-02-07 13:00] VITALS: BP 150/81
[2023-02-07 17:00] VITALS: BP 135/99
[2023-02-07] MEDS: SODIUM CHLORIDE 0.9% 1,000 ML IV SCH (17:03)
[2023-02-07] MEDS: ACETAMINOPHEN 325 MG TAB PO PRN (17:04)
[2023-02-07] MEDS: TAMSULOSIN HYDROCHLORIDE 0.4 MG CAP PO SCH (18:42)
[2023-02-07 22:00] VITALS: BP 170/77
[2023-02-07] MEDS: ATORVASTATIN 20 MG TAB PO SCH (22:00)
[2023-02-07] MEDS: hydrALAZINE HCL 20 MG/ML VL IV PRN (22:01)
[2023-02-08] MEDS: hydrALAZINE HCL 20 MG/ML VL IV PRN (04:54)
[2023-02-08] MEDS: ACETAMINOPHEN 325 MG TAB PO PRN ×2 (04:54→22:27)
[2023-02-08 05:00] VITALS: BP 168/77
[2023-02-08 06:11] LABS: Basophils # (auto) 0.1 10 ^3/uL (0-0.2); Basophils % (auto) 0.7 % (0.0-2.0); Eosinophils # (auto) 0 10 ^3/uL (0-0.8); Eosinophils % (auto) 0.2 % (0.0-7.0); Hematocrit 28.7 % (41.0-53.0); Hemoglobin 9.9 g/dL (13.5-17.5); Lymphocytes # (auto) 0.6 10 ^3/uL (0.4-5.4); Lymphocytes % (auto) 7.4 % (10.0-50.0); Mean Corpuscular Hemoglobin 31.5 pg (28.0-32.0); Mean Corpuscular Hgb Conc. 34.4 g/dL (32.0-36.0); Mean Corpuscular Volume 91.6 fL (80.0-100.0); Monocytes # (auto) 0.5 10 ^3/uL (0-1.3); Monocytes % (auto) 5.7 % (0.0-12.0); Neutrophils # (auto) 7.5 10 ^3/uL (1.6-8.6); Red Blood Cells 3.14 10^6/uL (4.5-5.90); Red Cell Distribution Width 14.2 % (11.8-14.3); White Blood Cell 8.7 10^3/uL (4.4-10.8)
[2023-02-08] MEDS: QUEtiapine FUMARATE 100 MG TAB PO SCH ×3 (06:24→22:27)
[2023-02-08] MEDS: ACCU-CHEK COMFORT CURVE STRIP VI SCH ×4 (06:24→22:27)
[2023-02-08] MEDS: InsuLIN REG 1unit/0.01ml Soln (100units/ml) SC SCH ×4 (06:24→22:00)
[2023-02-08 06:30] LABS: Albumin 2.6 g/dL (3.4-5.0); Calcium 8.4 mg/dL (8.5-10.1); Potassium 3.7 mmol/L (3.5-5.1)
[2023-02-08 07:17] LABS: BUN/Creatinine Ratio 18.5 (10.0-20.0); Bilirubin, Total 0.5 mg/dL (0.2-1.0); Total Protein 6.2 g/dL (6.4-8.2)
[2023-02-08 08:00] VITALS: BP 120/60
[2023-02-08] MEDS: SODIUM CHLORIDE 0.9% 1,000 ML IV SCH (08:00)
[2023-02-08] MEDS: cefTRIAXone 1GM/50ML D5W 50 ML IV SCH (08:00)
[2023-02-08 09:26] VITALS: BP 120/60
[2023-02-08] MEDS: EMPAGLIFLOZIN 10 MG TAB PO SCH (09:59)
[2023-02-08] MEDS: amLODIPine BESYLATE 5 MG TAB PO SCH (10:01)
[2023-02-08] MEDS: FINASTERIDE 5 MG TAB PO SCH (10:01)
[2023-02-08] MEDS: glipiZIDE 5 MG TAB PO SCH ×2 (10:07→22:00)
[2023-02-08 13:00] VITALS: BP 144/64
[2023-02-08 17:29] VITALS: BP 131/69
[2023-02-08] MEDS: TAMSULOSIN HYDROCHLORIDE 0.4 MG CAP PO SCH (18:53)
[2023-02-08 22:00] VITALS: BP 137/67
[2023-02-08] MEDS: ATORVASTATIN 20 MG TAB PO SCH (22:26)
[2023-02-09] VITALS (10 sets, daily range): BP systolic 104–151; BP diastolic 51–72
[2023-02-09] MEDS: SODIUM CHLORIDE 0.9% 1,000 ML IV SCH ×2 (00:50→21:28)
[2023-02-09] MEDS: QUEtiapine FUMARATE 100 MG TAB PO SCH ×3 (06:00→21:20)
[2023-02-09 06:01] LABS: Basophils # (auto) 0.1 10 ^3/uL (0-0.2); Basophils % (auto) 0.7 % (0.0-2.0); Eosinophils # (auto) 0.3 10 ^3/uL (0-0.8); Eosinophils % (auto) 3.8 % (0.0-7.0); Hematocrit 29.2 % (41.0-53.0); Hemoglobin 9.9 g/dL (13.5-17.5); Lymphocytes % (auto) 11.8 % (10.0-50.0); Mean Corpuscular Hemoglobin 31.3 pg (28.0-32.0); Mean Corpuscular Hgb Conc. 33.8 g/dL (32.0-36.0); Mean Corpuscular Volume 92.8 fL (80.0-100.0); Monocytes # (auto) 0.8 10 ^3/uL (0-1.3); Monocytes % (auto) 9.2 % (0.0-12.0); Neutrophils # (auto) 6.6 10 ^3/uL (1.6-8.6); Neutrophils % (auto) 74.5 % (37.0-80.0); Red Blood Cells 3.15 10^6/uL (4.5-5.90); Red Cell Distribution Width 14.5 % (11.8-14.3); White Blood Cell 8.8 10^3/uL (4.4-10.8)
[2023-02-09] MEDS: ACCU-CHEK COMFORT CURVE STRIP VI SCH ×4 (06:12→21:21)
[2023-02-09] MEDS: InsuLIN REG 1unit/0.01ml Soln (100units/ml) SC SCH ×4 (06:12→21:43)
[2023-02-09] MEDS: hydrALAZINE HCL 20 MG/ML VL IV PRN (06:13)
[2023-02-09 06:16] LABS: Calcium 8.3 mg/dL (8.5-10.1); Potassium 3.7 mmol/L (3.5-5.1)
[2023-02-09 06:21] LABS: Albumin 2.3 g/dL (3.4-5.0); BUN/Creatinine Ratio 19.2 (10.0-20.0); Bilirubin, Total 0.5 mg/dL (0.2-1.0)
[2023-02-09] MEDS ORDERED: fentaNYL CITRATE 100 MCG/2 ML VL ONE (07:57)
[2023-02-09] MEDS ORDERED: MIDAZOLAM HCL 2MG/2ML 2ml VIAL (1mg/ml) ONE (07:58)
[2023-02-09] MEDS ORDERED: LIDOCAINE 2%HCL (LOCAL ANESTH.) INJ 10ml MDV ONE ×2 (07:58)
[2023-02-09] MEDS ORDERED: IODIXANOL 320MG/ML 100ML BTL IV ONE (08:10)
[2023-02-09] MEDS ORDERED: cefTRIAXone 1GM/50ML D5W 50 ML IV ONE (08:21)
[2023-02-09] MEDS: cefTRIAXone 1GM/50ML D5W 50 ML IV SCH ×2 (08:39→10:17)
[2023-02-09] MEDS: glipiZIDE 5 MG TAB PO SCH ×2 (10:00→21:20)
[2023-02-09] MEDS: FINASTERIDE 5 MG TAB PO SCH (10:33)
[2023-02-09] MEDS: EMPAGLIFLOZIN 10 MG TAB PO SCH (10:34)
[2023-02-09] MEDS: amLODIPine BESYLATE 5 MG TAB PO SCH (10:34)
[2023-02-09] MEDS: TAMSULOSIN HYDROCHLORIDE 0.4 MG CAP PO SCH (18:03)
[2023-02-09] MEDS: ATORVASTATIN 20 MG TAB PO SCH (21:20)
[2023-02-09] MEDS: ACETAMINOPHEN 325 MG TAB PO PRN (21:32)
[2023-02-09] MEDS ORDERED: HALOPERIDOL LACTATE 5 MG/ML INJ VIAL IM PRN (22:00)
[2023-02-10] MEDS ORDERED: TEMAZEPAM 15 MG CAP PO ONE (03:15)
[2023-02-10 05:00] VITALS: BP 123/75
[2023-02-10] MEDS: QUEtiapine FUMARATE 100 MG TAB PO SCH ×3 (06:08→23:19)
[2023-02-10] MEDS: ACCU-CHEK COMFORT CURVE STRIP VI SCH ×4 (06:09→23:29)
[2023-02-10] MEDS: InsuLIN REG 1unit/0.01ml Soln (100units/ml) SC SCH ×4 (06:09→23:31)
[2023-02-10 06:41] LABS: Basophils # (auto) 0.1 10 ^3/uL (0-0.2); Basophils % (auto) 0.7 % (0.0-2.0); Eosinophils # (auto) 0.4 10 ^3/uL (0-0.8); Eosinophils % (auto) 5.9 % (0.0-7.0); Hematocrit 25.9 % (41.0-53.0); Hemoglobin 8.8 g/dL (13.5-17.5); Lymphocytes # (auto) 1.1 10 ^3/uL (0.4-5.4); Lymphocytes % (auto) 14.5 % (10.0-50.0); Mean Corpuscular Hemoglobin 31.1 pg (28.0-32.0); Mean Corpuscular Hgb Conc. 34.1 g/dL (32.0-36.0); Mean Corpuscular Volume 91.2 fL (80.0-100.0); Monocytes # (auto) 0.7 10 ^3/uL (0-1.3); Monocytes % (auto) 9.2 % (0.0-12.0); Neutrophils # (auto) 5.3 10 ^3/uL (1.6-8.6); Neutrophils % (auto) 69.7 % (37.0-80.0); Red Blood Cells 2.84 10^6/uL (4.5-5.90); Red Cell Distribution Width 14.7 % (11.8-14.3); White Blood Cell 7.6 10^3/uL (4.4-10.8)
[2023-02-10 06:53] LABS: Potassium 3.4 mmol/L (3.5-5.1)
[2023-02-10 06:59] LABS: Albumin 2.2 g/dL (3.4-5.0); BUN/Creatinine Ratio 21.4 (10.0-20.0); Calcium 8.1 mg/dL (8.5-10.1)
[2023-02-10 07:01] LABS: Bilirubin, Total 0.4 mg/dL (0.2-1.0); Total Protein 5.7 g/dL (6.4-8.2)
[2023-02-10 09:26] VITALS: BP 128/63
[2023-02-10] MEDS ORDERED: POTASSIUM CHL 20 Meq TABLET PO ONE (09:30)
[2023-02-10] MEDS: SODIUM CHLORIDE 0.9% 1,000 ML IV SCH (10:10)
[2023-02-10] MEDS: EMPAGLIFLOZIN 10 MG TAB PO SCH (10:57)
[2023-02-10] MEDS: FINASTERIDE 5 MG TAB PO SCH (10:58)
[2023-02-10] MEDS: amLODIPine BESYLATE 5 MG TAB PO SCH (10:58)
[2023-02-10] MEDS: HYDROcodone-ACET 5/325MG TAB PO PRN (11:00)
[2023-02-10] MEDS: glipiZIDE 5 MG TAB PO SCH ×2 (11:08→23:20)
[2023-02-10 13:13] VITALS: BP 141/67
[2023-02-10] MEDS: TAMSULOSIN HYDROCHLORIDE 0.4 MG CAP PO SCH (17:54)
[2023-02-10 22:00] VITALS: BP 157/68
[2023-02-10] MEDS: ATORVASTATIN 20 MG TAB PO SCH (23:19)
[2023-02-10] MEDS: hydrALAZINE HCL 20 MG/ML VL IV PRN (23:24)
[2023-02-11] MEDS: SODIUM CHLORIDE 0.9% 1,000 ML IV SCH (04:40)
[2023-02-11 05:00] VITALS: BP 147/73
[2023-02-11 06:26] LABS: Basophils # (auto) 0 10 ^3/uL (0-0.2); Basophils % (auto) 0.5 % (0.0-2.0); Eosinophils # (auto) 0.3 10 ^3/uL (0-0.8); Eosinophils % (auto) 4.6 % (0.0-7.0); Hemoglobin 8.6 g/dL (13.5-17.5); Lymphocytes # (auto) 1.1 10 ^3/uL (0.4-5.4); Lymphocytes % (auto) 16.8 % (10.0-50.0); Mean Corpuscular Hemoglobin 31.6 pg (28.0-32.0); Mean Corpuscular Hgb Conc. 34.4 g/dL (32.0-36.0); Mean Corpuscular Volume 91.7 fL (80.0-100.0); Monocytes # (auto) 0.6 10 ^3/uL (0-1.3); Monocytes % (auto) 8.8 % (0.0-12.0); Neutrophils # (auto) 4.7 10 ^3/uL (1.6-8.6); Neutrophils % (auto) 69.3 % (37.0-80.0); Nucleated Red Blood Cells % 0.2 %; Red Blood Cells 2.72 10^6/uL (4.5-5.90); Red Cell Distribution Width 14.3 % (11.8-14.3); White Blood Cell 6.8 10^3/uL (4.4-10.8)
[2023-02-11 06:35] LABS: Albumin 2.1 g/dL (3.4-5.0); Calcium 7.7 mg/dL (8.5-10.1); Potassium 3.9 mmol/L (3.5-5.1)
[2023-02-11 06:39] LABS: BUN/Creatinine Ratio 20.4 (10.0-20.0); Bilirubin, Total 0.4 mg/dL (0.2-1.0); Total Protein 5.6 g/dL (6.4-8.2)
[2023-02-11] MEDS: QUEtiapine FUMARATE 100 MG TAB PO SCH ×3 (06:50→21:32)
[2023-02-11] MEDS: ACCU-CHEK COMFORT CURVE STRIP VI SCH ×4 (06:52→21:34)
[2023-02-11] MEDS: InsuLIN REG 1unit/0.01ml Soln (100units/ml) SC SCH ×4 (06:53→21:47)
[2023-02-11 08:57] VITALS: BP 132/66
[2023-02-11] MEDS: glipiZIDE 5 MG TAB PO SCH ×2 (09:35→21:34)
[2023-02-11] MEDS: EMPAGLIFLOZIN 10 MG TAB PO SCH (09:35)
[2023-02-11] MEDS: cefTRIAXone 1GM/50ML D5W 50 ML IV SCH (09:35)
[2023-02-11] MEDS: amLODIPine BESYLATE 5 MG TAB PO SCH (09:36)
[2023-02-11] MEDS: FINASTERIDE 5 MG TAB PO SCH (09:36)
[2023-02-11 13:00] VITALS: BP 146/68
[2023-02-11 16:41] VITALS: BP 136/66
[2023-02-11] MEDS: TAMSULOSIN HYDROCHLORIDE 0.4 MG CAP PO SCH (17:24)
[2023-02-11 20:00] VITALS: BP 136/66
[2023-02-11] MEDS: ATORVASTATIN 20 MG TAB PO SCH (21:32)
[2023-02-11 22:00] VITALS: BP 136/66
[2023-02-12] MEDS: SODIUM CHLORIDE 0.9% 1,000 ML IV SCH ×3 (01:07→23:47)
[2023-02-12 05:00] VITALS: BP 153/77
[2023-02-12] MEDS: QUEtiapine FUMARATE 100 MG TAB PO SCH ×3 (05:28→21:48)
[2023-02-12 06:13] LABS: Basophils # (auto) 0.1 10 ^3/uL (0-0.2); Eosinophils # (auto) 0.3 10 ^3/uL (0-0.8); Lymphocytes # (auto) 1.2 10 ^3/uL (0.4-5.4); Monocytes # (auto) 0.6 10 ^3/uL (0-1.3); Neutrophils % (auto) 68.3 % (37.0-80.0); Red Cell Distribution Width 14.1 % (11.8-14.3)
[2023-02-12 06:16] LABS: Basophils % (auto) 0.8 % (0.0-2.0); Eosinophils % (auto) 4.7 % (0.0-7.0); Hematocrit 24.2 % (41.0-53.0); Hemoglobin 8.3 g/dL (13.5-17.5); Lymphocytes % (auto) 17.4 % (10.0-50.0); Mean Corpuscular Hemoglobin 30.9 pg (28.0-32.0); Mean Corpuscular Hgb Conc. 34.1 g/dL (32.0-36.0); Mean Corpuscular Volume 90.6 fL (80.0-100.0); Monocytes % (auto) 8.8 % (0.0-12.0); Neutrophils # (auto) 4.9 10 ^3/uL (1.6-8.6); Red Blood Cells 2.67 10^6/uL (4.5-5.90); White Blood Cell 7.2 10^3/uL (4.4-10.8)
[2023-02-12] MEDS: ACCU-CHEK COMFORT CURVE STRIP VI SCH ×4 (06:18→21:51)
[2023-02-12] MEDS: InsuLIN REG 1unit/0.01ml Soln (100units/ml) SC SCH ×4 (06:21→21:54)
[2023-02-12 06:27] LABS: Potassium 3.8 mmol/L (3.5-5.1)
[2023-02-12 06:30] LABS: BUN/Creatinine Ratio 18.6 (10.0-20.0)
[2023-02-12 06:33] LABS: Bilirubin, Total 0.3 mg/dL (0.2-1.0); Total Protein 5.7 g/dL (6.4-8.2)
[2023-02-12 09:24] VITALS: BP 144/72
[2023-02-12] MEDS: amLODIPine BESYLATE 5 MG TAB PO SCH (09:27)
[2023-02-12] MEDS: cefTRIAXone 1GM/50ML D5W 50 ML IV SCH (09:28)
[2023-02-12] MEDS: EMPAGLIFLOZIN 10 MG TAB PO SCH (09:28)
[2023-02-12] MEDS: glipiZIDE 5 MG TAB PO SCH ×2 (09:28→21:48)
[2023-02-12] MEDS: FINASTERIDE 5 MG TAB PO SCH (09:28)
[2023-02-12 13:16] VITALS: BP 140/69
[2023-02-12 17:00] VITALS: BP 145/73
[2023-02-12] MEDS: TAMSULOSIN HYDROCHLORIDE 0.4 MG CAP PO SCH (18:13)
[2023-02-12 20:00] VITALS: BP 145/73
[2023-02-12] MEDS: ATORVASTATIN 20 MG TAB PO SCH (21:48)
[2023-02-12 22:00] VITALS: BP 116/74
[2023-02-13 05:00] VITALS: BP 109/70
[2023-02-13] MEDS: QUEtiapine FUMARATE 100 MG TAB PO SCH ×3 (05:42→22:08)
[2023-02-13] MEDS: InsuLIN REG 1unit/0.01ml Soln (100units/ml) SC SCH ×4 (06:13→22:13)
[2023-02-13] MEDS: ACCU-CHEK COMFORT CURVE STRIP VI SCH ×4 (06:13→22:09)
[2023-02-13 06:41] LABS: Hematocrit 24.3 % (41.0-53.0); Monocytes # (auto) 0.6 10 ^3/uL (0-1.3); Neutrophils # (auto) 5.6 10 ^3/uL (1.6-8.6)
[2023-02-13 06:44] LABS: Basophils # (auto) 0 10 ^3/uL (0-0.2); Basophils % (auto) 0.2 % (0.0-2.0); Eosinophils # (auto) 0.4 10 ^3/uL (0-0.8); Eosinophils % (auto) 4.4 % (0.0-7.0); Hemoglobin 8.5 g/dL (13.5-17.5); Lymphocytes # (auto) 1.5 10 ^3/uL (0.4-5.4); Lymphocytes % (auto) 18.4 % (10.0-50.0); Mean Corpuscular Hemoglobin 31.2 pg (28.0-32.0); Mean Corpuscular Hgb Conc. 34.9 g/dL (32.0-36.0); Mean Corpuscular Volume 89.4 fL (80.0-100.0); Monocytes % (auto) 7.2 % (0.0-12.0); Neutrophils % (auto) 69.8 % (37.0-80.0); Red Blood Cells 2.72 10^6/uL (4.5-5.90)
[2023-02-13 06:57] LABS: Potassium 4.2 mmol/L (3.5-5.1)
[2023-02-13 07:03] LABS: BUN/Creatinine Ratio 18.6 (10.0-20.0); Bilirubin, Total 0.3 mg/dL (0.2-1.0); Total Protein 5.6 g/dL (6.4-8.2)
[2023-02-13] MEDS: cefTRIAXone 1GM/50ML D5W 50 ML IV SCH (08:40)
[2023-02-13] MEDS: FINASTERIDE 5 MG TAB PO SCH (08:55)
[2023-02-13] MEDS: amLODIPine BESYLATE 5 MG TAB PO SCH (08:56)
[2023-02-13] MEDS: EMPAGLIFLOZIN 10 MG TAB PO SCH (08:56)
[2023-02-13 08:59] VITALS: BP 133/66
[2023-02-13] MEDS: glipiZIDE 5 MG TAB PO SCH ×2 (12:11→22:09)
[2023-02-13 14:00] VITALS: BP 135/60
[2023-02-13] MEDS: SODIUM CHLORIDE 0.9% 1,000 ML IV SCH ×2 (14:45→21:25)
[2023-02-13 18:14] VITALS: BP 141/54
[2023-02-13] MEDS: TAMSULOSIN HYDROCHLORIDE 0.4 MG CAP PO SCH (18:18)
[2023-02-13 22:00] VITALS: BP 143/68
[2023-02-13] MEDS: ATORVASTATIN 20 MG TAB PO SCH (22:08)
[2023-02-14 05:00] VITALS: BP 152/73
[2023-02-14 05:39] LABS: Basophils # (auto) 0.1 10 ^3/uL (0-0.2); Basophils % (auto) 0.7 % (0.0-2.0); Eosinophils # (auto) 0.4 10 ^3/uL (0-0.8); Eosinophils % (auto) 4.1 % (0.0-7.0); Hematocrit 24.8 % (41.0-53.0); Hemoglobin 8.6 g/dL (13.5-17.5); Lymphocytes # (auto) 1.4 10 ^3/uL (0.4-5.4); Lymphocytes % (auto) 14.8 % (10.0-50.0); Mean Corpuscular Hemoglobin 31.6 pg (28.0-32.0); Mean Corpuscular Hgb Conc. 34.8 g/dL (32.0-36.0); Monocytes # (auto) 0.7 10 ^3/uL (0-1.3); Monocytes % (auto) 6.9 % (0.0-12.0); Neutrophils # (auto) 7.1 10 ^3/uL (1.6-8.6); Neutrophils % (auto) 73.5 % (37.0-80.0); Red Blood Cells 2.72 10^6/uL (4.5-5.90); White Blood Cell 9.7 10^3/uL (4.4-10.8)
[2023-02-14] MEDS: QUEtiapine FUMARATE 100 MG TAB PO SCH ×3 (05:49→21:38)
[2023-02-14 05:50] LABS: Albumin 2.1 g/dL (3.4-5.0); Calcium 7.9 mg/dL (8.5-10.1); Potassium 4.1 mmol/L (3.5-5.1)
[2023-02-14 05:53] LABS: BUN/Creatinine Ratio 18.4 (10.0-20.0); Bilirubin, Total 0.3 mg/dL (0.2-1.0)
[2023-02-14] MEDS: InsuLIN REG 1unit/0.01ml Soln (100units/ml) SC SCH ×4 (06:03→21:40)
[2023-02-14] MEDS: ACCU-CHEK COMFORT CURVE STRIP VI SCH ×4 (06:03→21:36)
[2023-02-14 06:06] LABS: INR 1.08 (0.9-1.15); Partial Thromboplastin Time 31.1 sec (24.6-33.4)
[2023-02-14] MEDS ORDERED: CIPROFLOXACIN 400MG/200ML 200 ML IV ONE (07:30)
[2023-02-14] MEDS ORDERED: LABETALOL HCL 5 MG/ML 4ML SYRINGE IV PRN (07:45)
[2023-02-14] MEDS ORDERED: ONDANSETRON HCL 4 MG/2 ML VIAL IV PRN (07:45)
[2023-02-14] MEDS ORDERED: MIDAZOLAM HCL 2MG/2ML 2ml VIAL (1mg/ml) IV PRN (07:45)
[2023-02-14] MEDS ORDERED: ePHEDrine SULFATE 50 MG/ML AMP IV PRN (07:45)
[2023-02-14] MEDS ORDERED: MORPHINE SULFATE 4 MG/ML SYR/VIAL IV PRN (07:45)
[2023-02-14] MEDS ORDERED: ACCU-CHEK COMFORT CURVE STRIP VI ONE (07:45)
[2023-02-14] MEDS ORDERED: MEPERIDINE HCL (25 MG/ML) 1ML VIAL ONE (07:49)
[2023-02-14] MEDS ORDERED: MIDAZOLAM HCL 2MG/2ML 2ml VIAL (1mg/ml) ONE (07:49)
[2023-02-14] MEDS ORDERED: fentaNYL CITRATE 100 MCG/2 ML VL ONE (07:49)
[2023-02-14] MEDS ORDERED: GENTAMICIN SULF 80 MG/2 ML VIAL ONE (08:18)
[2023-02-14] MEDS ORDERED: PROPOFOL 10 MG/ML 20 ML IV ONE (08:24)
[2023-02-14] MEDS: HYDROmorphone HCL 2 MG/ML VL/or syr IV PRN ×2 (08:58→09:10)
[2023-02-14] MEDS: amLODIPine BESYLATE 5 MG TAB PO SCH (10:00)
[2023-02-14] MEDS: FINASTERIDE 5 MG TAB PO SCH (10:12)
[2023-02-14] MEDS: glipiZIDE 5 MG TAB PO SCH ×2 (10:13→21:35)
[2023-02-14] MEDS: EMPAGLIFLOZIN 10 MG TAB PO SCH (10:14)
[2023-02-14] MEDS: CIPROFLOXACIN 400MG/200ML 200 ML IV SCH ×2 (11:03→21:35)
[2023-02-14] MEDS ORDERED: LORazepam 2MG/ML-1ML VIAL IM ONE (12:45)
[2023-02-14] MEDS: HYDROcodone-ACET 5/325MG TAB PO PRN (14:30)
[2023-02-14] MEDS: SODIUM CHLORIDE 0.9% 1,000 ML IV SCH (14:31)
[2023-02-14 17:00] VITALS: BP 131/65
[2023-02-14] MEDS: TAMSULOSIN HYDROCHLORIDE 0.4 MG CAP PO SCH (18:08)
[2023-02-14] MEDS: ATORVASTATIN 20 MG TAB PO SCH (21:35)
[2023-02-15] MEDS: QUEtiapine FUMARATE 100 MG TAB PO SCH ×2 (05:34→13:58)
[2023-02-15] MEDS: ACCU-CHEK COMFORT CURVE STRIP VI SCH ×3 (06:35→18:16)
[2023-02-15] MEDS: InsuLIN REG 1unit/0.01ml Soln (100units/ml) SC SCH ×3 (06:36→18:21)
[2023-02-15] MEDS: SODIUM CHLORIDE 0.9% 1,000 ML IV SCH (06:41)
[2023-02-15 06:45] LABS: Basophils # (auto) 0 10 ^3/uL (0-0.2); Basophils % (auto) 0.3 % (0.0-2.0); Eosinophils # (auto) 0 10 ^3/uL (0-0.8); Eosinophils % (auto) 0.3 % (0.0-7.0); Hematocrit 23.8 % (41.0-53.0); Hemoglobin 8.2 g/dL (13.5-17.5); Lymphocytes # (auto) 0.9 10 ^3/uL (0.4-5.4); Lymphocytes % (auto) 11.4 % (10.0-50.0); Mean Corpuscular Hgb Conc. 34.3 g/dL (32.0-36.0); Mean Corpuscular Volume 90.3 fL (80.0-100.0); Monocytes # (auto) 0.7 10 ^3/uL (0-1.3); Monocytes % (auto) 8.4 % (0.0-12.0); Neutrophils # (auto) 6.2 10 ^3/uL (1.6-8.6); Neutrophils % (auto) 79.6 % (37.0-80.0); Red Blood Cells 2.63 10^6/uL (4.5-5.90); Red Cell Distribution Width 13.9 % (11.8-14.3); White Blood Cell 7.8 10^3/uL (4.4-10.8)
[2023-02-15 07:17] LABS: Potassium 4.2 mmol/L (3.5-5.1)
[2023-02-15 07:36] LABS: BUN/Creatinine Ratio 20.9 (10.0-20.0); Calcium 8.1 mg/dL (8.5-10.1)
[2023-02-15 08:00] VITALS: BP 132/64
[2023-02-15 09:00] VITALS: BP 132/64
[2023-02-15 09:08] LABS: Bilirubin, Total 0.2 mg/dL (0.2-1.0); Total Protein 5.8 g/dL (6.4-8.2)
[2023-02-15] MEDS: CIPROFLOXACIN 400MG/200ML 200 ML IV SCH (11:07)
[2023-02-15] MEDS: EMPAGLIFLOZIN 10 MG TAB PO SCH (11:09)
[2023-02-15] MEDS: amLODIPine BESYLATE 5 MG TAB PO SCH (11:11)
[2023-02-15] MEDS: FINASTERIDE 5 MG TAB PO SCH (11:11)
[2023-02-15] MEDS: glipiZIDE 5 MG TAB PO SCH (11:11)
[2023-02-15 13:00] VITALS: BP 141/68
[2023-02-15 16:53] VITALS: BP 134/67
[2023-02-15] MEDS: TAMSULOSIN HYDROCHLORIDE 0.4 MG CAP PO SCH (18:21)
[2023-02-15 19:00] VITALS: BP 132/64
[2023-02-15 20:56] VITALS: BP 151/74
== END 2023-02-15 21:35 | disposition home health service (06) | DRG 725 ==
LOC: ER 10:36 → TELE 13:32 → TELE-EAST 23:20 → EAST 02-09 14:45
PROVIDERS: ADMIT Nurse Practitioner Family; ATTEND Internal Medicine
PROC: 0T9130Z Drainage of Left Kidney with Drainage Device, Percutaneous Approach (ICD-10-PCS; 2023-02-09)
PROC: 0VB07ZX Excision of Prostate, Via Natural or Artificial Opening, Diagnostic (ICD-10-PCS; principal; 2023-02-14 07:35)
PROC: 0TJB8ZZ Inspection of Bladder, Via Natural or Artificial Opening Endoscopic (ICD-10-PCS; 2023-02-14 07:35)
DX: N40.1 Benign prostatic hyperplasia with lower urinary tract symptoms (principal); G93.41 Metabolic encephalopathy; N13.6 Pyonephrosis; E44.1 Mild protein-calorie malnutrition; F02.818 Dementia in other diseases classified elsewhere, unspecified severity, with other behavioral disturbance; N17.9 Acute kidney failure, unspecified; N18.4 Chronic kidney disease, stage 4 (severe); B96.89 Other specified bacterial agents as the cause of diseases classified elsewhere; E11.22 Type 2 diabetes mellitus with diabetic chronic kidney disease; E78.5 Hyperlipidemia, unspecified; I12.9 Hypertensive chronic kidney disease with stage 1 through stage 4 chronic kidney disease, or unspecified chronic kidney disease; K59.00 Constipation, unspecified; N32.9 Bladder disorder, unspecified; K80.20 Calculus of gallbladder without cholecystitis without obstruction; N21.0 Calculus in bladder; E11.42 Type 2 diabetes mellitus with diabetic polyneuropathy; G47.00 Insomnia, unspecified; Z20.822 Contact with and (suspected) exposure to COVID-19; R33.8 Other retention of urine; Z83.3 Family history of diabetes mellitus; Z82.0 Family history of epilepsy and other diseases of the nervous system; Z68.24 Body mass index [BMI] 24.0-24.9, adult
CPT/HCPCS: 36415; 70450; 70551; 71045; 74176; 74425; 76775; 76942; 80053; 80307; 81001; 82140; 82962; 83605; 84154; 84484; 85025; 85610; 85730; 86850; 86900; 86901; 87040; 87081; 87086; 87088; 87426; 93005; 95819; 97110; 97116; 97163; 97530; 99152; C9113; G0378; J0696; J1815; J2001; J2250; J2543; J2704; Q9967